=== PATIENT | female | born 1970 | race Caucasian/White ===

== ENCOUNTER 2022-02-01 19:53 | Emergency (ER) | payer OTHER, SELFPAY ==
--- NOTE | ~2022-02-01 | XR_ITS ---
EXAMINATION: XR CHEST CLINICAL INFORMATION: COVID COMPARISON: None TECHNIQUE: Frontal view of the chest was obtained. FINDINGS: No significant abnormality is noted involving the heart, lungs, mediastinum, bony thorax or soft tissues. XR/XR chest 1V IMPRESSION: No acute cardiopulmonary process.
[2022-02-01 20:42] VITALS: BP 158/85; PULSE 97; RESP 20; TEMP 36.9; O2SAT 97; BMI 42.6
[2022-02-01 21:09] LABS: COVID-19 Test Positive (Negative)
--- NOTE | 2022-02-01 23:47 | ED.ASTHMA ---
HPI - Asthma General Chief Complaint: Asthma Stated Complaint: wheezing asthma Time Seen by Provider: 02/01/22 23:39 Source: patient Mode of arrival: ambulatory Limitations: no limitations History of Present Illness HPI Narrative: 52-year-old female with a history of obesity, asthma, heart disease, anxiety who presents to the ER for wheezing, shortness of breath and cough. She states she was seen at [facility] twice last week for panic attacks and shortness of breath. She was prescribed hydroxyzine. Two days ago she started having a dry hacking cough. She has been using her albuterol inhaler 2 times a day but has been trying to avoid using it more than that due to palpitations and anxiety. She denies any fever or chills. No known sick contacts. She denies any chest pain. She has not vaccinated for COVID or flu. MD complaint: shortness of breath and wheezing Onset (ago): day(s) Severity: moderate Context: recent URI Associated symptoms: dry cough Asthma History: adult onset Related Data Current Asthma Therapy: inhaled bronchodilator Previous Rx's Medication Instructions Recorded prednisone 20 mg tablet 40 mg PO DAILY #10 tabs 02/02/22 Allergies Allergy/AdvReac Type Severity Reaction Status Date / Time No Known Allergies Allergy Unverified 12/27/19 15:09 [No Known Allergies*] Review of Systems Review of Systems: Constitutional: No Fever, No Chills ENT/Mouth: No sore throat, No Rhinorrhea Cardiovascular: No Chest Pain, + SOB, No Orthopnea, No Edema Respiratory: + Cough, No Sputum, + Wheezing, No dyspnea Gastrointestinal: No Nausea, No Vomiting, No Diarrhea, No abdominal Pain Musculoskeletal: No joint pain, + Myalgias Skin: No Skin Lesions, No rash Neuro: No Weakness, No Numbness, No Dizziness, No Headache Psych: + Anxiety/Panic, No Depression Heme/Lymph: No Bruising, No Lymphadenopathy PMFSH Social History Social History Patient Tobacco Use Status: Never used Tobacco Advance Directives: No Physical Exam Vital Signs: Vital Signs: Last Vital Signs Temp 98.4 F 02/01/22 20:42 Pulse 97 02/01/22 20:42 Resp 20 02/01/22 20:42 BP 158/85 H 02/01/22 20:42 Pulse Ox 97 02/01/22 20:42 O2 Del Method 02/01/22 20:42 BMI result Body Mass Index 42.6 Appearance: Alert. Oriented X3. No acute distress. Eyes: Pupils equal, round and reactive to light. ENT: Pharynx normal. Neck: Normal inspection. Neck supple. CVS: Normal heart rate and rhythm. Pulses normal. Respiratory: No respiratory distress. Breath sounds normal. Speaks in complete sentences Abdomen: Obese Soft and nontender. +BS x4 Skin: Skin warm and dry. Normal skin color. Normal skin turgor. No rashes. Extremities: No lower extremity edema. No calf tenderness. Neuro: Oriented X 3. Anxious, tearful. Course Course Course Narrative: 53-year-old female with history of asthma, heart disease, anxiety who presents to the ER for evaluation of wheezing, shortness of breath, dry cough. She is found to be COVID positive today. Her oxygen saturations are 97%. She is speaking in full sentences and her lungs are clear. Chest x-ray is negative for any infiltrate or COVID pneumonia. Results were discussed with the patient, she is very anxious and tearful. Given her risk factors and comorbidities will refer her for monoclonal antibodies at [facility]. Her home medicatiosn interact with bereket. Form has been completed and sent over. Will give her short course of prednisone as well for her wheezing. She will follow-up with her PCP. Return precautions were discussed. patient stable for discharge home. MDM - Asthma Lab Data Labs: Lab Results 02/01/22 Range/Units 20:49 COVID-19 (ELDON) Positive A (Negative) COVID-19 Clin Com See Note Discharge Plan Discharge Clinical Impression: COVID-19 Patient Disposition: Home, Self-Care Additional Instructions: You were found to be COVID-19 POSITIVE today. Your chest x-ray and oxygen levels were normal. Rest. Drink plenty of fluids. Do not go out in public for the next 10 days. Take over the counter cold/flu medications as needed for your symptoms. Take Tylenol and/or Motrin as needed for fevers and body aches. Follow up with your doctor this week. If you shortness of breath worsens , if you develop difficulty breathing or any other concerning symptom come back to the ER for further evaluation. Se encontr? que usted es COVID-19 POSITIVO hoy. [place]osey radiograf?a de t?rax y los niveles de ox?natalia fueron normales. Descansar. Beber mucho l?quido. No salga en p?blico radha los pr?ximos 10 d?as. [place] medicamentos de venta darshan para el resfriado o la gripe seg?n sea necesario para meagan s?ntomas. [place] Tylenol y/o Motrin seg?n sea necesario para la fiebre y los piper corporales. Chris un seguimiento con posey m?dico esta semana. Si posey dificultad para respirar empeora, si desarrolla dificultad para respirar o cualquier otro s?ntoma preocupante, regrese a la joey de emergencias para luis evaluaci?n adicional. Prescriptions: New prednisone 20 mg tablet 40 mg PO DAILY Qty: 10 0RF
--- OUTSIDE RECORDS SUMMARY | 2022-02-01 23:49 | XMS_ITS | Continuity of Care Document ---
:1970 Author Organization [facility] Address [address] [place] [id number]- Care Team Providers Name Role Phone Carlos Michelle DO Primary Care Physician Encounter [facility] [place] Date(s): 08/27/21 - 10/02/[address] [address] Attending Physician: Lisa Solares DO Admitting Physician: Lisa Solares DO Allergies, Adverse Reactions, Alerts No Known Allergies Immunizations Given and Recorded Vaccine Date Status Refusal Reason influenza virus vaccine, inactivated 02/19/19 Given influenza virus vaccine, inactivated1 01/10/17 Given influenza virus vaccine, inactivated 05/02/15 Given pneumococcal 23-valent vaccine 10/03/17 Given tetanus/diphtheria/pertussis, acel(Tdap) 10/03/17 Given Influenza Inactive (IM) (oldterm)2 12/18/08 Given Influenza Inactive (IM) (oldterm)3 03/25/08 Given Tet/Diphth/Acel, Pertussis (oldterm)4 03/25/08 Given 1Result Comment: [01/10/2017] [id number] Note: VIS GIVEN 11/19/083Admin Note: vis [id number] Note: vis given Medications acetaminophen 325 mg oral tablet 650 mg, 2, tablet, By Mouth, 4 times a day, PRN, # 16 tablet, Refills 0, Tot. Refills 0, Maintenance, as needed for pain, 06/12/21 21:45:00 EST, Route to Pharmacy Electronically, [facility]/pharmacy #[id number], Partial fill upon patient request if the prescriptio... Start Date: 06/12/21 Status: Orderedacetaminophen 650 mg oral tablet, extended release 1 tablet = 650 mg, By Mouth, Every 8 hours, PRN as needed for pain, # 60 tablet, 0 Refills, Maintenance, 06/06/21 21:01:00 EST, ER Tablet, [facility]/pharmacy #[id number], Partial fill upon patient request if the prescription is for a schedule II opioid drug., 150... Start Date: 06/06/21 Status: Orderedbetamethasone topical dipropionate 0.05% cream 1 application, Topically, Daily, # 45 Gm, 1 Refills, Maintenance, 03/30/18 16:19:01 EST, Cream, 1 application Topically Daily Start Date: 03/30/18 Status: Orderedcetirizine 10 mg oral tablet 1 tablet = 10 mg, By Mouth, Daily, # 30 tablet, 0 Refills, Maintenance, 03/03/20 18:10:00 EST, Tablet, [facility]/pharmacy #[id number], 150, cm, 02/21/20 9:34:00 EST, Height, 96, kg, 10/14/18 15:53:00 EDT, Dry Weight Start Date: 03/03/20 Status: Orderedchlorthalidone 25 mg oral tablet 25 mg, 1, tablet, By Mouth, Daily, Need labwork drawn before refills able to be given, # 30 tablet, Refills 5, Tot. Refills 5, Maintenance, 04/06/21 15:22:00 EST, Route to Pharmacy Electronically, [facility]/pharmacy #[id number], 150, cm, 03/23/21 13:56:00 EST, He... Start Date: 04/06/21 Stop Date: 10/03/21 Status: OrderedCompression Stockings See Instructions, # 1 pair, Maintenance, surgical, calf length 20-30 mm Hg R60.0- E66.9, 10/27/18 10:01:03 EDT, Compound Start Date: 10/27/18 Status: Ordereddiclofenac 1% topical gel 1 application, Topically, 4 times a day, # 100 Gm, 0 Refills, Maintenance, Gel Start Date: 02/19/19 Status: Ordereddiclofenac 1% topical gel 1 application, Topically, 4 times a day, PRN for pain, # 100 Gm, 0 Refills, Maintenance, 06/03/21 15:21:00 EST, Gel, [facility]/pharmacy #[id number], 150, cm, 06/03/21 13:32:00 EST, Height Start Date: 06/03/21 Stop Date: 06/17/21 Status: Ordereddocusate sodium 100 mg oral capsule 100 mg, 1, capsule, By Mouth, 2 times a day, PRN, # 50 capsule, Refills 6, Tot. Refills 6, Maintenance, for constipation, 09/21/18 9:49:50 EDT, Route to Pharmacy Electronically, [id number], [facility]/pharmacy #[id number] Start Date: 09/21/18 Status: Orderedergocalciferol 80159 iu oral capsule 50,000 International_Units, 1, capsule, By Mouth, Every week, take with oily food or milk, # 13 capsule, Refills 0, Tot. Refills 0, Maintenance, 01/18/19 15:18:55 EDT, Route to Pharmacy Electronically, [id number], [facility]/pharmac... Start Date: 01/18/19 Stop Date: 04/18/19 Status: Orderedfamotidine 20 mg oral tablet 20 mg, 1, tablet, By Mouth, 2 times a day, # 60 tablet, Refills 0, Tot. Refills 0, Maintenance, 09/16/21 15:39:00 EDT, Route to Pharmacy Electronically, [facility]/pharmacy #[id number], Partial fill upon patient request if the prescription is for a schedule II opi... Start Date: 09/16/21 Status: Orderedferrous sulfate 325 mg oral enteric coated tablet 325 mg, 1, tablet, By Mouth, Daily, # 45 tablet, Refills 3, Tot. Refills 3, Maintenance, 07/02/21 15:01:00 EDT, Route to Pharmacy Electronically, [facility]/pharmacy #[id number], Partial fill upon patient request if the prescription is for a schedule II opioid jarrett... Start Date: 07/02/21 Status: OrderedFlonase 50 mcg/inh nasal spray 2 sprays, Nares, Both, Daily in AM, # 16 Gm, 2 Refills, Maintenance, 09/21/18 9:51:40 EDT, [place], 2 sprays Nares, Both Daily in AM,x30 days Start Date: 09/21/18 Stop Date: 12/20/18 Status: OrderedFLUoxetine 20 mg oral capsule 20 mg, 1, capsule, By Mouth, Daily, # 90 capsule, Refills 0, Tot. Refills 0, Maintenance, 02/26/21 15:21:00 EST, Route to Pharmacy Electronically, [facility]/pharmacy #[id number], Partial fill upon patient request if the prescription is for a schedule II opioid dr... Start Date: 02/26/21 Status: Orderedfluticasone CFC free 220 mcg/inh inhalation aerosol 1 puffs, Inhalation, 2 times a day, rinse mouth and throat after use, # 12 Gm, 11 Refills, Maintenance, 02/15/18 10:51:40 EST, Aerosol Start Date: 02/15/18 Status: Orderedibuprofen 600 mg oral tablet 600 mg, 1, tablet, By Mouth, 3 times a day, # 90 tablet, Refills 0, Tot. Refills 0, Maintenance, 06/06/21 21:01:00 EST, Route to Pharmacy Electronically, [facility]/pharmacy #[id number], Partial fill upon patient request if the prescription is for a schedule II op... Start Date: 06/06/21 Status: OrderedLidoderm 5% film 1 patch, Topically, Daily, remove patches after 12 hours and leave off for 12 hours before replacing. You may apply 1-2 patches to the area., # 30 patch, 0 Refills, Maintenance, 06/12/21 21:45:00 EST, [facility]/pharmacy #[id number], Partial fill upon patient req... Start Date: 06/12/21 Status: Orderedlosartan 50 mg oral tablet 50 mg, 1, tablet, By Mouth, Daily, # 30 tablet, Refills 5, Tot. Refills 5, Maintenance, 04/06/21 15:22:00 EST, Route to Pharmacy Electronically, [facility]/pharmacy #[id number], 150, cm, 03/23/21 13:56:00 EST, Height Start Date: 04/06/21 Status: OrderedMiraLax oral powder for reconstitution = 17 Gm, By Mouth, Daily, dissolve in water before taking, # 255 Gm, 0 Refills, Maintenance, 07/02/21 22:10:00 EDT, REC Powder, [facility]/pharmacy #[id number], Partial fill upon patient request if the prescriptionis for a schedule II opioid drug., 17 Gm By Mouth... Start Date: 07/02/21 Status: Orderednaproxen 250 mg oral tablet See Instructions, # 60 tablet, TAKE 1 TABLET BY MOUTH TWICE A DAY, [facility]/pharmacy #[id number] Start Date: 01/01/19 Status: OrderedProAir HFA 90 mcg/inh inhalation aerosol with adapter 2, puffs, Inhalation, 4 times a day, PRN, # 2 each, Refills 3, Tot. Refills 3, Maintenance, :03:26 EDT, Route to Pharmacy Electronically, [id number], [facility]/pharmacy #[id number] Start Date: 09/28/18 Stop Date: 09/23/19 Status: OrderedVitamin C 500 mg oral tablet 1 tablet = 500 mg, By Mouth, Daily, # 90 tablet, 0 Refills, Maintenance, 07/02/21 15:01:00 EDT, Tablet, [facility]/pharmacy #[id number], Partial fill upon patient request if the prescription is for a schedule II opioid drug., 150, cm, 07/02/21 14:28:00 EDT, Height... Start Date: 07/02/21 Status: OrderedVitamin C 500 mg oral tablet 1 tablet = 500 mg, By Mouth, Daily, # 30 tablet, 3 Refills, Maintenance, 01/18/19 15:20:18 EDT, Tablet Start Date: 01/18/19 Stop Date: 05/18/19 Status: OrderedVitamin D3 50,000 intl units oral capsule 1 capsule = 1,250 mcg, By Mouth, Every week, # 6 capsule, 0 Refills, Maintenance, 07/02/21 15:09:00 EDT, Capsule, [facility]/pharmacy #[id number], Partial fill upon patient request if the prescription is for a schedule II opioid drug., 150, cm, 07/02/21 14:28:00 E... Start Date: 07/02/21 Stop Date: 08/13/21 Status: OrderedWalker with Wheels Walker with Wheels, See Instructions, # 1 each, Refills 0, Tot. Refills 0, Maintenance, Walker with Wheels Use as directed to assist with ambulation Dx: M54.50, M17.10 Duration: Lifetime, 06/11/21 16:44:00 EST, Supply Start Date: 06/11/21 Status: Ordered Problem List Condition Effective Dates Status Health Status Informant Allergic rhinitis(Confirmed) Active Asthma(Confirmed) Active Breast pain(Confirmed) Active Chronic low back pain(Confirmed) Active H/O vitamin D deficiency(Confirmed) Active Hypertension(Confirmed) Active Iron deficiency anemia(Confirmed)1 Active Lipoma of arm(Confirmed) Active Obesity(Confirmed) Active Knee osteoarthritis(Confirmed) Active Severe obesity(Confirmed) Active 1heavy periods Social History Social History Type Response Smoking Status Current some day smoker; Typ e: Cigarettes; Previous treatment: None; Interested in cessation: Yes; Tobacco use times per day: 3; Number of years: 30; Started at age: 16; entered on: 10/03/17 Sex Female
--- OUTSIDE RECORDS SUMMARY | 2022-02-01 23:49 | XMS_ITS | Continuity of Care Document ---
:1970 Author Organization [facility] Address [address] [place] [address]- Care Team Providers Name Role Phone Carlos Michelle DO Primary Care Physician Encounter [facility] [place] Date(s): 03/03/20 - 06/01/20 [facility] [address] [place] [address] Attending Physician: Claudio Rosario MD Admitting Physician: Claudio Rosario MD Referring Physician: Carlos Michelle DO Allergies, Adverse Reactions, Alerts Substance Reaction Severity Status NKA Active Immunizations Given and Recorded Vaccine Date Status Refusal Reason influenza virus vaccine, inactivated 02/19/19 Given influenza virus vaccine, inactivated1 01/10/17 Given influenza virus vaccine, inactivated 05/02/15 Given pneumococcal 23-valent vaccine 10/03/17 Given tetanus/diphtheria/pertussis, acel(Tdap) 10/03/17 Given Influenza Inactive (IM) (oldterm)2 12/18/08 Given Influenza Inactive (IM) (oldterm)3 03/25/08 Given Tet/Diphth/Acel, Pertussis (oldterm)4 03/25/08 Given 1Result Comment: [01/10/2017] [id number] Note: VIS GIVEN 11/19/083Admin Note: vis [id number] Note: vis given Medications betamethasone topical dipropionate 0.05% cream 1 application, Topically, Daily, # 45 Gm, 1 Refills, Maintenance, 03/30/18 16:19:01 EST, Cream, 1 application Topically Daily Start Date: 03/30/18 Status: Orderedcetirizine 10 mg oral tablet 1 tablet = 10 mg, By Mouth, Daily, # 30 tablet, 0 Refills, Maintenance, 03/03/20 18:10:00 EST, Tablet, [facility]/pharmacy #[id number], 150, cm, 02/21/20 9:34:00 EST, Height, 96, kg, 10/14/18 15:53:00 EDT, Dry Weight Start Date: 03/03/20 Status: Orderedchlorthalidone 25 mg oral tablet 25 mg, 1, tablet, By Mouth, Daily, Need labwork drawn before refills able to be given, # 30 tablet, Refills 0, Tot. Refills 0, Maintenance, 04/16/20 23:31:00 EST, [id number] 150, cm, 02/21/20 9:34:00 EST, Hei... Start Date: 04/16/20 Stop Date: 05/16/20 Status: OrderedCompression Stockings See Instructions, # 1 [...] pain, # 100 Gm, 0 Refills, Maintenance, 02/23/19 14:23:10 EST, Gel Start Date: 02/23/19 Status: Ordereddocusate sodium 100 mg oral capsule 100 mg, 1, capsule, By Mouth, 2 times a day, PRN, # 50 capsule, Refills 6, Tot. Refills 6, Maintenance, for constipation, 09/21/18 9:49:50 EDT, Route to Pharmacy Electronically, [id number], [facility]/pharmacy #[id number] Start Date: 09/21/18 Status: Orderedergocalciferol 64593 iu oral capsule 50,000 International_Units, 1, capsule, By Mouth, Every week, take with oily food or milk, # 13 capsule, Refills 0, Tot. Refills 0, Maintenance, 01/18/19 15:18:55 EDT, Route to Pharmacy Electronically, [id number], [facility]/pharmac... Start Date: 01/18/19 Stop Date: 04/18/19 Status: Orderedferrous sulfate 325 mg oral tablet 1 tablet = 325 mg, By Mouth, Every other day, for 90 days, # 45 tablet, 11 Refills, Hard Stop 11/21/21 14:03:20 EDT, 12/07/18 14:03:20 EDT, Tablet Start Date: 12/07/18 Stop Date: 11/21/21 Status: OrderedFlonase 50 mcg/inh nasal spray 2 sprays, Nares, Both, Daily in AM, # 16 Gm, 2 Refills, Maintenance, 09/21/18 9:51:40 EDT, [place], 2 sprays Nares, Both Daily in AM,x30 days Start Date: 09/21/18 Stop Date: 12/20/18 Status: Orderedfluticasone CFC free 220 mcg/inh inhalation aerosol 1 puffs, Inhalation, 2 times a day, rinse mouth and throat after use, # 12 Gm, 11 Refills, Maintenance, 02/15/18 10:51:40 EST, Aerosol Start Date: 02/15/18 Status: Orderedlosartan 50 mg oral tablet 50 mg, 1, tablet, By Mouth, Daily, # 30 tablet, Refills 5, Tot. Refills 5, Maintenance, 03/03/20 18:11:00 EST, Route to Pharmacy Electronically, [facility]/pharmacy #[id number], 150, cm, 02/21/20 9:34:00 EST, Height, 96, kg, 10/14/18 15:53:00 EDT, Dry Weight Start Date: 03/03/20 Status: Orderednaproxen 250 mg oral tablet See Instructions, # 60 tablet, TAKE 1 TABLET BY MOUTH TWICE A DAY, [facility]/pharmacy #[id number] Start Date: 01/01/19 Status: OrderedProAir HFA 90 mcg/inh inhalation aerosol with adapter 2, puffs, Inhalation, 4 times a day, PRN, # 2 each, Refills 3, Tot. Refills 3, Maintenance, 199:03:26 EDT, Route to Pharmacy Electronically, [id number], [facility] #[id number] Start Date: 09/28/18 Stop Date: 09/23/19 Status: OrderedVitamin C 500 mg oral tablet 1 tablet = 500 mg, By Mouth, Daily, # 30 tablet, 3 Refills, Maintenance, 01/18/19 15:20:18 EDT, Tablet Start Date: 01/18/19 Stop Date: 05/18/19 Status: Ordered Problem List Condition Effective Dates Status Health Status Informant Allergic rhinitis(Confirmed) Active Asthma(Confirmed) Active Breast pain(Confirmed) Active Chronic low back pain(Confirmed) Active H/O vitamin D deficiency(Confirmed) Active Hypertension(Confirmed) Active Iron deficiency anemia(Confirmed)1 Active Lipoma of arm(Confirmed) Active Obesity(Confirmed) Active Knee osteoarthritis(Confirmed) Active 1heavy periods Social History Social History Type Response Smoking Status Current some day smoker; Typ e: Cigarettes; Previous treatment: None; Interested in cessation: Yes; Tobacco use times per day: 3; Number of years: 30; Started at age: 16; entered on: 10/03/17 Sex Female
--- OUTSIDE RECORDS SUMMARY | 2022-02-01 23:49 | XMS_ITS | Continuity of Care Document ---
:1970 Author Organization [facility] Address [address] [place] [address]- Care Team Providers Name Role Phone Carlos Michelle DO Primary Care Physician Encounter [facility] [place] Date(s): 03/23/21 - 03/30/21 [facility] [address], [place] [address] Attending Physician: Kalen Tiwari DO Referring Physician: Carlos Michelle DO Allergies, Adverse [...] Pertussis (oldterm)4 03/25/08 Given 1Result Comment: [01/10/2017] [id number] Note: VIS GIVEN 11/19/083Admin Note: vis [id number] Note: vis given Medications betamethasone topical dipropionate 0.05% cream 1 application, Topically, Daily, # 45 Gm, 1 Refills, Maintenance, 03/30/18 16:19:01 EST, Cream, 1 application Topically Daily Start Date: 03/30/18 Status: Orderedcetirizine 10 mg oral tablet 1 tablet = 10 mg, By Mouth, Daily, # 30 tablet, 0 Refills, Maintenance, 03/03/20 18:10:00 EST, Tablet, [id number], 150, cm, 02/21/20 9:34:00 EST, Height, 96, kg, 10/14/18 15:53:00 EDT, Dry Weight Start Date: 03/03/20 Status: Orderedchlorthalidone 25 mg oral tablet 25 mg, 1, tablet, By Mouth, Daily, Need labwork drawn before refills able to be given, # 30 tablet, Refills 0, Tot. Refills 0, Maintenance, 06/02/20 13:37:00 EST, [id number], cm, 02/21/20 9:34:00 EST, Hei... Start Date: 06/02/20 Stop Date: 07/02/20 Status: Orderedclotrimazole 10 mg oral lozenge 10 mg, 1, lozenge, By Mouth, 5 times a day, for 10 days, # 50 lozenge, Refills 0, Tot. Refills 0, Acute 04/02/21 14:28:00 EST, 03/23/21 14:28:00 EST, [id number] Partial fill upon patient request if the prescr... Start Date: 03/23/21 Stop Date: 04/02/21 Status: OrderedCompression Stockings See Instructions, # 1 [...] 09/21/18 9:49:50 EDT, Route to Pharmacy Electronically, [id number], [facility]acy #[id number] Start Date: 09/21/18 Status: Orderedergocalciferol 86055 iu oral capsule 50,000 International_Units, 1, capsule, By Mouth, Every week, take with oily food or milk, # 13 capsule, Refills 0, Tot. Refills 0, Maintenance, 01/18/19 15:18:55 EDT, Route to Pharmacy Electronically, [id number], [facility]/pharmac... Start Date: 01/18/19 Stop [...] Gm, 2 Refills, Maintenance, 09/21/18 9:51:40 EDT, [place], 2 sprays Nares, Both Daily in AM,x30 days Start Date: 09/21/18 Stop Date: 12/20/18 Status: OrderedFLUoxetine 20 mg oral capsule 20 mg, 1, capsule, By Mouth, Daily, # 90 capsule, Refills 0, Tot. Refills 0, Maintenance, 02/26/21 15:21:00 EST, Route to Pharmacy Electronically, [facility]/pharmacy #[id number], Partial fill upon patient request [...] 03/03/20 18:11:00 EST, Route to Pharmacy Electronically, [facility]/pharmacy #[id number], 150, cm, 02/21/20 9:34:00 EST, Height, 96, kg, 10/14/18 15:53:00 EDT, Dry Weight Start Date: 03/03/20 Status: Orderednaproxen 250 mg oral tablet See Instructions, # 60 tablet, TAKE 1 TABLET BY MOUTH TWICE A DAY, [facility]/pharmacy #[id number] Start Date: 01/01/19 Status: OrderedProAir HFA 90 mcg/inh inhalation aerosol with adapter 2, puffs, Inhalation, 4 times a day, PRN, # 2 each, Refills 3, Tot. Refills 3, Maintenance, 199:03:26 EDT, Route to Pharmacy Electronically, [id number], [facility] #[id number] Start Date: 09/28/18 Stop Date: [...] osteoarthritis(Confirmed) Active Severe obesity(Confirmed) Active 1heavy periods Vital Signs Most recent to oldest [Reference Range]: 1 Height 150 cm (03/23/21 1:56 PM) Oxygen Saturation [94-100 %] 100 % (03/23/21 1:56 PM) Pulse Rate [55-90 bpm] 119 bpm *H* (03/23/21 1:56 PM) Blood Pressure [90-138/55-84 mm Hg] 198/96 mm Hg *H* (03/23/21 1:56 PM) Temperature [96.8-100.4 DegF] 98.7 DegF (03/23/21 1:56 PM) Mode of Delivery (Oxygen) Room air (03/23/21 1:56 PM) Blood pressure sites Arm, right (03/23/21 1:56 PM) Temperature Route Temporal (03/23/21 1:56 PM) Social History Social History Type Response Smoking Status Current some day smoker; Typ e: Cigarettes; Previous treatment: None; Interested in cessation: Yes; Tobacco use times per day: 3; Number of years: 30; Started at age: 16; entered on: 10/03/17 Sex Female
--- OUTSIDE RECORDS SUMMARY | 2022-02-01 23:49 | XMS_ITS | Continuity of Care Document ---
:1970 Author Organization [facility] Address [address] [place] [address]- Care Team Providers Name Role Phone Carlos Michelle DO Primary Care Physician [facility]counter [facility] Date(s): 06/08/21 - 07/08/21 [facility] [address] [place] [id number] Allergies, Adverse Reactions, Alerts No Known Allergies Immunizations Given and Recorded Vaccine Date Status Refusal Reason influenza virus vaccine, inactivated 02/19/19 Given influenza virus vaccine, inactivated1 01/10/17 Given influenza virus vaccine, inactivated 05/02/15 Given pneumococcal 23-valent vaccine 10/03/17 Given tetanus/diphtheria/pertussis, acel(Tdap) 10/03/17 Given Influenza Inactive (IM) (oldterm)2 12/18/08 Given Influenza Inactive (IM) (oldterm)3 03/25/08 Given Tet/Diphth/Acel, Pertussis (oldterm)4 03/25/08 Given 1Result Comment: [01/10/2017] [id number] Note: VIS GIVEN 11/19/083Admin Note: vis [id number] Note: vis given Medications acetaminophen 325 mg oral tablet 650 mg, 2, tablet, By Mouth, 4 times a day, PRN, # 16 tablet, Refills 0, Tot. Refills 0, Maintenance, as needed for pain, 06/12/21 21:45:00 EST, Route to Pharmacy Electronically, [facility]/pharmacy #[id number], Partial fill upon patient request if the prescriptio... Start Date: 06/12/21 Status: Orderedacetaminophen 650 mg oral tablet, extended release 1 tablet = 650 mg, By Mouth, Every 8 hours, PRN as needed for pain, # 60 tablet, 0 Refills, Maintenance, 06/06/21 21:01:00 EST, ER Tablet, [facility]/pharmacy #[id number], Partial fill upon patient request if [...] 0 Refills, Maintenance, 03/03/20 18:10:00 EST, Tablet, [facility]/pharmacy #[id number], 150, cm, 02/21/20 9:34:00 EST, Height, 96, kg, 10/14/18 15:53:00 EDT, Dry Weight Start Date: 03/03/20 Status: Orderedchlorthalidone 25 mg oral tablet 25 mg, 1, tablet, By Mouth, Daily, Need labwork drawn before refills able to be given, # 30 tablet, Refills 5, Tot. Refills 5, Maintenance, 04/06/21 15:22:00 EST, Route to Pharmacy Electronically, [facility]/pharmacy #[id number], 150, cm, 03/23/21 13:56:00 EST, He... [...] 0 Refills, Maintenance, 06/03/21 15:21:00 EST, Gel, [facility]/pharmacy #[id number], 150, cm, 06/03/21 13:32:00 EST, Height Start Date: 06/03/21 Stop Date: 06/17/21 Status: Ordereddocusate sodium 100 mg oral capsule 100 mg, 1, capsule, By Mouth, 2 times a day, PRN, # 50 capsule, Refills 6, Tot. Refills 6, Maintenance, for constipation, 09/21/18 9:49:50 EDT, Route to Pharmacy Electronically, [id number], [facility]/pharmacy #[id number] Start Date: 09/21/18 Status: Orderedergocalciferol 89592 iu oral capsule 50,000 International_Units, 1, capsule, By Mouth, Every week, take with oily food or milk, # 13 capsule, Refills 0, Tot. Refills 0, Maintenance, 01/18/19 15:18:55 EDT, Route to Pharmacy Electronically, [id number], [facility]/pharmac... Start Date: 01/18/19 Stop Date: 04/18/19 Status: Orderedfamotidine 20 mg oral tablet 20 mg, 1, tablet, By Mouth, 2 times a day, # 60 tablet, Refills 0, Tot. Refills 0, Maintenance, 07/02/21 14:53:00 EDT, Route to [facility]ically, [id number], Partial fill upon patient request if the prescription is for a schedule II opi... Start Date: 07/02/21 Status: Orderedferrous sulfate 325 mg oral enteric coated tablet 325 mg, 1, tablet, By Mouth, Daily, # 45 tablet, Refills 3, Tot. Refills 3, Maintenance, 07/02/21 15:01:00 EDT, Route to Pharmacy Electronically, [id number], Partial fill upon patient request if the prescription is for a schedule II opioid jarrett... Start Date: 07/02/21 Status: OrderedFlonase 50 mcg/inh nasal spray 2 sprays, Nares, Both, Daily in AM, # 16 Gm, 2 Refills, Maintenance, 09/21/18 9:51:40 EDT, [place], 2 sprays Nares, Both Daily in AM,x30 days Start Date: 09/21/18 Stop Date: 12/20/18 Status: OrderedFLUoxetine 20 mg oral capsule 20 mg, 1, capsule, By Mouth, Daily, # 90 capsule, Refills 0, Tot. Refills 0, Maintenance, 02/26/21 15:21:00 EST, Route to Pharmacy Electronically, [facility]/pharmacy #[id number], Partial fill upon patient request if [...] 06/06/21 21:01:00 EST, Route to Pharmacy Electronically, [facility]/pharmacy #[id number], Partial fill upon patient request if the prescription is for a schedule II op... Start Date: 06/06/21 Status: OrderedLidoderm 5% film 1 patch, Topically, Daily, remove patches after 12 hours and leave off for 12 hours before replacing. You may apply 1-2 patches to the area., # 30 patch, 0 Refills, Maintenance, 06/12/21 21:45:00 EST, [facility]/pharmacy #[id number], Partial fill upon patient req... Start Date: 06/12/21 Status: Orderedlosartan 50 mg oral tablet 50 mg, 1, tablet, By Mouth, Daily, # 30 tablet, Refills 5, Tot. Refills 5, Maintenance, 04/06/21 15:22:00 EST, Route to Pharmacy Electronically, [facility]/pharmacy #[id number], 150, cm, 03/23/21 13:56:00 EST, Height Start Date: 04/06/21 Status: OrderedMiraLax oral powder for reconstitution = 17 Gm, By Mouth, Daily, dissolve in water before taking, # 255 Gm, 0 Refills, Maintenance, 07/02/21 22:10:00 EDT, REC Powder, [facility]/pharmacy #[id number], Partial fill upon patient request if the prescriptionis for a schedule II opioid drug., 17 Gm By Mouth... Start Date: 07/02/21 Status: Orderednaproxen 250 mg oral tablet See Instructions, # 60 tablet, TAKE 1 TABLET BY MOUTH TWICE A DAY, [facility] #[id number] Start Date: 01/01/19 Status: OrderedProAir HFA 90 mcg/inh inhalation aerosol with adapter 2, puffs, Inhalation, 4 times a day, PRN, # 2 each, Refills 3, Tot. Refills 3, Maintenance, :03:26 EDT, Route to Pharmacy Electronically, [id number], [facility]/pharm[facility] #[id number] Start Date: 09/28/18 Stop Date: 09/23/19 Status: OrderedVitamin C 500 mg oral tablet 1 tablet = 500 mg, By Mouth, Daily, # 90 tablet, 0 Refills, Maintenance, 07/02/21 15:01:00 EDT, Tablet, [facility]/pharm[facility] #[id number], Partial fill upon patient request if [...] 0 Refills, Maintenance, 07/02/21 15:09:00 EDT, Capsule, [facility]/pharmacy #[id number], Partial fill upon patient request if [...]
--- OUTSIDE RECORDS SUMMARY | 2022-02-01 23:49 | XMS_ITS | Continuity of Care Document ---
:1970 Author Organization [facility] Address [address] [place] [id number]- Care Team Providers Name Role Phone Carlos Michelle DO Primary Care Physician Encounter [facility] [place] Date(s): 07/20/21 - 08/26/21 [facility] [address] [place] [id number] Attending Physician: Not on Staff, Attending MD Allergies, Adverse Reactions, Alerts No Known Allergies Immunizations Given and Recorded Vaccine Date Status Refusal Reason influenza virus vaccine, inactivated 02/19/19 Given influenza virus vaccine, inactivated1 01/10/17 Given influenza virus vaccine, inactivated 05/02/15 Given pneumococcal 23-valent vaccine 10/03/17 Given tetanus/diphtheria/pertussis, acel(Tdap) 10/03/17 Given Influenza Inactive (IM) (oldterm)2 12/18/08 Given Influenza Inactive (IM) (oldterm)3 03/25/08 Given Tet/Diphth/Acel, Pertussis (oldterm)4 03/25/08 Given 1Result Comment: [01/10/2017] [id number] Note: VIS GIVEN 11/19/083Admin Note: vis [id number] Note: vis given Medications acetaminophen 325 mg oral tablet 650 mg, 2, tablet, By Mouth, 4 times a day, PRN, # 16 tablet, Refills 0, Tot. Refills 0, Maintenance, as needed for pain, 06/12/21 21:45:00 EST, Route to Pharmacy Electronically, [facility]/pharmacy #[id number], Partial fill upon patient request if the prescriptio... Start Date: 06/12/21 Status: Orderedacetaminophen 650 mg oral tablet, extended release 1 tablet = 650 mg, By Mouth, Every 8 hours, PRN as needed for pain, # 60 tablet, 0 Refills, Maintenance, 06/06/21 21:01:00 EST, ER Tablet, [facility]/pharmacy #[id number], Partial fill upon patient request [...] 0 Refills, Maintenance, 03/03/20 18:10:00 EST, Tablet, [facility]pharm[facility] #[id number], 150, cm, 02/21/20 9:34:00 EST, Height, 96, kg, 10/14/18 15:53:00 EDT, Dry Weight Start Date: 03/03/20 Status: Orderedchlorthalidone 25 mg oral tablet 25 mg, 1, tablet, By Mouth, Daily, Need labwork drawn before refills able to be given, # 30 tablet, Refills 5, Tot. Refills 5, Maintenance, 04/06/21 15:22:00 EST, Route to Pharmacy Electronically, [facility]/pharm[facility] #[id number], 150, cm, 03/23/21 13:56:00 EST, [...] 0 Refills, Maintenance, 06/03/21 15:21:00 EST, Gel, [facility]/pharmacy #[id number], 150, cm, 06/03/21 13:32:00 EST, Height Start Date: 06/03/21 Stop Date: 06/17/21 Status: Ordereddocusate sodium 100 mg oral capsule 100 mg, 1, capsule, By Mouth, 2 times a day, PRN, # 50 capsule, Refills 6, Tot. Refills 6, Maintenance, for constipation, 09/21/18 9:49:50 EDT, Route to Pharmacy Electronically, [id number], [facility]/pharmacy #[id number] Start Date: 09/21/18 Status: Orderedergocalciferol 66408 iu oral capsule 50,000 International_Units, 1, capsule, By Mouth, Every week, take with oily food or milk, # 13 capsule, Refills 0, Tot. Refills 0, Maintenance, 01/18/19 15:18:55 EDT, Route to Pharmacy Electronically, [id number], [facility]/pharmac... Start Date: 01/18/19 Stop Date: 04/18/19 Status: Orderedfamotidine 20 mg oral tablet 20 mg, 1, tablet, By Mouth, 2 times a day, # 60 tablet, Refills 0, Tot. Refills 0, Maintenance, 07/02/21 14:53:00 EDT, Route to Pharmacy Electronically, [facility]/pharmacy #[id number], Partial fill upon patient request if the prescription is for a schedule II opi... Start Date: 07/02/21 Status: Orderedferrous sulfate 325 mg oral enteric coated tablet 325 mg, 1, tablet, By Mouth, Daily, # 45 tablet, Refills 3, Tot. Refills 3, Maintenance, 07/02/21 15:01:00 EDT, Route to Pharmacy Electronically, [facility]/pharmacy #[id number], Partial fill upon patient request if the prescription is for a schedule II opioid jarrett... Start Date: 07/02/21 Status: OrderedFlonase 50 mcg/inh nasal spray 2 sprays, Nares, Both, Daily in AM, # 16 Gm, 2 Refills, Maintenance, 09/21/18 9:51:40 EDT, [place], 2 sprays Nares, Both Daily in AM,x30 days Start Date: 09/21/18 Stop Date: 12/20/18 Status: OrderedFLUoxetine 20 mg oral capsule 20 mg, 1, capsule, By Mouth, Daily, # 90 capsule, Refills 0, Tot. Refills 0, Maintenance, 02/26/21 15:21:00 EST, Route to Pharmacy Electronically, [facility]/pharmacy #[id number], Partial fill upon patient request [...] 06/06/21 21:01:00 EST, Route to Pharmacy Electronically, [facility]/pharmacy #[id number], Partial fill upon patient request if the prescription is for a schedule II op... Start Date: 06/06/21 Status: OrderedLidoderm 5% film 1 patch, Topically, Daily, remove patches after 12 hours and leave off for 12 hours before replacing. You may apply 1-2 patches to the area., # 30 patch, 0 Refills, Maintenance, 06/12/21 21:45:00 EST, [facility]/pharmacy #[id number], Partial fill upon patient req... Start Date: 06/12/21 Status: Orderedlosartan 50 mg oral tablet 50 mg, 1, tablet, By Mouth, Daily, # 30 tablet, Refills 5, Tot. Refills 5, Maintenance, 04/06/21 15:22:00 EST, Route to Pharmacy Electronically, [facility]/pharmacy #[id number], 150, cm, 03/23/21 13:56:00 EST, Height Start Date: 04/06/21 Status: Orderedmelatonin 3 mg oral tablet 2 tablet = 6 mg, By Mouth, Daily at bedtime, PRN for insomnia, # 60 tablet, 1 Refills, Acute 09/23/21 15:07:00 EDT, 07/24/21 15:07:00 EDT, Tablet, [facility] 150, cm, 07/16/21 13:22:00EDT, Height, 96.8, kg, 06/12/21 22:20:00 EST, Dry... Start Date: 07/24/21 Stop Date: 09/23/21 Status: OrderedMiraLax oral powder for reconstitution = 17 Gm, By Mouth, Daily, dissolve in water before taking, # 255 Gm, 0 Refills, Maintenance, 07/02/21 22:10:00 EDT, REC Powder, [facility]/pharmacy #[id number], Partial fill upon patient request if the prescriptionis for a schedule II opioid drug., 17 Gm By Mouth... Start Date: 07/02/21 Status: Orderednaproxen 250 mg oral tablet See Instructions, # 60 tablet, TAKE 1 TABLET BY MOUTH TWICE A DAY, [facility]/pharm[facility] #[id number] Start Date: 01/01/19 Status: OrderedProAir HFA 90 mcg/inh inhalation aerosol with adapter 2, puffs, Inhalation, 4 times a day, PRN, # 2 each, Refills 3, Tot. Refills 3, Maintenance, :03:26 EDT, Route to Pharmacy Electronically, [id number], [facility]/pharm[facility] #[id number] Start Date: 09/28/18 Stop Date: 09/23/19 Status: OrderedVitamin C 500 mg oral tablet 1 tablet = 500 mg, By Mouth, Daily, # 90 tablet, 0 Refills, Maintenance, 07/02/21 15:01:00 EDT, Tablet, [facility]/pharmacy #[id number], Partial fill upon patient request [...] 0 Refills, Maintenance, 07/02/21 15:09:00 EDT, Capsule, [id number], Partial fill upon patient request if the [...]
--- OUTSIDE RECORDS SUMMARY | 2022-02-01 23:49 | XMS_ITS | Continuity of Care Document ---
:1970 Author Organization [facility] Address [address] [place] [address]- Care Team Providers Name Role Phone Carlos Michelle DO Primary Care Physician [facility]counter [facility] Date(s): 09/17/21 - 10/17/21 [facility] [address] [place] [id number] Allergies, Adverse Reactions, Alerts No Known [...] Pertussis (oldterm)4 03/25/08 Given 1Result Comment: [01/10/2017] [id number] Note: VIS GIVEN 11/19/083Admin Note: vis [id number] Note: vis given Medications acetaminophen 325 mg oral tablet 650 mg, 2, tablet, By Mouth, 4 times a day, PRN, # 16 tablet, Refills 0, Tot. Refills 0, Maintenance, as needed for pain, 06/12/21 21:45:00 EST, Route to Pharmacy Electronically, [facility]/pharmacy #[id number], Partial fill upon patient request if the prescriptio... Start Date: 06/12/21 Status: Orderedacetaminophen 650 mg oral tablet, extended release 1 tablet = 650 mg, By Mouth, Every 8 hours, PRN as needed for pain, # 60 tablet, 0 Refills, Maintenance, 06/06/21 21:01:00 EST, ER Tablet, [facility]/pharmacy #[id number], Partial fill upon patient request if [...] 0 Refills, Maintenance, 03/03/20 18:10:00 EST, Tablet, [facility]/pharmacy #[id number], 150, cm, 02/21/20 9:34:00 EST, Height, 96, kg, 10/14/18 15:53:00 EDT, Dry Weight Start Date: 03/03/20 Status: Orderedchlorthalidone 25 mg oral tablet 25 mg, 1, tablet, By Mouth, Daily, Need labwork drawn before refills able to be given, # 30 tablet, Refills 5, Tot. Refills 5, Maintenance, 04/06/21 15:22:00 EST, Route to Pharmacy Electronically, [facility]/pharmacy #[id number], 150, cm, 03/23/21 13:56:00 EST, He... [...] 0 Refills, Maintenance, 06/03/21 15:21:00 EST, Gel, [facility]/pharmacy #[id number], 150, cm, 06/03/21 13:32:00 EST, Height Start Date: 06/03/21 Stop Date: 06/17/21 Status: Ordereddocusate sodium 100 mg oral capsule 100 mg, 1, capsule, By Mouth, 2 times a day, PRN, # 50 capsule, Refills 6, Tot. Refills 6, Maintenance, for constipation, 09/21/18 9:49:50 EDT, Route to Pharmacy Electronically, [id number], [facility]/pharmacy #[id number] Start Date: 09/21/18 Status: Orderedergocalciferol 10287 iu oral capsule 50,000 International_Units, 1, capsule, By Mouth, Every week, take with oily food or milk, # 13 capsule, Refills 0, Tot. Refills 0, Maintenance, 01/18/19 15:18:55 EDT, Route to Pharmacy Electronically, [id number], [facility]/pharmac... Start Date: 01/18/19 Stop Date: 04/18/19 Status: Orderedfamotidine 20 mg oral tablet 20 mg, 1, tablet, By Mouth, 2 times a day, # 60 tablet, Refills 0, Tot. Refills 0, Maintenance, 09/16/21 15:39:00 EDT, Route to Pharmacy Electronically, [facility]/pharmacy #[id number], Partial fill upon patient request if [...] Gm, 2 Refills, Maintenance, 09/21/18 9:51:40 EDT, [place], 2 sprays Nares, Both Daily in AM,x30 days Start Date: 09/21/18 Stop Date: 12/20/18 Status: OrderedFLUoxetine 20 mg oral capsule 20 mg, 1, capsule, By Mouth, Daily, # 90 capsule, Refills 0, Tot. Refills 0, Maintenance, 02/26/21 15:21:00 EST, Route to Pharmacy Electronically, [facility]/pharmacy #[id number], Partial fill upon patient request if [...] 06/06/21 21:01:00 EST, Route to Pharmacy Electronically, [facility]/pharmacy #[id number], Partial fill upon patient request if the prescription is for a schedule II op... Start Date: 06/06/21 Status: OrderedLidoderm 5% film 1 patch, Topically, Daily, remove patches after 12 hours and leave off for 12 hours before replacing. You may apply 1-2 patches to the area., # 30 patch, 0 Refills, Maintenance, 06/12/21 21:45:00 EST, [facility]/pharmacy #[id number], Partial fill upon patient req... Start Date: 06/12/21 Status: Orderedlosartan 50 mg oral tablet 50 mg, 1, tablet, By Mouth, Daily, # 30 tablet, Refills 5, Tot. Refills 5, Maintenance, 04/06/21 15:22:00 EST, Route to Pharmacy Electronically, [facility]/pharmacy #[id number], 150, cm, 03/23/21 13:56:00 EST, Height Start Date: 04/06/21 Status: OrderedMiraLax oral powder for reconstitution = 17 Gm, By Mouth, Daily, dissolve in water before taking, # 255 Gm, 0 Refills, Maintenance, 07/02/21 22:10:00 EDT, REC Powder, [facility]/pharmacy #[id number], Partial fill upon patient request if the prescriptionis for a schedule II opioid drug., 17 Gm By Mouth... Start Date: 07/02/21 Status: Orderednaproxen 250 mg oral tablet See Instructions, # 60 tablet, TAKE 1 TABLET BY MOUTH TWICE A DAY, [facility]/pharmacy #[id number] Start Date: 01/01/19 Status: OrderedProAir HFA 90 mcg/inh inhalation aerosol with adapter 2, puffs, Inhalation, 4 times a day, PRN, # 2 each, Refills 3, Tot. Refills 3, Maintenance, 199:03:26 EDT, Route to Pharmacy Electronically, [id number], [facility]/pharmacy #[id number] Start Date: 09/28/18 Stop Date: 09/23/19 Status: OrderedVitamin C 500 mg oral tablet 1 tablet = 500 mg, By Mouth, Daily, # 90 tablet, 0 Refills, Maintenance, 07/02/21 15:01:00 EDT, Tablet, [facility]/pharmacy #[id number], Partial fill upon patient request if [...] 0 Refills, Maintenance, 07/02/21 15:09:00 EDT, Capsule, [facility]/pharmacy #[id number], Partial fill upon patient request if [...]
--- OUTSIDE RECORDS SUMMARY | 2022-02-01 23:49 | XMS_ITS | Continuity of Care Document ---
:1970 Author Organization [facility] Address [address] [place] [id number]- Care Team Providers Name Role Phone Carlos Michelle DO Primary Care Physician [facility]): [facility]/21 - 04/22/21 [facility] [address] [place] [id number] Allergies, Adverse Reactions, Alerts Substance Reaction Severity [...] Pertussis (oldterm)4 03/25/08 Given 1Result Comment: [01/10/2017] [id number] Note: VIS GIVEN 11/19/083Admin Note: vis [id number] Note: vis given Medications betamethasone topical dipropionate [...] 04/06/21 15:22:00 EST, Route to Pharmacy Electronically, [facility]/pharmacy #[id number], 150, cm, 03/23/21 13:56:00 EST, He... [...] 09/21/18 9:49:50 EDT, Route to Pharmacy Electronically, [id number], [facility]/pharmacy #[id number] Start Date: 09/21/18 Status: Orderedergocalciferol 27560 iu oral capsule 50,000 International_Units, 1, capsule, By Mouth, Every week, take with oily food or milk, # 13 capsule, Refills 0, Tot. Refills 0, Maintenance, 01/18/19 15:18:55 EDT, Route to Pharmacy Electronically, [id number], [facility]/pharmac... Start Date: 01/18/19 Stop Date: 04/18/19 Status: Orderedferrous sulfate 325 mg oral enteric coated tablet 325 mg, 1, tablet, By Mouth, Every other day, # 45 tablet, Refills 3, Tot. Refills 3, Maintenance, 04/22/21 10:25:00 EST, Route to Pharmacy Electronically, [facility]/pharmacy #[id number], Partial fill upon patientrequest if the prescription is for a schedule II... Start Date: 04/22/21 Status: Orderedferrous sulfate 325 mg oral tablet 1 tablet = 325 mg, By Mouth, Every other day, for 90 days, # 45 tablet, 11 Refills, Hard Stop 11/21/21 14:03:20 EDT, 12/07/18 14:03:20 EDT, Tablet Start Date: 12/07/18 Stop Date: 11/21/21 Status: OrderedFlonase 50 mcg/inh nasal spray 2 sprays, Nares, Both, Daily in AM, # 16 Gm, 2 Refills, Maintenance, 09/21/18 9:51:40 EDT, [place], 2 sprays Nares, Both Daily in AM,x30 days Start Date: 09/21/18 Stop Date: 12/20/18 Status: OrderedFLUoxetine 20 mg oral capsule 20 mg, 1, capsule, By Mouth, Daily, # 90 capsule, Refills 0, Tot. Refills 0, Maintenance, 02/26/21 15:21:00 EST, Route to Pharmacy Electronically, [facility]/pharmacy #[id number], Partial fill upon patient request if [...] 04/06/21 15:22:00 EST, Route to Pharmacy Electronically, [facility]/pharmacy #[id number], 150, cm, 03/23/21 13:56:00 EST, Height Start Date: 04/06/21 Status: Orderednaproxen 250 mg oral tablet See Instructions, # 60 tablet, TAKE 1 TABLET BY MOUTH TWICE A DAY, [facility]/pharmacy #[id number] Start Date: 01/01/19 Status: OrderedProAir HFA 90 mcg/inh inhalation aerosol with adapter 2, puffs, Inhalation, 4 times a day, PRN, # 2 each, Refills 3, Tot. Refills 3, Maintenance, 199:03:26 EDT, Route to Pharmacy Electronically, [id number], [facility]/pharmacy #[id number] Start Date: 09/28/18 Stop Date: 09/23/19 Status: OrderedVitamin C 500 mg oral tablet 1 tablet = 500 mg, By Mouth, Daily, # 30 tablet, 3 Refills, Maintenance, 01/18/19 15:20:18 EDT, Tablet Start Date: 01/18/19 Stop Date: 05/18/19 Status: OrderedVitamin D3 1000 intl units oral tablet 1 tablet = 25 mcg, By Mouth, Daily, # 90 tablet, 3 Refills, Maintenance, 04/22/21 10:25:00 EST, Tablet, [facility]/pharmacy #[id number], Partial fill upon patient request if the prescription is for a schedule II opioid drug., 150, cm, 04/09/21 13:44:00 EST, Height Start Date: 04/22/21 Status: Ordered Problem List Condition Effective Dates [...]
--- OUTSIDE RECORDS SUMMARY | 2022-02-01 23:49 | XMS_ITS | Continuity of Care Document ---
:1970 Author Organization [facility] Address [address] [place] [phone]- Care Team Providers Name Role Phone Carlos Michelle DO Primary Care Physician [facility] Date[facility]s): 12/25/19 - 01/24/20 [facility] [address] [place] [id number]- [facility] Allergies, Adverse Reactions, Alerts Substance Reaction Severity [...] Pertussis (oldterm)4 03/25/08 Given 1Result Comment: [01/10/2017] [id number] Note: VIS GIVEN 11/19/083Admin Note: vis [id number] Note: vis given Medications betamethasone topical dipropionate 0.05% cream 1 application, Topically, Daily, # 45 Gm, 1 Refills, Maintenance, 03/30/18 16:19:01 EST, Cream, 1 application Topically Daily Start Date: 03/30/18 Status: Orderedcetirizine 10 mg oral tablet 1 tablet = 10 mg, By Mouth, Daily, # 30 tablet, 0 Refills, Maintenance, 03/30/18 16:19:36 EST, Tablet Start Date: 12/20/18 Status: Orderedchlorthalidone 25 mg oral tablet 25 mg, 1, tablet, By Mouth, Daily, STOP HCTZ/Lisinopril and amlodipine, # 30 tablet, Refills 11, Tot. Refills 11, Maintenance, 04/02/19 13:09:00 EST, Route to Pharmacy Electronically, [facility]/pharmacy #[id number], 150, cm, 02/19/19 10:56:00 EST, Height, 96, kg,... Start Date: 04/02/19 Stop Date: 03/27/20 Status: OrderedCompression Stockings See Instructions, # 1 [...] 09/21/18 9:49:50 EDT, Route to Pharmacy Electronically, [id number], [facility]/pharmacy #[id number] Start Date: 09/21/18 Status: Orderedergocalciferol 91885 iu oral capsule 50,000 International_Units, 1, capsule, By Mouth, Every week, take with oily food or milk, # 13 capsule, Refills 0, Tot. Refills 0, Maintenance, 01/18/19 15:18:55 EDT, Route to Pharmacy Electronically, [id number], [facility]/pharmac... Start Date: 01/18/19 Stop Date: [...] Gm, 2 Refills, Maintenance, 09/21/18 9:51:40 EDT, [place], 2 sprays Nares, Both Daily in AM,x30 [...] By Mouth, Daily, # 30 tablet, Refills 11, Tot. Refills 11, Maintenance, 06/07/19 15:51:00 EST, Route to Pharmacy Electronically, [facility]/pharmacy #[id number], 150, cm, 06/07/19 15:22:00 EST, Height, 96, kg, 10/14/18 15:53:00 EDT, Dry Weight Start Date: 06/07/19 Status: Orderedmelatonin 3 mg oral tablet 2 tablet = 6 mg, By Mouth, Daily at bedtime, PRN for insomnia, # 60 tablet, 1 Refills, Acute 05/15/20 15:55:00 EST, 06/07/19 15:55:00 EST, Tablet, [facility]/pharmacy #[id number], 150, cm, 06/07/19 15:22:00 EST, Height, 96, kg, 10/14/18 15:53:00 EDT, Dry Weight Start Date: 06/07/19 Stop Date: 05/15/20 Status: Orderednaproxen 250 mg oral tablet See Instructions, # 60 tablet, TAKE 1 TABLET BY MOUTH TWICE A DAY, [facility]/pharmacy #[id number] Start Date: 01/01/19 Status: OrderedProAir HFA 90 mcg/inh inhalation aerosol with adapter 2, puffs, Inhalation, 4 times a day, PRN, # 2 each, Refills 3, Tot. Refills 3, Maintenance, 199:03:26 EDT, Route to Pharmacy Electronically, [id number], [facility]/pharmacy #[id number] Start Date: 09/28/18 Stop [...]
--- OUTSIDE RECORDS SUMMARY | 2022-02-01 23:49 | XMS_ITS | Continuity of Care Document ---
:1970 Author Organization [facility] Address [address] [place] [address]- Care Team Providers Name Role Phone Carlos Michelle DO Primary Care Physician Encounter [facility] Date(s): 05/02/20 - 06/01/20 [facility] [address] [place] [id number] Attending Physician: Sanjana Green Admitting Physician: AdmSanjana sevilla Referring Physician: AdmtrSanjana Allergies, Adverse Reactions, Alerts Substance Reaction Severity [...] Pertussis (oldterm)4 03/25/08 Given 1Result Comment: [01/10/2017] [id number] Note: VIS GIVEN 11/19/083Admin Note: vis [id number] Note: vis given Medications betamethasone topical dipropionate 0.05% cream 1 application, Topically, Daily, # 45 Gm, 1 Refills, Maintenance, 03/30/18 16:19:01 EST, Cream, 1 application Topically Daily Start Date: 03/30/18 Status: Orderedcetirizine 10 mg oral tablet 1 tablet = 10 mg, By Mouth, Daily, # 30 tablet, 0 Refills, Maintenance, 11/23/20 18:10:00 EST, Tablet, [facility]/pharmacy #[id number], 150, cm, 02/21/20 9:34:00 EST, Height, 96, kg, 10/14/18 15:53:00 EDT, Dry Weight Start Date: 03/03/20 Status: Orderedchlorthalidone 25 mg oral tablet 25 mg, 1, tablet, By Mouth, Daily, Need labwork drawn before refills able to be given, # 30 tablet, Refills 0, Tot. Refills 0, Maintenance, 04/16/20 23:31:00 EST, [id number] 150, cm, 02/21/20 9:34:00 EST, [...] 09/21/18 9:49:50 EDT, Route to Pharmacy Electronically, [id number], [facility]/pharmacy #[id number] Start Date: 09/21/18 Status: Orderedergocalciferol 99835 iu oral capsule 50,000 International_Units, 1, capsule, By Mouth, Every week, take with oily food or milk, # 13 capsule, Refills 0, Tot. Refills 0, Maintenance, 01/18/19 15:18:55 EDT, Route to Pharmacy Electronically, [id number], [facility]/pharmac... Start Date: 01/18/19 Stop Date: 04/18/19 [...] Gm, 2 Refills, Maintenance, 09/21/18 9:51:40 EDT, [place], 2 sprays Nares, Both Daily in AM,x30 [...] 03/03/20 18:11:00 EST, Route to Pharmacy Electronically, [facility]/pharmacy #[id number], 150, cm, 02/21/20 9:34:00 EST, Height, 96, kg, 10/14/18 15:53:00 EDT, Dry Weight Start Date: 03/03/20 Status: Orderednaproxen 250 mg oral tablet See Instructions, # 60 tablet, TAKE 1 TABLET BY MOUTH TWICE A DAY, [facility]/pharmacy #[id number] Start Date: 01/01/19 Status: OrderedProAir HFA 90 mcg/inh inhalation aerosol with adapter 2, puffs, Inhalation, 4 times a day, PRN, # 2 each, Refills 3, Tot. Refills 3, Maintenance, :03:26 EDT, Route to Pharmacy Electronically, [id number], [facility]/pharmacy #[id number] Start Date: 09/28/18 Stop Date: [...]
--- OUTSIDE RECORDS SUMMARY | 2022-02-01 23:49 | XMS_ITS | Continuity of Care Document ---
:1970 Author Organization [facility] Address [address] [place] [phone]- Care Team Providers Name Role Phone Carlos Michelle DO Primary Care Physician [facility]): 07[facility]20 - 08/27/20 [facility] [address] [place] [id number] Allergies, Adverse Reactions, Alerts Substance Reaction [...] Pertussis (oldterm)4 03/25/08 Given 1Result Comment: [01/10/2017] [id number] Note: VIS GIVEN 11/19/083Admin Note: vis [id number] Note: vis given Medications betamethasone topical dipropionate 0.05% cream 1 application, Topically, Daily, # 45 Gm, 1 Refills, Maintenance, 03/30/18 16:19:01 EST, Cream, 1 application Topically Daily Start Date: 03/30/18 Status: Orderedcetirizine 10 mg oral tablet 1 tablet = 10 mg, By Mouth, Daily, # 30 tablet, 0 Refills, Maintenance, 03/03/20 18:10:00 EST, Tablet, [id number], 150, cm, 11/12/20 9:34:00 EST, Height, 96, kg, 10/14/18 15:53:00 EDT, Dry Weight Start Date: 03/03/20 Status: Orderedchlorthalidone 25 mg oral tablet 25 mg, 1, tablet, By Mouth, Daily, Need labwork drawn before refills able to be given, # 30 tablet, Refills 0, Tot. Refills 0, Maintenance, 06/02/20 13:37:00 EST, Route to Pharmacy Electronically, [facility]/pharmacy #[id number], 150, cm, 02/21/20 9:34:00 EST, Hei... Start Date: 06/02/20 Stop Date: 07/02/20 Status: OrderedCompression Stockings See Instructions, # 1 [...] 09/21/18 9:49:50 EDT, Route to Pharmacy Electronically, [id number], [facility]/pharmacy #[id number] Start Date: 09/21/18 Status: Orderedergocalciferol 22897 iu oral capsule 50,000 International_Units, 1, capsule, By Mouth, Every week, take with oily food or milk, # 13 capsule, Refills 0, Tot. Refills 0, Maintenance, 01/18/19 15:18:55 EDT, Route to Pharmacy Electronically, [id number], [facility]/pharmac... Start Date: 01/18/19 Stop Date: 04/18/19 [...] Gm, 2 Refills, Maintenance, 09/21/18 9:51:40 EDT, [place], 2 sprays Nares, Both Daily in AM,x30 [...] 03/03/20 18:11:00 EST, Route to Pharmacy Electronically, [facility]/pharmacy #[id number], 150, cm, 02/21/20 9:34:00 EST, Height, 96, kg, 10/14/18 15:53:00 EDT, Dry Weight Start Date: 03/03/20 Status: Orderednaproxen 250 mg oral tablet See Instructions, # 60 tablet, TAKE 1 TABLET BY MOUTH TWICE A DAY, [facility]/pharmacy #[id number] Start Date: 01/01/19 Status: OrderedProAir HFA 90 mcg/inh inhalation aerosol with adapter 2, puffs, Inhalation, 4 times a day, PRN, # 2 each, Refills 3, Tot. Refills 3, Maintenance, 199:03:26 EDT, Route to Pharmacy Electronically, [id number], [facility]/pharmacy #[id number] Start Date: 09/28/18 Stop Date: [...]
--- OUTSIDE RECORDS SUMMARY | 2022-02-01 23:49 | XMS_ITS | Continuity of Care Document ---
:1970 Author Organization [facility] Address [address] [place] [id number]- Care Team Providers Name Role Phone Timo Srinivasan MD, Gary Disla Primary Care Physician [facility]): 12/09/21 - 01/08/22 [facility] [address] [place] [id number] Allergies, Adverse Reactions, Alerts [...] Pertussis (oldterm)4 03/25/08 Given 1Result Comment: [01/10/2017] [id number] Note: VIS GIVEN 11/19/083Admin Note: vis [id number] Note: vis given Medications acetaminophen 325 mg oral tablet 650 mg, 2, tablet, By Mouth, 4 times a day, PRN, # 16 tablet, Refills 0, Tot. Refills 0, Maintenance, as needed for pain, 06/12/21 21:45:00 EST, Route to Pharmacy Electronically, [facility]/pharmacy #[id number], Partial fill upon patient request if the prescriptio... Start Date: 06/12/21 Status: Orderedacetaminophen 650 mg oral tablet, extended release 1 tablet = 650 mg, By Mouth, Every 8 hours, PRN as needed for pain, # 60 tablet, 0 Refills, Maintenance, 06/06/21 21:01:00 EST, ER Tablet, [facility]/pharmacy #[id number], Partial fill [...] 0 Refills, Maintenance, 03/03/20 18:10:00 EST, Tablet, [facility]/pharmacy #[id number], 150, cm, 02/21/20 9:34:00 EST, Height, 96, kg, 10/14/18 15:53:00 EDT, Dry Weight Start Date: 03/03/20 Status: Orderedchlorthalidone 25 mg oral tablet 25 mg, 1, tablet, By Mouth, Daily, Need labwork drawn before refills able to be given, # 30 tablet, Refills 5, Tot. Refills 5, Maintenance, 04/06/21 15:22:00 EST, Route to Pharmacy Electronically, [facility]/pharmacy #[id number], 150, cm, 03/23/21 13:56:00 EST, [...] 0 Refills, Maintenance, 06/03/21 15:21:00 EST, Gel, [facility]/pharmacy #[id number], 150, cm, 06/03/21 13:32:00 EST, Height Start Date: 06/03/21 Stop Date: 06/17/21 Status: Ordereddocusate sodium 100 mg oral capsule 100 mg, 1, capsule, By Mouth, 2 times a day, PRN, # 50 capsule, Refills 6, Tot. Refills 6, Maintenance, for constipation, 09/21/18 9:49:50 EDT, Route to Pharmacy Electronically, [id number], [facility]/pharmacy #[id number] Start Date: 09/21/18 Status: Orderedergocalciferol 38108 iu oral capsule 50,000 International_Units, 1, capsule, By Mouth, Every week, take with oily food or milk, # 13 capsule, Refills 0, Tot. Refills 0, Maintenance, 01/18/19 15:18:55 EDT, Route to Pharmacy Electronically, [id number], [facility]... Start Date: 01/18/19 Stop Date: 04/18/19 Status: Orderedfamotidine 20 mg oral tablet 20 mg, 1, tablet, By Mouth, 2 times a day, # 60 tablet, Refills 2, Tot. Refills 2, Maintenance, 12/07/21 17:27:00 EDT, Route to Pharmacy Electronically, [id number], Partial fill upon patient request if the prescription is for a schedule II opi... Start Date: 12/07/21 Status: Orderedferrous sulfate 325 mg oral enteric [...] Gm, 2 Refills, Maintenance, 09/21/18 9:51:40 EDT, [place], 2 sprays Nares, Both Daily in AM,x30 [...] 06/06/21 21:01:00 EST, [facility], [facility] patch, 0 Refills, Maintenance, 06/12/21 21:45:00 EST, [facility]/pharmacy #[id number], Partial fill upon patient req... Start Date: 06/12/21 Status: Orderedlosartan 50 mg oral tablet 50 mg, 1, tablet, By Mouth, Daily, # 30 tablet, Refills 5, Tot. Refills 5, Maintenance, 04/06/21 15:22:00 EST, Route to Pharmacy Electronically, [facility]/pharmacy #[id number], 150, cm, 03/23/21 13:56:00 EST, Height Start Date: 04/06/21 Status: OrderedMiraLax oral powder for reconstitution = 17 Gm, By Mouth, Daily, dissolve in water before taking, # 255 Gm, 0 Refills, Maintenance, 07/02/21 22:10:00 EDT, REC Powder, [facility]/pharmacy #[id number], Partial fill [...] Maintenance, :03:26 EDT, Route to Pharmacy Electronically, [id number], [facility]/pharmacy #[id number] Start Date: 09/28/18 Stop Date: 09/23/19 Status: OrderedVitamin C 500 mg oral tablet 1 tablet = 500 mg, By Mouth, Daily, # 90 tablet, 0 Refills, Maintenance, 07/02/21 15:01:00 EDT, Tablet, [facility]/pharmacy #[id number], Partial fill [...] 0 Refills, Maintenance, 07/02/21 15:09:00 EDT, Capsule, [facility]/pharmacy #[id number], Partial fill [...] Date: 06/11/21 Status: Ordered Problem List Condition Confirmation Course Effective Dates Status Health I nformant Status Allergic rhinitis Confirmed Active Asthma Confirmed Active Breast pain Confirmed Active Chronic low back pain Confirmed Active H/O vitamin D Confirmed Active deficiency Hypertension Confirmed Active Iron deficiency Confirmed Active anemia1 Lipoma of arm Confirmed Active Obesity Confirmed Active Knee osteoarthritis Confirmed Active Severe obesity Confirmed Active 1heavy periods Social History Social History Type Response Smoking Status Current some day smoker; Typ e: Cigarettes; Previous treatment: None; Interested in cessation: Yes; Tobacco use times per day: 3; Number of years: 30; Started at age: 16; entered on: 10/03/17 Sex Female Patient Care team information PersonnelName: Timo Srinivasan MD, Gary Disla Address: Address: [address] [place] [address] [place], [place] [address]
--- OUTSIDE RECORDS SUMMARY | 2022-02-01 23:49 | XMS_ITS | Continuity of Care Document ---
:1970 Author Organization [facility] Address [address] [place] [id number]- Care Team Providers Name Role Phone Timo Srinivasan MD, Gary Disla Primary Care Physician [facility]): [facility] - 12/05/21 [facility] [address] [place] [id number] Attending Physician: Sanjana Green Admitting Physician: AdmSanjana sevilla Referring Physician: AdmtrSanjana Allergies, Adverse Reactions, Alerts No Known Allergies Immunizations Given and Recorded Vaccine Date Status Refusal Reason influenza virus vaccine, inactivated 02/19/19 Given influenza virus vaccine, inactivated1 01/10/17 Given influenza virus vaccine, inactivated 05/02/15 Given pneumococcal 23-valent vaccine 10/03/17 Given tetanus/diphtheria/pertussis, acel(Tdap) 10/03/17 Given Influenza Inactive (IM) (oldterm)2 12/18/08 Given Influenza Inactive (IM) (oldterm)3 03/25/08 Given Tet/Diphth/Acel, Pertussis (oldterm)4 03/25/08 Given 1Result Comment: [01/10/2017] [id number] Note: VIS GIVEN 11/19/083Admin Note: vis [id number] Note: vis given Medications acetaminophen 325 mg oral tablet 650 mg, 2, tablet, By Mouth, 4 times a day, PRN, # 16 tablet, Refills 0, Tot. Refills 0, Maintenance, as needed for pain, 06/12/21 21:45:00 EST, Route to Pharmacy Electronically, [facility]/pharmacy #[id number], Partial fill upon patient request if the prescriptio... Start Date: 06/12/21 Status: Orderedacetaminophen 650 mg oral tablet, extended release 1 tablet = 650 mg, By Mouth, Every 8 hours, PRN as needed for pain, # 60 tablet, 0 Refills, Maintenance, 06/06/21 21:01:00 EST, ER Tablet, [facility]/pharmacy #[id number], Partial fill upon patient request [...] 0 Refills, Maintenance, 03/03/20 18:10:00 EST, Tablet, [facility]/pharmacy #[id number], 150, cm, 02/21/20 9:34:00 EST, Height, 96, kg, 10/14/18 15:53:00 EDT, Dry Weight Start Date: 03/03/20 Status: Orderedchlorthalidone 25 mg oral tablet 25 mg, 1, tablet, By Mouth, Daily, Need labwork drawn before refills able to be given, # 30 tablet, Refills 5, Tot. Refills 5, Maintenance, 04/06/21 15:22:00 EST, [id number], 150, cm, 03/23/21 13:56:00 EST, He... [...] 0 Refills, Maintenance, 06/03/21 15:21:00 EST, Gel, [facility]/pharmacy #[id number], 150, cm, 06/03/21 13:32:00 EST, Height Start Date: 06/03/21 Stop Date: 06/17/21 Status: Ordereddocusate sodium 100 mg oral capsule 100 mg, 1, capsule, By Mouth, 2 times a day, PRN, # 50 capsule, Refills 6, Tot. Refills 6, Maintenance, for constipation, 09/21/18 9:49:50 EDT, Route to Pharmacy Electronically, [id number], [facility]/pharmacy #[id number] Start Date: 09/21/18 Status: Orderedergocalciferol 32720 iu oral capsule 50,000 International_Units, 1, capsule, By Mouth, Every week, take with oily food or milk, # 13 capsule, Refills 0, Tot. Refills 0, Maintenance, 01/18/19 15:18:55 EDT, Route to Pharmacy Electronically, [id number], [facility]/pharmac... Start Date: 01/18/19 Stop Date: 04/18/19 Status: Orderedfamotidine 20 mg oral tablet 20 mg, 1, tablet, By Mouth, 2 times a day, # 60 tablet, Refills 0, Tot. Refills 0, Maintenance, 09/16/21 15:39:00 EDT, Route to Pharmacy Electronically, [facility]/pharmacy #[id number], Partial fill upon patient request if the prescription is for a schedule II opi... Start Date: 09/16/21 Status: Orderedferrous sulfate 325 mg oral enteric coated tablet 325 mg, 1, tablet, By Mouth, Daily, # 45 tablet, Refills 3, Tot. Refills 3, Maintenance, 07/02/21 15:01:00 EDT, Route to Pharmacy Electronically, [facility]/pharmacy #[id number], Partial fill upon patient request if the prescription is for a schedule II opioid jarrett... Start Date: 07/02/21 Status: OrderedFlonase 50 mcg/inh nasal spray 2 sprays, Nares, Both, Daily in AM, # 16 Gm, 2 Refills, Maintenance, 09/21/18 9:51:40 EDT, [place], 2 sprays Nares, Both Daily in AM,x30 days Start Date: 09/21/18 Stop Date: 12/20/18 Status: OrderedFLUoxetine 20 mg oral capsule 20 mg, 1, capsule, By Mouth, Daily, # 90 capsule, Refills 0, Tot. Refills 0, Maintenance, 02/26/21 15:21:00 EST, Route to Pharmacy Electronically, [facility]/pharmacy #[id number], Partial fill upon patient request [...] 06/06/21 21:01:00 EST, Route to Pharmacy Electronically, [facility]/pharmacy #[id number], Partial fill upon patient request if the prescription is for a schedule II op... Start Date: 06/06/21 Status: OrderedLidoderm 5% film 1 patch, Topically, Daily, remove patches after 12 hours and leave off for 12 hours before replacing. You may apply 1-2 patches to the area., # 30 patch, 0 Refills, Maintenance, 06/12/21 21:45:00 EST, [facility]/pharmacy #[id number], Partial fill upon patient req... Start Date: 06/12/21 Status: Orderedlosartan 50 mg oral tablet 50 mg, 1, tablet, By Mouth, Daily, # 30 tablet, Refills 5, Tot. Refills 5, Maintenance, 04/06/21 15:22:00 EST, Route to Pharmacy Electronically, [facility]/pharmacy #[id number], 150, cm, 03/23/21 13:56:00 EST, Height Start Date: 04/06/21 Status: OrderedMiraLax oral powder for reconstitution = 17 Gm, By Mouth, Daily, dissolve in water before taking, # 255 Gm, 0 Refills, Maintenance, 07/02/21 22:10:00 EDT, REC Powder, [facility]/pharmacy #[id number], Partial fill upon patient request if the prescriptionis for a schedule II opioid drug., 17 Gm By Mouth... Start Date: 07/02/21 Status: Orderednaproxen 250 mg oral tablet See Instructions, # 60 tablet, TAKE 1 TABLET BY MOUTH TWICE A DAY, [facility]/pharmacy #[id number] Start Date: 01/01/19 Status: OrderedProAir HFA 90 mcg/inh inhalation aerosol with adapter 2, puffs, Inhalation, 4 times a day, PRN, # 2 each, Refills 3, Tot. Refills 3, Maintenance, :03:26 EDT, Route to Pharmacy Electronically, [id number], [facility]/pharmacy #[id number] Start Date: 09/28/18 Stop Date: 09/23/19 Status: OrderedVitamin C 500 mg oral tablet 1 tablet = 500 mg, By Mouth, Daily, # 90 tablet, 0 Refills, Maintenance, 07/02/21 15:01:00 EDT, Tablet, [facility]/pharmacy #[id number], Partial fill upon patient request [...] 0 Refills, Maintenance, 07/02/21 15:09:00 EDT, Capsule, [facility]/pharmacy #[id number], Partial fill upon patient request [...] age: 16; entered on: 10/03/17 Sex Female Care Team PersonnelName: Gary Lainez MD Address: [address] [place] [address]
--- OUTSIDE RECORDS SUMMARY | 2022-02-01 23:49 | XMS_ITS | Continuity of Care Document ---
:[address] [facility] Address [address] [place] [phone]- Care Team Providers Name Role Phone Carlos Michelle DO Primary Care Physician [facility]): 08[facility]21 - 09/19/21 [facility] [address] [place] [id number]- Attending Physician: Sanjana Green Admitting Physician: Sanjana Green Referring Physician: AdmSanjana sevilla Allergies, Adverse Reactions, Alerts No Known Allergies Immunizations Given and Recorded Vaccine Date Status Refusal Reason influenza virus vaccine, inactivated 02/19/19 Given influenza virus vaccine, inactivated1 01/10/17 Given influenza virus vaccine, inactivated 05/02/15 Given pneumococcal 23-valent vaccine 10/03/17 Given tetanus/diphtheria/pertussis, acel(Tdap) 10/03/17 Given Influenza Inactive (IM) (oldterm)2 12/18/08 Given Influenza Inactive (IM) (oldterm)3 03/25/08 Given Tet/Diphth/Acel, Pertussis (oldterm)4 03/25/08 Given 1Result Comment: [01/10/2017] [id number] Note: VIS GIVEN 11/19/083Admin Note: vis [id number] Note: vis given Medications acetaminophen 325 mg oral tablet 650 mg, 2, tablet, By Mouth, 4 times a day, PRN, # 16 tablet, Refills 0, Tot. Refills 0, Maintenance, as needed for pain, 06/12/21 21:45:00 EST, Route to Pharmacy Electronically, [facility]/pharmacy #[id number], Partial fill upon patient request if the prescriptio... Start Date: 06/12/21 Status: Orderedacetaminophen 650 mg oral tablet, extended release 1 tablet = 650 mg, By Mouth, Every 8 hours, PRN as needed for pain, # 60 tablet, 0 Refills, Maintenance, 06/06/21 21:01:00 EST, [id number] Partial fill upon patient request if [...] 0 Refills, Maintenance, 03/03/20 18:10:00 EST, Tablet, [id number], 150, cm, 02/21/20 9:34:00 EST, Height, 96, kg, 10/14/18 15:53:00 EDT, Dry Weight Start Date: 03/03/20 Status: Orderedchlorthalidone 25 mg oral tablet 25 mg, 1, tablet, By Mouth, Daily, Need labwork drawn before refills able to be given, # 30 tablet, Refills 5, Tot. Refills 5, Maintenance, 04/06/21 15:22:00 EST, [id number], 150, cm, 03/23/21 13:56:00 EST, He... [...] 0 Refills, Maintenance, 06/03/21 15:21:00 EST, Gel, [facility]/pharmacy #[id number], 150, cm, 06/03/21 13:32:00 EST, Height Start Date: 06/03/21 Stop Date: 06/17/21 Status: Ordereddocusate sodium 100 mg oral capsule 100 mg, 1, capsule, By Mouth, 2 times a day, PRN, # 50 capsule, Refills 6, Tot. Refills 6, Maintenance, for constipation, 09/21/18 9:49:50 EDT, Route to Pharmacy Electronically, [id number], [facility]/pharmacy #[id number] Start Date: 09/21/18 Status: Orderedergocalciferol 79043 iu oral capsule 50,000 International_Units, 1, capsule, By Mouth, Every week, take with oily food or milk, # 13 capsule, Refills 0, Tot. Refills 0, Maintenance, 01/18/19 15:18:55 EDT, Route to Pharmacy Electronically, [id number], [facility]/pharmac... Start Date: 01/18/19 Stop Date: 04/18/19 Status: Orderedfamotidine 20 mg oral tablet 20 mg, 1, tablet, By Mouth, 2 times a day, # 60 tablet, Refills 0, Tot. Refills 0, Maintenance, 09/16/21 15:39:00 EDT, Route to Pharmacy Electronically, [facility]/pharmacy #[id number], Partial fill upon patient request if the prescription is for a schedule II opi... Start Date: 09/16/21 Status: Orderedferrous sulfate 325 mg oral enteric coated tablet 325 mg, 1, tablet, By Mouth, Daily, # 45 tablet, Refills 3, Tot. Refills 3, Maintenance, 07/02/21 15:01:00 EDT, Route to Pharmacy Electronically, [facility]/pharmacy #[id number], Partial fill upon patient request if the prescription is for a schedule II opioid jarrett... Start Date: 07/02/21 Status: OrderedFlonase 50 mcg/inh nasal spray 2 sprays, Nares, Both, Daily in AM, # 16 Gm, 2 Refills, Maintenance, 09/21/18 9:51:40 EDT, [place], 2 sprays Nares, Both Daily in AM,x30 days Start Date: 09/21/18 Stop Date: 12/20/18 Status: OrderedFLUoxetine 20 mg oral capsule 20 mg, 1, capsule, By Mouth, Daily, # 90 capsule, Refills 0, Tot. Refills 0, Maintenance, 02/26/21 15:21:00 EST, Route to Pharmacy Electronically, [facility]/pharmacy #[id number], Partial fill upon patient request [...] 06/06/21 21:01:00 EST, Route to Pharmacy Electronically, [facility]/pharmacy #[id number], Partial fill upon patient request if the prescription is for a schedule II op... Start Date: 06/06/21 Status: OrderedLidoderm 5% film 1 patch, Topically, Daily, remove patches after 12 hours and leave off for 12 hours before replacing. You may apply 1-2 patches to the area., # 30 patch, 0 Refills, Maintenance, 06/12/21 21:45:00 EST, [facility]/pharmacy #[id number], Partial fill upon patient req... Start Date: 06/12/21 Status: Orderedlosartan 50 mg oral tablet 50 mg, 1, tablet, By Mouth, Daily, # 30 tablet, Refills 5, Tot. Refills 5, Maintenance, 04/06/21 15:22:00 EST, Route to Pharmacy Electronically, [facility]/pharmacy #[id number], 150, cm, 03/23/21 13:56:00 EST, Height Start Date: 04/06/21 Status: Orderedmelatonin 3 mg oral tablet 2 tablet = 6 mg, By Mouth, Daily at bedtime, PRN for insomnia, # 60 tablet, 1 Refills, Acute 09/23/21 15:07:00 EDT, 07/24/21 15:07:00 EDT, Tablet, [facility] 150, cm, 07/16/21 13:22:00EDT, Height, 96.8, kg, 06/12/21 22:20:00 EST, Dry... Start Date: 07/24/21 Stop Date: 09/23/21 Status: OrderedMiraLax oral powder for reconstitution = 17 Gm, By Mouth, Daily, dissolve in water before taking, # 255 Gm, 0 Refills, Maintenance, 07/02/21 22:10:00 EDT, REC Powder, [facility]/pharmacy #[id number], Partial fill upon patient request if the prescriptionis for a schedule II opioid drug., 17 Gm By Mouth... Start Date: 07/02/21 Status: Orderednaproxen 250 mg oral tablet See Instructions, # 60 tablet, TAKE 1 TABLET BY MOUTH TWICE A DAY, [facility]/pharmacy #[id number] Start Date: 01/01/19 Status: OrderedProAir HFA 90 mcg/inh inhalation aerosol with adapter 2, puffs, Inhalation, 4 times a day, PRN, # 2 each, Refills 3, Tot. Refills 3, Maintenance, :03:26 EDT, Route to Pharmacy Electronically, [id number], [facility]/pharmacy #[id number] Start Date: 09/28/18 Stop Date: 09/23/19 Status: OrderedVitamin C 500 mg oral tablet 1 tablet = 500 mg, By Mouth, Daily, # 90 tablet, 0 Refills, Maintenance, 07/02/21 15:01:00 EDT, Tablet, [facility]/pharmacy #[id number], Partial fill upon patient request if the prescription is for a schedule II opioid drug., 150, cm, 07/02/21 14:28:00 EDT, Height... Start Date: 07/02/21 Status: OrderedVitamin C 500 mg oral tablet 1 tablet = 500 mg, By Mouth, Daily, # 30 tablet, 3 Refills, Maintenance, 01/18/19 15:20:18 EDT, Tablet Start Date: 01/18/19 Stop Date: 2/7/20 Status: OrderedVitamin D3 50,000 intl units oral capsule 1 capsule = 1,250 mcg, By Mouth, Every week, # 6 capsule, 0 Refills, Maintenance, 07/02/21 15:09:00 EDT, Capsule, [facility]/pharmacy #[id number], Partial fill upon patient request if the [...]
--- OUTSIDE RECORDS SUMMARY | 2022-02-01 23:49 | XMS_ITS | Continuity of Care Document ---
:1970 Author Organization [facility] Address [address] [place] [id number]- Care Team Providers Name Role Phone Carlos Michelle DO Primary Care Physician [facility]): [facility]21 - 09/12/21 [facility] [address] [place] [id number] Attending Physician: Nain Umaña MD Admitting Physician: Nain Umaña MD Allergies, Adverse Reactions, Alerts No Known [...] Pertussis (oldterm)4 03/25/08 Given 1Result Comment: [01/10/2017] [id number] Note: VIS GIVEN 11/19/083Admin Note: vis [id number] Note: vis given Medications acetaminophen 325 mg oral tablet 650 mg, 2, tablet, By Mouth, 4 times a day, PRN, # 16 tablet, Refills 0, Tot. Refills 0, Maintenance, as needed for pain, 06/12/21 21:45:00 EST, Route to Pharmacy Electronically, [facility]/pharmacy #[id number], Partial fill upon patient request if the prescriptio... Start Date: 06/12/21 Status: Orderedacetaminophen 650 mg oral tablet, extended release 1 tablet = 650 mg, By Mouth, Every 8 hours, PRN as needed for pain, # 60 tablet, 0 Refills, Maintenance, 06/06/21 21:01:00 EST, [id number] fill upon patient request if [...] 0 Refills, Maintenance, 03/03/20 18:10:00 EST, Tablet, [id number], 150, cm, 02/21/20 9:34:00 EST, Height, 96, kg, 10/14/18 15:53:00 EDT, Dry Weight Start Date: 03/03/20 Status: Orderedchlorthalidone 25 mg oral tablet 25 mg, 1, tablet, By Mouth, Daily, Need labwork drawn before refills able to be given, # 30 tablet, Refills 5, Tot. Refills 5, Maintenance, 04/06/21 15:22:00 EST, [facility], [id number], 150, cm, 03/23/21 13:56:00 EST, He... [...] 0 Refills, Maintenance, 06/03/21 15:21:00 EST, Gel, [facility]/pharmacy #[id number], 150, cm, 06/03/21 13:32:00 EST, Height Start Date: 06/03/21 Stop Date: 06/17/21 Status: Ordereddocusate sodium 100 mg oral capsule 100 mg, 1, capsule, By Mouth, 2 times a day, PRN, # 50 capsule, Refills 6, Tot. Refills 6, Maintenance, for constipation, 09/21/18 9:49:50 EDT, Route to Pharmacy Electronically, [id number], [facility]/pharmacy #[id number] Start Date: 09/21/18 Status: Orderedergocalciferol 97059 iu oral capsule 50,000 International_Units, 1, capsule, By Mouth, Every week, take with oily food or milk, # 13 capsule, Refills 0, Tot. Refills 0, Maintenance, 01/18/19 15:18:55 EDT, Route to Pharmacy Electronically, [id number], [facility]/pharmac... Start Date: 01/18/19 Stop Date: 04/18/19 Status: Orderedfamotidine 20 mg oral tablet 20 mg, 1, tablet, By Mouth, 2 times a day, # 60 tablet, Refills 0, Tot. Refills 0, Maintenance, 07/02/21 14:53:00 EDT, Route to Pharmacy Electronically, [facility]/pharmacy #[id number], Partial fill upon patient request if the prescription is for a schedule II opi... Start Date: 07/02/21 Status: Orderedferrous sulfate 325 mg oral enteric coated tablet 325 mg, 1, tablet, By Mouth, Daily, # 45 tablet, Refills 3, Tot. Refills 3, Maintenance, 07/02/21 15:01:00 EDT, Route to Pharmacy Electronically, [facility]/pharmacy #[id number], Partial fill upon patient request if the prescription is for a schedule II opioid jarrett... Start Date: 07/02/21 Status: OrderedFlonase 50 mcg/inh nasal spray 2 sprays, Nares, Both, Daily in AM, # 16 Gm, 2 Refills, Maintenance, 09/21/18 9:51:40 EDT, [place], 2 sprays Nares, Both Daily in AM,x30 days Start Date: 09/21/18 Stop Date: 12/20/18 Status: OrderedFLUoxetine 20 mg oral capsule 20 mg, 1, capsule, By Mouth, Daily, # 90 capsule, Refills 0, Tot. Refills 0, Maintenance, 02/26/21 15:21:00 EST, Route to Pharmacy Electronically, [facility]/pharmacy #[id number], Partial fill upon patient request if [...] 06/06/21 21:01:00 EST, Route to Pharmacy Electronically, [facility]/pharmacy #[id number], Partial fill upon patient request if the prescription is for a schedule II op... Start Date: 06/06/21 Status: OrderedLidoderm 5% film 1 patch, Topically, Daily, remove patches after 12 hours and leave off for 12 hours before replacing. You may apply 1-2 patches to the area., # 30 patch, 0 Refills, Maintenance, 06/12/21 21:45:00 EST, [facility]/pharmacy #[id number], Partial fill upon patient req... Start Date: 06/12/21 Status: Orderedlosartan 50 mg oral tablet 50 mg, 1, tablet, By Mouth, Daily, # 30 tablet, Refills 5, Tot. Refills 5, Maintenance, 04/06/21 15:22:00 EST, Route to Pharmacy Electronically, [facility]/pharmacy #[id number], 150, cm, 03/23/21 13:56:00 EST, Height Start Date: 04/06/21 Status: Orderedmelatonin 3 mg oral tablet 2 tablet = 6 mg, By Mouth, Daily at bedtime, PRN for insomnia, # 60 tablet, 1 Refills, Acute 09/23/21 15:07:00 EDT, 07/24/21 15:07:00 EDT, Tablet, [facility] 150, cm, 07/16/21 13:22:00EDT, Height, 96.8, kg, 06/12/21 22:20:00 EST, Dry... Start Date: 07/24/21 Stop Date: 09/23/21 Status: OrderedMiraLax oral powder for reconstitution = 17 Gm, By Mouth, Daily, dissolve in water before taking, # 255 Gm, 0 Refills, Maintenance, 07/02/21 22:10:00 EDT, REC Powder, [facility]/pharmacy #[id number], Partial fill upon patient request if the prescriptionis for a schedule II opioid drug., 17 Gm By Mouth... Start Date: 07/02/21 Status: Orderednaproxen 250 mg oral tablet See Instructions, # 60 tablet, TAKE 1 TABLET BY MOUTH TWICE A DAY, [facility]/pharmacy #[id number] Start Date: 01/01/19 Status: OrderedProAir HFA 90 mcg/inh inhalation aerosol with adapter 2, puffs, Inhalation, 4 times a day, PRN, # 2 each, Refills 3, Tot. Refills 3, Maintenance, :03:26 EDT, Route to Pharmacy Electronically, [id number], [facility]/pharmacy #[id number] Start Date: 09/28/18 Stop Date: 09/23/19 Status: OrderedVitamin C 500 mg oral tablet 1 tablet = 500 mg, By Mouth, Daily, # 90 tablet, 0 Refills, Maintenance, 07/02/21 15:01:00 EDT, Tablet, [facility]/pharmacy #[id number], Partial fill upon patient request if [...] 0 Refills, Maintenance, 07/02/21 15:09:00 EDT, Capsule, [facility]/pharmacy #[id number], Partial fill upon patient request if the [...]
--- OUTSIDE RECORDS SUMMARY | 2022-02-01 23:50 | XMS_ITS | Continuity of Care Document ---
:1970 Author Organization [facility] Address [address] [place] [phone]- Care Team Providers Name Role Phone Timo Srinivasan MD, Gary Disla Primary Care Physician Encounter [facility] [place] Date(s): 09/29/21 - 12/05/21 [facility] [address] [place] [id number] [place] Attending Physician: Not on Staff, Attending MD Referring Physician: Carlos Michelle DO Allergies, Adverse Reactions, Alerts No Known [...] Pertussis (oldterm)4 03/25/08 Given 1Result Comment: [01/10/2017] [id number] Note: VIS GIVEN 11/19/083Admin Note: vis [id number] Note: vis given Medications acetaminophen 325 mg oral tablet 650 mg, 2, tablet, By Mouth, 4 times a day, PRN, # 16 tablet, Refills 0, Tot. Refills 0, Maintenance, as needed for pain, 06/12/21 21:45:00 EST, Route to Pharmacy Electronically, [facility]/pharmacy #[id number], Partial fill upon patient request if the prescriptio... Start Date: 06/12/21 Status: Orderedacetaminophen 650 mg oral tablet, extended release 1 tablet = 650 mg, By Mouth, Every 8 hours, PRN as needed for pain, # 60 tablet, 0 Refills, Maintenance, 06/06/21 21:01:00 EST, ER Tablet, [facility]/pharmacy #[id number], Partial fill upon patient request [...] 0 Refills, Maintenance, 03/03/20 18:10:00 EST, Tablet, [facility]/pharmacy #[id number], 150, cm, 02/21/20 9:34:00 EST, Height, 96, kg, 10/14/18 15:53:00 EDT, Dry Weight Start Date: 03/03/20 Status: Orderedchlorthalidone 25 mg oral tablet 25 mg, 1, tablet, By Mouth, Daily, Need labwork drawn before refills able to be given, # 30 tablet, Refills 5, Tot. Refills 5, Maintenance, 04/06/21 15:22:00 EST, Route to Pharmacy Electronically, [facility]/pharmacy #[id number], 150, cm, 03/23/21 13:56:00 EST, [...] 0 Refills, Maintenance, 06/03/21 15:21:00 EST, Gel, [facility]/pharmacy #[id number], 150, cm, 06/03/21 13:32:00 EST, Height Start Date: 06/03/21 Stop Date: 06/17/21 Status: Ordereddocusate sodium 100 mg oral capsule 100 mg, 1, capsule, By Mouth, 2 times a day, PRN, # 50 capsule, Refills 6, Tot. Refills 6, Maintenance, for constipation, 09/21/18 9:49:50 EDT, Route to Pharmacy Electronically, [id number], [facility]/pharmacy #[id number] Start Date: 09/21/18 Status: Orderedergocalciferol 56099 iu oral capsule 50,000 International_Units, 1, capsule, By Mouth, Every week, take with oily food or milk, # 13 capsule, Refills 0, Tot. Refills 0, Maintenance, 01/18/19 15:18:55 EDT, Route to Pharmacy Electronically, [id number], [facility]/pharmac... Start Date: 01/18/19 Stop Date: 04/18/19 Status: Orderedfamotidine 20 mg oral tablet 20 mg, 1, tablet, By Mouth, 2 times a day, # 60 tablet, Refills 0, Tot. Refills 0, Maintenance, 09/16/21 15:39:00 EDT, Route to Pharmacy Electronically, [facility]/pharmacy #[id number], Partial fill upon patient request if the prescription is for a schedule II opi... Start Date: 09/16/21 Status: Orderedferrous sulfate 325 mg oral enteric coated tablet 325 mg, 1, tablet, By Mouth, Daily, # 45 tablet, Refills 3, Tot. Refills 3, Maintenance, 07/02/21 15:01:00 EDT, Route to Pharmacy Electronically, [facility]/pharmacy #[id number], Partial fill upon patient request if the prescription is for a schedule II opioid jarrett... Start Date: 07/02/21 Status: OrderedFlonase 50 mcg/inh nasal spray 2 sprays, Nares, Both, Daily in AM, # 16 Gm, 2 Refills, Maintenance, 09/21/18 9:51:40 EDT, [place], 2 sprays Nares, Both Daily in AM,x30 days Start Date: 09/21/18 Stop Date: 12/20/18 Status: OrderedFLUoxetine 20 mg oral capsule 20 mg, 1, capsule, By Mouth, Daily, # 90 capsule, Refills 0, Tot. Refills 0, Maintenance, 02/26/21 15:21:00 EST, Route to Pharmacy Electronically, [facility]/pharmacy #[id number], Partial fill upon patient request [...] 06/06/21 21:01:00 EST, Route to Pharmacy Electronically, [facility]/pharmacy #[id number], Partial fill upon patient request if the prescription is for a schedule II op... Start Date: 06/06/21 Status: OrderedLidoderm 5% film 1 patch, Topically, Daily, remove patches after 12 hours and leave off for 12 hours before replacing. You may apply 1-2 patches to the area., # 30 patch, 0 Refills, Maintenance, 06/12/21 21:45:00 EST, [facility]/pharmacy #[id number], Partial fill upon patient req... Start Date: 06/12/21 Status: Orderedlosartan 50 mg oral tablet 50 mg, 1, tablet, By Mouth, Daily, # 30 tablet, Refills 5, Tot. Refills 5, Maintenance, 04/06/21 15:22:00 EST, Route to Pharmacy Electronically, [facility]/pharmacy #[id number], 150, cm, 03/23/21 13:56:00 EST, Height Start Date: 04/06/21 Status: OrderedMiraLax oral powder for reconstitution = 17 Gm, By Mouth, Daily, dissolve in water before taking, # 255 Gm, 0 Refills, Maintenance, 07/02/21 22:10:00 EDT, REC Powder, [facility]/pharmacy #[id number], Partial fill upon patient request if the prescriptionis for a schedule II opioid drug., 17 Gm By Mouth... Start Date: 07/02/21 Status: Orderednaproxen 250 mg oral tablet See Instructions, # 60 tablet, TAKE 1 TABLET BY MOUTH TWICE A DAY, [facility]/pharmacy #[id number] Start Date: 01/01/19 Status: OrderedProAir HFA 90 mcg/inh inhalation aerosol with adapter 2, puffs, Inhalation, 4 times a day, PRN, # 2 each, Refills 3, Tot. Refills 3, Maintenance, :03:26 EDT, Route to Pharmacy Electronically, [id number], [facility]/pharmacy #[id number] Start Date: 09/28/18 Stop Date: 09/23/19 Status: OrderedVitamin C 500 mg oral tablet 1 tablet = 500 mg, By Mouth, Daily, # 90 tablet, 0 Refills, Maintenance, 07/02/21 15:01:00 EDT, Tablet, [facility]/pharmacy #[id number], Partial fill upon patient request [...] 0 Refills, Maintenance, 07/02/21 15:09:00 EDT, Capsule, [facility]/pharmacy #[id number], Partial fill upon patient request [...] Care Team PersonnelName: Gary Lainez MD Address: [address] [place] [address]
--- OUTSIDE RECORDS SUMMARY | 2022-02-01 23:50 | XMS_ITS | Continuity of Care Document ---
:1970 Author Organization [facility] Address [address] [place] [phone]- Care Team Providers Name Role Phone Carlos Michelle DO Primary Care Physician Encounter [facility] [place] Date(s): 06/22/21 - 07/22/21 [facility] [address] [place] [id number] Attending Physician: Not on Staff, Attending MD [...] Pertussis (oldterm)4 03/25/08 Given 1Result Comment: [01/10/2017] [id number] Note: VIS GIVEN 11/19/083Admin Note: vis [id number] Note: vis given Medications acetaminophen 325 mg oral tablet 650 mg, 2, tablet, By Mouth, 4 times a day, PRN, # 16 tablet, Refills 0, Tot. Refills 0, Maintenance, as needed for pain, 06/12/21 21:45:00 EST, Route to Pharmacy Electronically, [facility]/pharmacy #[id number], Partial fill upon patient request if the prescriptio... Start Date: 06/12/21 Status: Orderedacetaminophen 650 mg oral tablet, extended release 1 tablet = 650 mg, By Mouth, Every 8 hours, PRN as needed for pain, # 60 tablet, 0 Refills, Maintenance, 06/06/21 21:01:00 EST, ER Tablet, [facility]/pharmacy #[id number], Partial fill upon patient request if [...] 0 Refills, Maintenance, 03/03/20 18:10:00 EST, Tablet, [facility]/pharmacy #[id number], 150, cm, 02/21/20 9:34:00 EST, Height, 96, kg, 10/14/18 15:53:00 EDT, Dry Weight Start Date: 03/03/20 Status: Orderedchlorthalidone 25 mg oral tablet 25 mg, 1, tablet, By Mouth, Daily, Need labwork drawn before refills able to be given, # 30 tablet, Refills 5, Tot. Refills 5, Maintenance, 04/06/21 15:22:00 EST, Route to Pharmacy Electronically, [facility]/pharmacy #[id number], 150, cm, 03/23/21 13:56:00 EST, He... [...] 0 Refills, Maintenance, 06/03/21 15:21:00 EST, Gel, [facility]/pharmacy #[id number], 150, cm, 06/03/21 13:32:00 EST, Height Start Date: 06/03/21 Stop Date: 06/17/21 Status: Ordereddocusate sodium 100 mg oral capsule 100 mg, 1, capsule, By Mouth, 2 times a day, PRN, # 50 capsule, Refills 6, Tot. Refills 6, Maintenance, for constipation, 09/21/18 9:49:50 EDT, Route to Pharmacy Electronically, [id number], [facility]/pharmacy #[id number] Start Date: 09/21/18 Status: Orderedergocalciferol 53862 iu oral capsule 50,000 International_Units, 1, capsule, By Mouth, Every week, take with oily food or milk, # 13 capsule, Refills 0, Tot. Refills 0, Maintenance, 01/18/19 15:18:55 EDT, Route to Pharmacy Electronically, [id number], [facility]/pharmac... Start Date: 01/18/19 Stop Date: 04/18/19 Status: Orderedfamotidine 20 mg oral tablet 20 mg, 1, tablet, By Mouth, 2 times a day, # 60 tablet, Refills 0, Tot. Refills 0, Maintenance, 07/02/21 14:53:00 EDT, Route to Pharmacy Electronically, [facility]/pharmacy #[id number], Partial fill upon patient request if [...] Gm, 2 Refills, Maintenance, 09/21/18 9:51:40 EDT, [place], 2 sprays Nares, Both Daily in AM,x30 days Start Date: 09/21/18 Stop Date: 12/20/18 Status: OrderedFLUoxetine 20 mg oral capsule 20 mg, 1, capsule, By Mouth, Daily, # 90 capsule, Refills 0, Tot. Refills 0, Maintenance, 02/26/21 15:21:00 EST, Route to Pharmacy Electronically, [facility]/pharmacy #[id number], Partial fill upon patient request if [...] 06/06/21 21:01:00 EST, Route to Pharmacy Electronically, [facility]/pharmacy #[id number], Partial fill upon patient request if the prescription is for a schedule II op... Start Date: 06/06/21 Status: OrderedLidoderm 5% film 1 patch, Topically, Daily, remove patches after 12 hours and leave off for 12 hours before replacing. You may apply 1-2 patches to the area., # 30 patch, 0 Refills, Maintenance, 06/12/21 21:45:00 EST, [facility]/pharmacy #[id number], Partial fill upon patient req... Start Date: 06/12/21 Status: Orderedlosartan 50 mg oral tablet 50 mg, 1, tablet, By Mouth, Daily, # 30 tablet, Refills 5, Tot. Refills 5, Maintenance, 04/06/21 15:22:00 EST, Route to Pharmacy Electronically, [facility]/pharmacy #[id number], 150, cm, 03/23/21 13:56:00 EST, Height Start Date: 04/06/21 Status: OrderedMiraLax oral powder for reconstitution = 17 Gm, By Mouth, Daily, dissolve in water before taking, # 255 Gm, 0 Refills, Maintenance, 07/02/21 22:10:00 EDT, REC Powder, [facility]/pharmacy #[id number], Partial fill upon patient request if the prescriptionis for a schedule II opioid drug., 17 Gm By Mouth... Start Date: 07/02/21 Status: Orderednaproxen 250 mg oral tablet See Instructions, # 60 tablet, TAKE 1 TABLET BY MOUTH TWICE A DAY, [facility]/pharmacy #[id number] Start Date: 01/01/19 Status: OrderedProAir HFA 90 mcg/inh inhalation aerosol with adapter 2, puffs, Inhalation, 4 times a day, PRN, # 2 each, Refills 3, Tot. Refills 3, Maintenance, :03:26 EDT, Route to Pharmacy Electronically, [id number], [facility]/pharmacy #[id number] Start Date: 09/28/18 Stop Date: 09/23/19 Status: OrderedVitamin C 500 mg oral tablet 1 tablet = 500 mg, By Mouth, Daily, # 90 tablet, 0 Refills, Maintenance, 07/02/21 15:01:00 EDT, Tablet, [facility]/pharmacy #[id number], Partial fill upon patient request if [...] 0 Refills, Maintenance, 07/02/21 15:09:00 EDT, Capsule, [facility]/pharmacy #[id number], Partial fill upon patient request if [...]
--- OUTSIDE RECORDS SUMMARY | 2022-02-01 23:50 | XMS_ITS | Continuity of Care Document ---
:1970 Author Organization [facility] Address [address] [place] [phone]- Care Team Providers Name Role Phone Carlos Michelle DO Primary Care Physician Encounter [facility] [place] [place] Date(s): 06/16/21 - 07/22/21 [facility] [address] [place] [id number] Attending Physician: Not on Staff, Attending [...] Pertussis (oldterm)4 03/25/08 Given 1Result Comment: [01/10/2017] [id number] Note: VIS GIVEN 11/19/083Admin Note: vis [id number] Note: vis given Medications acetaminophen 325 mg oral tablet 650 mg, 2, tablet, By Mouth, 4 times a day, PRN, # 16 tablet, Refills 0, Tot. Refills 0, Maintenance, as needed for pain, 06/12/21 21:45:00 EST, Route to Pharmacy Electronically, [facility]/pharmacy #[id number], Partial fill upon patient request if the prescriptio... Start Date: 06/12/21 Status: Orderedacetaminophen 650 mg oral tablet, extended release 1 tablet = 650 mg, By Mouth, Every 8 hours, PRN as needed for pain, # 60 tablet, 0 Refills, Maintenance, 06/06/21 21:01:00 EST, ER Tablet, [facility]/pharmacy #[id number], Partial fill upon [...] 0 Refills, Maintenance, 03/03/20 18:10:00 EST, Tablet, [facility]/pharmacy #[id number], 150, cm, 02/21/20 9:34:00 EST, Height, 96, kg, 10/14/18 15:53:00 EDT, Dry Weight Start Date: 03/03/20 Status: Orderedchlorthalidone 25 mg oral tablet 25 mg, 1, tablet, By Mouth, Daily, Need labwork drawn before refills able to be given, # 30 tablet, Refills 5, Tot. Refills 5, Maintenance, 04/06/21 15:22:00 EST, Route to Pharmacy Electronically, [facility]/pharmacy #[id number], 150, cm, 03/23/21 [...] 0 Refills, Maintenance, 06/03/21 15:21:00 EST, Gel, [facility]/pharmacy #[id number], 150, cm, 06/03/21 13:32:00 EST, Height Start Date: 06/03/21 Stop Date: 06/17/21 Status: Ordereddocusate sodium 100 mg oral capsule 100 mg, 1, capsule, By Mouth, 2 times a day, PRN, # 50 capsule, Refills 6, Tot. Refills 6, Maintenance, for constipation, 09/21/18 9:49:50 EDT, Route to Pharmacy Electronically, [id number], [facility]/pharmacy #[id number] Start Date: 09/21/18 Status: Orderedergocalciferol 86498 iu oral capsule 50,000 International_Units, 1, capsule, By Mouth, Every week, take with oily food or milk, # 13 capsule, Refills 0, Tot. Refills 0, Maintenance, 01/18/19 15:18:55 EDT, Route to Pharmacy Electronically, [id number], [facility]/pharmac... Start Date: 01/18/19 Stop Date: 04/18/19 Status: Orderedfamotidine 20 mg oral tablet 20 mg, 1, tablet, By Mouth, 2 times a day, # 60 tablet, Refills 0, Tot. Refills 0, Maintenance, 07/02/21 14:53:00 EDT, Route to Pharmacy Electronically, [facility]/pharmacy #[id number], Partial fill upon patient request if the prescription is for a schedule II opi... Start Date: 07/02/21 Status: Orderedferrous sulfate 325 mg oral enteric coated tablet 325 mg, 1, tablet, By Mouth, Daily, # 45 tablet, Refills 3, Tot. Refills 3, Maintenance, 07/02/21 15:01:00 EDT, Route to Pharmacy Electronically, [facility]/pharmacy #[id number], Partial fill upon patient request if the prescription is for a schedule II opioid jarrett... Start Date: 07/02/21 Status: OrderedFlonase 50 mcg/inh nasal spray 2 sprays, Nares, Both, Daily in AM, # 16 Gm, 2 Refills, Maintenance, 09/21/18 9:51:40 EDT, [place], 2 sprays Nares, Both Daily in AM,x30 days Start Date: 09/21/18 Stop Date: 12/20/18 Status: OrderedFLUoxetine 20 mg oral capsule 20 mg, 1, capsule, By Mouth, Daily, # 90 capsule, Refills 0, Tot. Refills 0, Maintenance, 02/26/21 15:21:00 EST, Route to Pharmacy Electronically, [facility]/pharmacy #[id number], Partial fill upon [...] 06/06/21 21:01:00 EST, Route to Pharmacy Electronically, [facility]/pharmacy #[id number], Partial fill upon patient request if the prescription is for a schedule II op... Start Date: 06/06/21 Status: OrderedLidoderm 5% film 1 patch, Topically, Daily, remove patches after 12 hours and leave off for 12 hours before replacing. You may apply 1-2 patches to the area., # 30 patch, 0 Refills, Maintenance, 06/12/21 21:45:00 EST, [facility]/pharmacy #[id number], Partial fill upon patient req... Start Date: 06/12/21 Status: Orderedlosartan 50 mg oral tablet 50 mg, 1, tablet, By Mouth, Daily, # 30 tablet, Refills 5, Tot. Refills 5, Maintenance, 04/06/21 15:22:00 EST, Route to Pharmacy Electronically, [facility]/pharmacy #[id number], 150, cm, 03/23/21 13:56:00 EST, Height Start Date: 04/06/21 Status: OrderedMiraLax oral powder for reconstitution = 17 Gm, By Mouth, Daily, dissolve in water before taking, # 255 Gm, 0 Refills, Maintenance, 07/02/21 22:10:00 EDT, REC Powder, [facility]/pharmacy #[id number], Partial fill upon patient request if the prescriptionis for a schedule II opioid drug., 17 Gm By Mouth... Start Date: 07/02/21 Status: Orderednaproxen 250 mg oral tablet See Instructions, # 60 tablet, TAKE 1 TABLET BY MOUTH TWICE A DAY, [facility]/pharmacy #[id number] Start Date: 01/01/19 Status: OrderedProAir HFA 90 mcg/inh inhalation aerosol with adapter 2, puffs, Inhalation, 4 times a day, PRN, # 2 each, Refills 3, Tot. Refills 3, Maintenance, :03:26 EDT, Route to Pharmacy Electronically, [id number], [facility]/pharmacy #[id number] Start Date: 09/28/18 Stop Date: 09/23/19 Status: OrderedVitamin C 500 mg oral tablet 1 tablet = 500 mg, By Mouth, Daily, # 90 tablet, 0 Refills, Maintenance, 07/02/21 15:01:00 EDT, Tablet, [facility]/pharmacy #[id number], Partial fill upon [...] 0 Refills, Maintenance, 07/02/21 15:09:00 EDT, Capsule, [facility]/pharmacy #[id number], Partial fill upon [...]
--- OUTSIDE RECORDS SUMMARY | 2022-02-01 23:50 | XMS_ITS | Continuity of Care Document ---
:1970 Author Organization [facility] Address [address] [place] [phone]- Care Team Providers Name Role Phone Carlos Michelle DO Primary Care Physician Encounter [facility] [place] Date(s): 04/18/20 - 06/11/20 [facility] [address] [place] [id number] Attending Physician: Nain Umaña MD Admitting Physician: Nain Umaña MD Allergies, Adverse Reactions, Alerts Substance Reaction Severity [...] Pertussis (oldterm)4 03/25/08 Given 1Result Comment: [01/10/2017] [id number] Note: VIS GIVEN 11/19/083Admin Note: vis [id number] Note: vis given Medications betamethasone topical dipropionate 0.05% cream 1 application, Topically, Daily, # 45 Gm, 1 Refills, Maintenance, 03/30/18 16:19:01 EST, Cream, 1 application Topically Daily Start Date: 03/30/18 Status: Orderedcetirizine 10 mg oral tablet 1 tablet = 10 mg, By Mouth, Daily, # 30 tablet, 0 Refills, Maintenance, 03/03/20 18:10:00 EST, Tablet, [facility]/pharmacy #[id number], 150, cm, 02/21/20 9:34:00 EST, Height, 96, kg, 10/14/18 15:53:00 EDT, Dry Weight Start Date: 03/03/20 Status: Orderedchlorthalidone 25 mg oral tablet 25 mg, 1, tablet, By Mouth, Daily, Need labwork drawn before refills able to be given, # 30 tablet, Refills 0, Tot. Refills 0, Maintenance, 06/02/20 13:37:00 EST, [id number], cm, 02/21/20 9:34:00 EST, [...] 09/21/18 9:49:50 EDT, Route to Pharmacy Electronically, [id number], [facility]/pharmacy #[id number] Start Date: 09/21/18 Status: Orderedergocalciferol 28576 iu oral capsule 50,000 International_Units, 1, capsule, By Mouth, Every week, take with oily food or milk, # 13 capsule, Refills 0, Tot. Refills 0, Maintenance, 01/18/19 15:18:55 EDT, Route to Pharmacy Electronically, [id number], [facility]/pharmac... Start Date: 01/18/19 Stop Date: 04/18/19 Status: [...] Gm, 2 Refills, Maintenance, 09/21/18 9:51:40 EDT, [place], 2 sprays Nares, Both Daily in AM,x30 [...] 03/03/20 18:11:00 EST, Route to Pharmacy Electronically, [facility]/pharmacy #[id number], 150, cm, 02/21/20 9:34:00 EST, Height, 96, kg, 10/14/18 15:53:00 EDT, Dry Weight Start Date: 03/03/20 Status: Orderednaproxen 250 mg oral tablet See Instructions, # 60 tablet, TAKE 1 TABLET BY MOUTH TWICE A DAY, [facility]/pharmacy #[id number] Start Date: 01/01/19 Status: OrderedProAir HFA 90 mcg/inh inhalation aerosol with adapter 2, puffs, Inhalation, 4 times a day, PRN, # 2 each, Refills 3, Tot. Refills 3, Maintenance, 199:03:26 EDT, Route to Pharmacy Electronically, [id number], [facility]/pharmacy #[id number] Start Date: 09/28/18 Stop Date: 09/23/19 [...]
--- OUTSIDE RECORDS SUMMARY | 2022-02-01 23:50 | XMS_ITS | Continuity of Care Document ---
:1970 Author Organization [facility] Address [address] [place] [phone]- Care Team Providers Name Role Phone Carlos Michelle DO Primary Care Physician [place] [facility] [place]): [place]12[place]21 [facility] [address] [place] [id number]- Encounter Diagnosis Encounter for screening colonoscopy (Discharge Diagnosis) - 10/10/21 Attending Physician: Fredis Plaza MD Admitting Physician: Fredis Plaza MD Referring Physician: Carlos Michelle DO Allergies, [...] Pertussis (oldterm)4 03/25/08 Given 1Result Comment: [01/10/2017] [id number] Note: VIS GIVEN 11/19/083Admin Note: vis [id number] Note: vis given Medications acetaminophen 325 mg oral tablet 650 mg, 2, tablet, By Mouth, 4 times a day, PRN, # 16 tablet, Refills 0, Tot. Refills 0, Maintenance, as needed for pain, 06/12/21 21:45:00 EST, Route to Pharmacy Electronically, [facility]/pharmacy #[id number], Partial fill upon patient request if the prescriptio... Start Date: 06/12/21 Status: Orderedacetaminophen 650 mg oral tablet, extended release 1 tablet = 650 mg, By Mouth, Every 8 hours, PRN as needed for pain, # 60 tablet, 0 Refills, Maintenance, 06/06/21 21:01:00 EST, [id number] fill upon patient request if [...] 0 Refills, Maintenance, 03/03/20 18:10:00 EST, [id number], [facility], cm, 02/21/20 9:34:00 EST, Height, 96, kg, 10/14/18 15:53:00 EDT, Dry Weight Start Date: 03/03/20 Status: Orderedchlorthalidone 25 mg oral tablet 25 mg, 1, tablet, By Mouth, Daily, Need labwork drawn before refills able to be given, # 30 tablet, Refills 5, Tot. Refills 5, Maintenance, 04/06/21 15:22:00 EST, [id number], [facility], cm, 03/23/21 13:56:00 EST, He... [...] 0 Refills, Maintenance, 06/03/21 15:21:00 EST, Gel, [facility]/pharmacy #[id number], 150, cm, 06/03/21 13:32:00 EST, Height Start Date: 06/03/21 Stop Date: 06/17/21 Status: Ordereddocusate sodium 100 mg oral capsule 100 mg, 1, capsule, By Mouth, 2 times a day, PRN, # 50 capsule, Refills 6, Tot. Refills 6, Maintenance, for constipation, 09/21/18 9:49:50 EDT, Route to Pharmacy Electronically, [id number], [facility]/pharmacy #[id number] Start Date: 09/21/18 Status: Orderedergocalciferol 98620 iu oral capsule 50,000 International_Units, 1, capsule, By Mouth, Every week, take with oily food or milk, # 13 capsule, Refills 0, Tot. Refills 0, Maintenance, 01/18/19 15:18:55 EDT, Route to Pharmacy Electronically, [id number], [facility]/pharmac... Start Date: 01/18/19 Stop Date: 04/18/19 Status: Orderedfamotidine 20 mg oral tablet 20 mg, 1, tablet, By Mouth, 2 times a day, # 60 tablet, Refills 0, Tot. Refills 0, Maintenance, 09/16/21 15:39:00 EDT, Route to Pharmacy Electronically, [facility]/pharmacy #[id number], Partial fill upon patient request if the prescription is for a schedule II opi... Start Date: 09/16/21 Status: Orderedferrous sulfate 325 mg oral enteric coated tablet 325 mg, 1, tablet, By Mouth, Daily, # 45 tablet, Refills 3, Tot. Refills 3, Maintenance, 07/02/21 15:01:00 EDT, Route to Pharmacy Electronically, [facility]/pharmacy #[id number], Partial fill upon patient request if the prescription is for a schedule II opioid jarrett... Start Date: 07/02/21 Status: OrderedFlonase 50 mcg/inh nasal spray 2 sprays, Nares, Both, Daily in AM, # 16 Gm, 2 Refills, Maintenance, 09/21/18 9:51:40 EDT, [facility], 2 sprays Nares, Both Daily in AM,x30 days Start Date: 09/21/18 Stop Date: 12/20/18 Status: OrderedFLUoxetine 20 mg oral capsule 20 mg, 1, capsule, By Mouth, Daily, # 90 capsule, Refills 0, Tot. Refills 0, Maintenance, 02/26/21 15:21:00 EST, Route to Pharmacy Electronically, [facility]/pharmacy #[id number], Partial fill upon patient request [...] 06/06/21 21:01:00 EST, Route to Pharmacy Electronically, [facility]/pharmacy #[id number], Partial fill upon patient request if the prescription is for a schedule II op... Start Date: 06/06/21 Status: OrderedLidoderm 5% film 1 patch, Topically, Daily, remove patches after 12 hours and leave off for 12 hours before replacing. You may apply 1-2 patches to the area., # 30 patch, 0 Refills, Maintenance, 06/12/21 21:45:00 EST, [facility]/pharmacy #[id number], Partial fill upon patient req... Start Date: 06/12/21 Status: Orderedlosartan 50 mg oral tablet 50 mg, 1, tablet, By Mouth, Daily, # 30 tablet, Refills 5, Tot. Refills 5, Maintenance, 04/06/21 15:22:00 EST, Route to Pharmacy Electronically, [facility]/pharmacy #[id number], 150, cm, 03/23/21 13:56:00 EST, Height Start Date: 04/06/21 Status: OrderedMiraLax oral powder for reconstitution = 17 Gm, By Mouth, Daily, dissolve in water before taking, # 255 Gm, 0 Refills, Maintenance, 07/02/21 22:10:00 EDT, REC Powder, [facility]/pharmacy #[id number], Partial fill upon patient request if the prescriptionis for a schedule II opioid drug., 17 Gm By Mouth... Start Date: 07/02/21 Status: Orderednaproxen 250 mg oral tablet See Instructions, # 60 tablet, TAKE 1 TABLET BY MOUTH TWICE A DAY, [facility]/pharmacy #[id number] Start Date: 01/01/19 Status: OrderedProAir HFA 90 mcg/inh inhalation aerosol with adapter 2, puffs, Inhalation, 4 times a day, PRN, # 2 each, Refills 3, Tot. Refills 3, Maintenance, :03:26 EDT, Route to Pharmacy Electronically, [id number], [facility]/pharmacy #[id number] Start Date: 09/28/18 Stop Date: 09/23/19 Status: OrderedVitamin C 500 mg oral tablet 1 tablet = 500 mg, By Mouth, Daily, # 90 tablet, 0 Refills, Maintenance, 07/02/21 15:01:00 EDT, Tablet, [facility]/pharmacy #[id number], Partial fill upon patient request [...] 0 Refills, Maintenance, 07/02/21 15:09:00 EDT, Capsule, [facility]/pharmacy #[id number], Partial fill upon patient request [...] osteoarthritis(Confirmed) Active Severe obesity(Confirmed) Active 1heavy periods Diagnosis Diagnosis Type Effective Dates Health Clinical Infor mant Status Service Encounter for Discharge 10/10/21 screening Diagnosis colonoscopy Social History Social History Type Response Smoking Status Current some day smoker; Typ e: Cigarettes; Previous treatment: None; Interested in cessation: Yes; Tobacco use times per day: 3; Number of years: 30; Started at age: 16; entered on: 10/03/17 Sex Female
--- OUTSIDE RECORDS SUMMARY | 2022-02-01 23:50 | XMS_ITS | Continuity of Care Document ---
:1970 Author Organization [facility] Address [address] [place] [phone]- Care Team Providers Name Role Phone Carlos Michelle DO Primary Care Physician Encounter [facility] Date(s): 07/17/21 - 08/16/21 [facility] [address] [place] [id number] Allergies, Adverse Reactions, Alerts No Known Allergies Immunizations Given and Recorded Vaccine Date Status Refusal Reason influenza virus vaccine, inactivated 02/19/19 Given influenza virus vaccine, inactivated1 01/10/17 Given influenza virus vaccine, inactivated 05/02/15 Given pneumococcal 23-valent vaccine 10/03/17 Given tetanus/diphtheria/pertussis, acel(Tdap) 10/03/17 Given Influenza Inactive (IM) (oldterm)2 12/18/08 Given Influenza Inactive (IM) (oldterm)3 03/25/08 Given Tet/Diphth/Acel, Pertussis (oldterm)4 03/25/08 Given 1Result Comment: [01/10/2017] [id number] Note: VIS GIVEN 11/19/083Admin Note: vis [id number] Note: vis given Medications acetaminophen 325 mg oral tablet 650 mg, 2, tablet, By Mouth, 4 times a day, PRN, # 16 tablet, Refills 0, Tot. Refills 0, Maintenance, as needed for pain, 06/12/21 21:45:00 EST, Route to Pharmacy Electronically, [facility]/pharmacy #[id number], Partial fill upon patient request if the prescriptio... Start Date: 06/12/21 Status: Orderedacetaminophen 650 mg oral tablet, extended release 1 tablet = 650 mg, By Mouth, Every 8 hours, PRN as needed for pain, # 60 tablet, 0 Refills, Maintenance, 06/06/21 21:01:00 EST, ER Tablet, [facility]/pharmacy #[id number], Partial fill upon patient request [...] 0 Refills, Maintenance, 03/03/20 18:10:00 EST, Tablet, [facility]/pharmacy #[id number], 150, cm, 02/21/20 9:34:00 EST, Height, 96, kg, 10/14/18 15:53:00 EDT, Dry Weight Start Date: 03/03/20 Status: Orderedchlorthalidone 25 mg oral tablet 25 mg, 1, tablet, By Mouth, Daily, Need labwork drawn before refills able to be given, # 30 tablet, Refills 5, Tot. Refills 5, Maintenance, 04/06/21 15:22:00 EST, Route to Pharmacy Electronically, [facility]/pharmacy #[id number], 150, cm, 03/23/21 13:56:00 EST, [...] 0 Refills, Maintenance, 06/03/21 15:21:00 EST, Gel, [facility]/pharmacy #[id number], 150, cm, 06/03/21 13:32:00 EST, Height Start Date: 06/03/21 Stop Date: 06/17/21 Status: Ordereddocusate sodium 100 mg oral capsule 100 mg, 1, capsule, By Mouth, 2 times a day, PRN, # 50 capsule, Refills 6, Tot. Refills 6, Maintenance, for constipation, 09/21/18 9:49:50 EDT, Route to Pharmacy Electronically, [id number], [facility]/pharmacy #[id number] Start Date: 09/21/18 Status: Orderedergocalciferol 31675 iu oral capsule 50,000 International_Units, 1, capsule, By Mouth, Every week, take with oily food or milk, # 13 capsule, Refills 0, Tot. Refills 0, Maintenance, 01/18/19 15:18:55 EDT, Route to Pharmacy Electronically, [id number], [facility]... Start Date: 01/18/19 Stop Date: 04/18/19 [...] Gm, 2 Refills, Maintenance, 09/21/18 9:51:40 EDT, [place], 2 sprays Nares, Both Daily in AM,x30 days Start Date: 09/21/18 Stop Date: 12/20/18 Status: OrderedFLUoxetine 20 mg oral capsule 20 mg, 1, capsule, By Mouth, Daily, # 90 capsule, Refills 0, Tot. Refills 0, Maintenance, 02/26/21 15:21:00 EST, [id number] fill upon patient [...] 06/06/21 21:01:00 EST, [id number] Partial fill upon patient request if the prescription is for a schedule II op... Start Date: 06/06/21 Status: OrderedLidoderm 5% film 1 patch, Topically, Daily, remove patches after 12 hours and leave off for 12 hours before replacing. You may apply 1-2 patches to the area., # 30 patch, 0 Refills, Maintenance, 06/12/21 21:45:00 EST, [facility]/pharmacy #[id number], Partial fill upon patient req... Start Date: 06/12/21 Status: Orderedlosartan 50 mg oral tablet 50 mg, 1, tablet, By Mouth, Daily, # 30 tablet, Refills 5, Tot. Refills 5, Maintenance, 04/06/21 15:22:00 EST, Route to Pharmacy Electronically, [facility]/pharmacy #[id number], 150, cm, 03/23/21 13:56:00 EST, Height Start Date: 04/06/21 Status: Orderedmelatonin 3 mg oral tablet 2 tablet = 6 mg, By Mouth, Daily at bedtime, PRN for insomnia, # 60 tablet, 1 Refills, Acute 09/23/21 15:07:00 EDT, 07/24/21 15:07:00 EDT, Tablet, [facility], 150, cm, 07/16/21 13:22:00EDT, Height, 96.8, kg, 06/12/21 22:20:00 EST, Dry... Start Date: 07/24/21 Stop Date: 09/23/21 Status: OrderedMiraLax oral powder for reconstitution = 17 Gm, By Mouth, Daily, dissolve in water before taking, # 255 Gm, 0 Refills, Maintenance, 07/02/21 22:10:00 EDT, REC Powder, [facility]/pharmacy #[id number], Partial fill upon patient request if the prescriptionis for a schedule II opioid drug., 17 Gm By Mouth... Start Date: 07/02/21 Status: Orderednaproxen 250 mg oral tablet See Instructions, # 60 tablet, TAKE 1 TABLET BY MOUTH TWICE A DAY, [facility]/pharmacy #[id number] Start Date: 01/01/19 Status: OrderedProAir HFA 90 mcg/inh inhalation aerosol with adapter 2, puffs, Inhalation, 4 times a day, PRN, # 2 each, Refills 3, Tot. Refills 3, Maintenance, :03:26 EDT, Route to Pharmacy Electronically, [id number], [facility]/pharmacy #[id number] Start Date: 09/28/18 Stop Date: 09/23/19 Status: OrderedVitamin C 500 mg oral tablet 1 tablet = 500 mg, By Mouth, Daily, # 90 tablet, 0 Refills, Maintenance, 07/02/21 15:01:00 EDT, Tablet, [facility]/pharmacy #[id number], Partial fill upon patient request [...] Refills, Maintenance, 07/02/21 15:09:00 EDT, Capsule, [id number], Partial fill upon patient request if the [...]
--- OUTSIDE RECORDS SUMMARY | 2022-02-01 23:50 | XMS_ITS | Continuity of Care Document ---
:1970 Author Organization [facility] Address [address] [place] [address]- Care Team Providers Name Role Phone Carlos Michelle DO Primary Care Physician [place] [facility] [place] [facility] [address] [place] [id number] Allergies, Adverse Reactions, Alerts [...] Pertussis (oldterm)4 03/25/08 Given 1Result Comment: [01/10/2017] [id number] Note: VIS GIVEN 11/19/083Admin Note: vis [id number] Note: vis given Medications betamethasone topical dipropionate [...] 15:22:00 EST, Route to Pharmacy Electronically, [facility]/pharmacy #[id number], 150, cm, 03/23/21 13:56:00 EST, [...] 09/21/18 9:49:50 EDT, Route to Pharmacy Electronically, [id number], [facility]/pharmacy #[id number] Start Date: 09/21/18 Status: Orderedergocalciferol 69600 iu oral capsule 50,000 International_Units, 1, capsule, By Mouth, Every week, take with oily food or milk, # 13 capsule, Refills 0, Tot. Refills 0, Maintenance, 01/18/19 15:18:55 EDT, Route to Pharmacy Electronically, [id number], [facility]/pharmac... Start Date: 01/18/19 Stop Date: 04/18/19 Status: Orderedferrous sulfate 325 mg oral enteric coated tablet 325 mg, 1, tablet, By Mouth, Every other day, # 45 tablet, Refills 3, Tot. Refills 3, Maintenance, 04/22/21 10:25:00 EST, Route to Pharmacy Electronically, [facility]/pharmacy #[id number], Partial fill upon patientrequest if the [...] Gm, 2 Refills, Maintenance, 09/21/18 9:51:40 EDT, [place], 2 sprays Nares, Both Daily in AM,x30 days Start Date: 09/21/18 Stop Date: 12/20/18 Status: OrderedFLUoxetine 20 mg oral capsule 20 mg, 1, capsule, By Mouth, Daily, # 90 capsule, Refills 0, Tot. Refills 0, Maintenance, 02/26/21 15:21:00 EST, Route to Pharmacy Electronically, [facility]/pharmacy #[id number], Partial fill upon patient request [...] 15:22:00 EST, Route to Pharmacy Electronically, [facility]/pharmacy #[id number], 150, cm, 03/23/21 13:56:00 EST, Height Start Date: 04/06/21 Status: Orderednaproxen 250 mg oral tablet See Instructions, # 60 tablet, TAKE 1 TABLET BY MOUTH TWICE A DAY, [facility]/pharmacy #[id number] Start Date: 01/01/19 Status: OrderedProAir HFA 90 mcg/inh inhalation aerosol with adapter 2, puffs, Inhalation, 4 times a day, PRN, # 2 each, Refills 3, Tot. Refills 3, Maintenance, 199:03:26 EDT, Route to Pharmacy Electronically, [id number], [facility]/pharmacy #[id number] Start Date: 09/28/18 Stop Date: [...] Refills, Maintenance, 04/22/21 10:25:00 EST, Tablet, [facility]/pharmacy #[id number], Partial fill upon patient request [...]
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
--- OUTSIDE RECORDS SUMMARY | 2022-02-01 23:50 | XMS_ITS | Continuity of Care Document ---
:1970 Author Organization [facility] Address [address] [place] [address]- Care Team Providers Name Role Phone Carlos Michelle DO Primary Care Physician Encounter [facility] Date(s): 03/28/20 - 04/04/20 [facility] [address], [place] [address] Encounter Diagnosis Sore throat (Discharge Diagnosis) - 03/28/20 Attending Physician: Luis Antonio Nash MD Referring Physician: Carlos Michelle DO Allergies, [...] Pertussis (oldterm)4 03/25/08 Given 1Result Comment: [01/10/2017] [id number] Note: VIS GIVEN 11/19/083Admin Note: vis [id number] Note: vis given Medications amoxicillin 250 mg/5 ml oral powder for reconstitution 10 mL = 500 mg, By Mouth, 3 times a day, for 10 days, # 300 mL, 0 Refills, Acute 04/07/20 15:29:00 EST, 03/28/20 15:29:00 EST, REC Powder, [facility] #[id number], Partial fill upon patient requestif the prescription is for a schedule II opioid d... Start Date: 03/28/20 Stop Date: 04/07/20 Status: Orderedbetamethasone topical dipropionate 0.05% cream 1 application, Topically, Daily, # 45 Gm, 1 Refills, Maintenance, 03/30/18 16:19:01 EST, Cream, 1 application Topically Daily Start Date: 03/30/18 Status: Orderedcetirizine 10 mg oral tablet 1 tablet = 10 mg, By Mouth, Daily, # 30 tablet, 0 Refills, Maintenance, 03/03/20 18:10:00 EST, Tablet, [facility]/pharmacy #[id number], 150, cm, 02/21/20 9:34:00 EST, Height, 96, kg, 10/14/18 15:53:00 EDT, Dry Weight Start Date: 03/03/20 Status: Orderedchlorthalidone 25 mg oral tablet 25 mg, 1, tablet, By Mouth, Daily, STOP HCTZ/Lisinopril and amlodipine, # 30 tablet, Refills 11, Tot. Refills 11, Maintenance, 04/02/19 13:09:00 EST, Route to Pharmacy Electronically, [facility]/pharmacy #[id number], 150, cm, 02/19/19 10:56:00 EST, Height, [...] 09/21/18 9:49:50 EDT, Route to Pharmacy Electronically, [id number], [facility]/pharmacy #[id number] Start Date: 09/21/18 Status: Orderedergocalciferol 07232 iu oral capsule 50,000 International_Units, 1, capsule, By Mouth, Every week, take with oily food or milk, # 13 capsule, Refills 0, Tot. Refills 0, Maintenance, 01/18/19 15:18:55 EDT, Route to Pharmacy Electronically, [id number], [facility]/pharmac... Start Date: 01/18/19 Stop Date: [...] Gm, 2 Refills, Maintenance, 09/21/18 9:51:40 EDT, [place], 2 sprays Nares, Both Daily in AM,x30 [...] 03/03/20 18:11:00 EST, Route to Pharmacy Electronically, [facility]/pharmacy #[id number], 150, cm, 02/21/20 9:34:00 EST, Height, 96, kg, 10/14/18 15:53:00 EDT, Dry Weight Start Date: 03/03/20 Status: Orderedmelatonin 3 mg oral tablet 2 tablet = 6 mg, By Mouth, Daily at bedtime, PRN for insomnia, # 60 tablet, 1 Refills, Acute 05/15/20 15:55:00 EST, 06/07/19 15:55:00 EST, Tablet, [facility]/pharmacy #[id number], 150, cm, 06/07/19 15:22:00 EST, Height, 96, kg, 10/14/18 15:53:00 EDT, Dry Weight Start Date: 06/07/19 Stop Date: 05/15/20 Status: Orderednaproxen 250 mg oral tablet See Instructions, # 60 tablet, TAKE 1 TABLET BY MOUTH TWICE A DAY, [facility]/pharmacy #[id number] Start Date: 01/01/19 Status: OrderedProAir HFA 90 mcg/inh inhalation aerosol with adapter 2, puffs, Inhalation, 4 times a day, PRN, # 2 each, Refills 3, Tot. Refills 3, Maintenance, 199:03:26 EDT, Route to Pharmacy Electronically, [id number], [facility]/pharmacy #[id number] Start Date: 09/28/18 Stop [...] Obesity(Confirmed) Active Knee osteoarthritis(Confirmed) Active 1heavy periods Diagnosis Diagnosis Type Effective Dates Health Status Clinical Serv ice Informant Sore throat Discharge 03/28/20 Diagnosis Social History Social History Type Response Smoking Status Current some day smoker; Typ e: Cigarettes; Previous treatment: None; Interested in cessation: Yes; Tobacco use times per day: 3; Number of years: 30; Started at age: 16; entered on: 10/03/17 Sex Female
--- OUTSIDE RECORDS SUMMARY | 2022-02-01 23:50 | XMS_ITS | Continuity of Care Document ---
:1970 Author Organization [facility] Address [address] [place] [address]- Care Team Providers Name Role Phone Carlos Michelle DO Primary Care Physician [facility]counter [facility] Date(s): 06/07/19 - 06/17/19 [facility] [address] [place] [address]- [facility] Attending Physician: Sanjana Green Admitting Physician: AdmSanjana [...] Pertussis (oldterm)4 03/25/08 Given 1Result Comment: [01/10/2017] [id number] Note: VIS GIVEN 11/19/083Admin Note: vis [id number] Note: vis given Medications betamethasone topical dipropionate 0.05% cream 1 application, Topically, Daily, # 45 Gm, 1 Refills, Maintenance, 03/30/18 16:19:01 EST, Cream, 1 application Topically Daily Start Date: 03/30/18 Status: Orderedcetirizine 10 mg oral tablet 1 tablet = 10 mg, By Mouth, Daily, # 30 tablet, 0 Refills, Maintenance, 03/30/18 16:19:36 EST, Tablet Start Date: 03/30/18 Status: Orderedchlorthalidone 25 mg oral tablet 25 mg, 1, tablet, By Mouth, Daily, STOP HCTZ/Lisinopril and amlodipine, # 30 tablet, Refills 11, Tot. Refills 11, Maintenance, 04/02/19 13:09:00 EST, Route to Pharmacy Electronically, [facility]/pharmacy #[id number], 150, cm, 02/19/19 10:56:00 EST, Height, [...] 09/21/18 9:49:50 EDT, Route to Pharmacy Electronically, [id number], [facility]/pharmacy #[id number] Start Date: 09/21/18 Status: Orderedergocalciferol 37104 iu oral capsule 50,000 International_Units, 1, capsule, By Mouth, Every week, take with oily food or milk, # 13 capsule, Refills 0, Tot. Refills 0, Maintenance, 01/18/19 15:18:55 EDT, Route to Pharmacy Electronically, [id number], [facility]/pharmac... Start Date: 01/18/19 Stop Date: [...] Gm, 2 Refills, Maintenance, 09/21/18 9:51:40 EDT, [place], 2 sprays Nares, Both Daily in AM,x30 [...] 06/07/19 15:51:00 EST, Route to Pharmacy Electronically, [facility]/pharmacy #[id number], 150, cm, 06/07/19 15:22:00 EST, Height, 96, kg, 10/14/18 15:53:00 EDT, Dry Weight Start Date: 06/07/19 Status: Orderedmelatonin 3 mg oral tablet 2 tablet = 6 mg, By Mouth, Daily at bedtime, PRN for insomnia, # 60 tablet, 1 Refills, Acute 05/15/20 15:55:00 EST, 06/07/19 15:55:00 EST, Tablet, [facility]/pharmacy #[id number], 150, cm, 06/07/19 15:22:00 EST, Height, 96, kg, 10/14/18 15:53:00 EDT, Dry Weight Start Date: 06/07/19 Stop Date: 05/15/20 Status: Orderednaproxen 250 mg oral tablet See Instructions, # 60 tablet, TAKE 1 TABLET BY MOUTH TWICE A DAY, [facility]/pharmacy #[id number] Start Date: 01/01/19 Status: OrderedProAir HFA 90 mcg/inh inhalation aerosol with adapter 2, puffs, Inhalation, 4 times a day, PRN, # 2 each, Refills 3, Tot. Refills 3, Maintenance, 199:03:26 EDT, Route to Pharmacy Electronically, [id number], [facility]/pharmacy #[id number] Start Date: 09/28/18 Stop [...]
--- OUTSIDE RECORDS SUMMARY | 2022-02-01 23:50 | XMS_ITS | Continuity of Care Document ---
:1970 Author Organization [facility] Address [address] [place] [address]- Care Team Providers Name Role Phone Carlos Michelle DO Primary Care Physician [facility]counter [facility] Date(s): 02/17/21 - 03/19/21 [facility] [address] [place] [id number] Allergies, Adverse Reactions, Alerts Substance [...] Pertussis (oldterm)4 03/25/08 Given 1Result Comment: [01/10/2017] [id number] Note: VIS GIVEN 11/19/083Admin Note: vis [id number] Note: vis given Medications betamethasone topical dipropionate [...] 06/02/20 13:37:00 EST, Route to Pharmacy Electronically, [facility]/pharmacy #[id number], 150, cm, 02/21/20 9:34:00 EST, Hei... [...] 09/21/18 9:49:50 EDT, Route to Pharmacy Electronically, [id number], [facility]/pharmacy #[id number] Start Date: 09/21/18 Status: Orderedergocalciferol 36413 iu oral capsule 50,000 International_Units, 1, capsule, By Mouth, Every week, take with oily food or milk, # 13 capsule, Refills 0, Tot. Refills 0, Maintenance, 01/18/19 15:18:55 EDT, Route to Pharmacy Electronically, [id number], [facility]/pharmac... Start Date: 01/18/19 Stop [...] Gm, 2 Refills, Maintenance, 09/21/18 9:51:40 EDT, [place], 2 sprays Nares, Both Daily in AM,x30 days Start Date: 09/21/18 Stop Date: 12/20/18 Status: OrderedFLUoxetine 20 mg oral capsule 20 mg, 1, capsule, By Mouth, Daily, # 90 capsule, Refills 0, Tot. Refills 0, Maintenance, 02/26/21 15:21:00 EST, Route to Pharmacy Electronically, [facility]/pharmacy #[id number], Partial fill upon patient request if the prescription is for a schedule II opioid . Start Date: 02/26/21 Status: Orderedfluticasone CFC free [...] 03/03/20 18:11:00 EST, Route to Pharmacy Electronically, [facility]/pharmacy #[id number], 150, cm, 02/21/20 [...] Maintenance, 199:03:26 EDT, Route to Pharmacy Electronically, [id number], [facility]/pharmacy #[id number] Start Date: 09/28/18 [...]
--- OUTSIDE RECORDS SUMMARY | 2022-02-01 23:50 | XMS_ITS | Continuity of Care Document ---
:1970 Author Organization [facility] Address [address] [place] [address]- Care Team Providers Name Role Phone Carlos Michelle DO Primary Care Physician [facility] Date[facility]s): 05/25/21 - 06/27/21 [facility] [address] [place] [id number] Attending Physician: Not on Staff, Attending [...] Pertussis (oldterm)4 03/25/08 Given 1Result Comment: [01/10/2017] [id number] Note: VIS GIVEN 11/19/083Admin Note: vis [id number] Note: vis given Medications acetaminophen 325 mg oral tablet 650 mg, 2, tablet, By Mouth, 4 times a day, PRN, # 16 tablet, Refills 0, Tot. Refills 0, Maintenance, as needed for pain, 06/12/21 21:45:00 EST, Route to Pharmacy Electronically, [facility]/pharmacy #[id number], Partial fill upon patient request if the prescriptio... Start Date: 06/12/21 Status: Orderedacetaminophen 650 mg oral tablet, extended release 1 tablet = 650 mg, By Mouth, Every 8 hours, PRN as needed for pain, # 60 tablet, 0 Refills, Maintenance, 06/06/21 21:01:00 EST, ER Tablet, [facility]/pharmacy #[id number], Partial fill upon patient request [...] 0 Refills, Maintenance, 03/03/20 18:10:00 EST, Tablet, [facility]/pharmacy #[id number], 150, cm, 02/21/20 9:34:00 EST, Height, 96, kg, 10/14/18 15:53:00 EDT, Dry Weight Start Date: 03/03/20 Status: Orderedchlorthalidone 25 mg oral tablet 25 mg, 1, tablet, By Mouth, Daily, Need labwork drawn before refills able to be given, # 30 tablet, Refills 5, Tot. Refills 5, Maintenance, 04/06/21 15:22:00 EST, [id number], 150, cm, 03/23/21 13:56:00 EST, He... [...] 0 Refills, Maintenance, 06/03/21 15:21:00 EST, Gel, [facility]/pharmacy #[id number], 150, cm, 06/03/21 13:32:00 EST, Height Start Date: 06/03/21 Stop Date: 06/17/21 Status: Ordereddocusate sodium 100 mg oral capsule 100 mg, 1, capsule, By Mouth, 2 times a day, PRN, # 50 capsule, Refills 6, Tot. Refills 6, Maintenance, for constipation, 09/21/18 9:49:50 EDT, Route to Pharmacy Electronically, [id number], [facility]/pharmacy #[id number] Start Date: 09/21/18 Status: Orderedergocalciferol 20112 iu oral capsule 50,000 International_Units, 1, capsule, By Mouth, Every week, take with oily food or milk, # 13 capsule, Refills 0, Tot. Refills 0, Maintenance, 01/18/19 15:18:55 EDT, Route to Pharmacy Electronically, [id number], [facility]/pharmac... Start Date: 01/18/19 Stop Date: 04/18/19 Status: Orderedferrous sulfate 325 mg oral enteric coated tablet 325 mg, 1, tablet, By Mouth, Every other day, # 45 tablet, Refills 3, Tot. Refills 3, Maintenance, 04/22/21 10:25:00 EST, [facility]ically, [id number], Partial fill upon patientrequest if the [...] Gm, 2 Refills, Maintenance, 09/21/18 9:51:40 EDT, [place], 2 sprays Nares, Both Daily in AM,x30 days Start Date: 09/21/18 Stop Date: 12/20/18 Status: OrderedFLUoxetine 20 mg oral capsule 20 mg, 1, capsule, By Mouth, Daily, # 90 capsule, Refills 0, Tot. Refills 0, Maintenance, 02/26/21 15:21:00 EST, Route to Pharmacy Electronically, [facility]/pharmacy #[id number], Partial fill upon patient request [...] 06/06/21 21:01:00 EST, Route to Pharmacy Electronically, [facility]/pharmacy #[id number], Partial fill upon patient request if the prescription is for a schedule II op... Start Date: 06/06/21 Status: OrderedLidoderm 5% film 1 patch, Topically, Daily, remove patches after 12 hours and leave off for 12 hours before replacing. You may apply 1-2 patches to the area., # 30 patch, 0 Refills, Maintenance, 06/12/21 21:45:00 EST, [facility]/pharmacy #[id number], Partial fill upon patient req... Start Date: 06/12/21 Status: Orderedlosartan 50 mg oral tablet 50 mg, 1, tablet, By Mouth, Daily, # 30 tablet, Refills 5, Tot. Refills 5, Maintenance, 04/06/21 15:22:00 EST, Route to Pharmacy Electronically, [facility]/pharmacy #[id number], 150, cm, 03/23/21 13:56:00 EST, Height Start Date: 04/06/21 Status: Orderednaproxen 250 mg oral tablet See Instructions, # 60 tablet, TAKE 1 TABLET BY MOUTH TWICE A DAY, [facility]/pharmacy #[id number] Start Date: 01/01/19 Status: OrderedProAir HFA 90 mcg/inh inhalation aerosol with adapter 2, puffs, Inhalation, 4 times a day, PRN, # 2 each, Refills 3, Tot. Refills 3, Maintenance, 199:03:26 EDT, Route to Pharmacy Electronically, [id number], [facility]/pharmacy #[id number] Start Date: 09/28/18 Stop Date: [...] 3 Refills, Maintenance, 04/22/21 10:25:00 EST, Tablet, [facility]/pharmacy #[id number], Partial fill upon patient request if the prescription is for a schedule II opioid drug., 150, cm, 04/09/21 13:44:00 EST, Height Start Date: 04/22/21 Status: OrderedWalker with Wheels Walker with Wheels, [...]
--- OUTSIDE RECORDS SUMMARY | 2022-02-01 23:50 | XMS_ITS | Continuity of Care Document ---
:1970 Author Organization [facility] Address [address] [place] [id number]- Care Team Providers Name Role Phone Carlos Michelle DO Primary Care Physician [facility] Date[facility]s): 06/16/21 - 07/16/21 [facility] [address] [place] [id number] Allergies, Adverse Reactions, Alerts No Known [...] Pertussis (oldterm)4 03/25/08 Given 1Result Comment: [01/10/2017] [id number] Note: VIS GIVEN 11/19/083Admin Note: vis [id number] Note: vis given Medications acetaminophen 325 mg oral tablet 650 mg, 2, tablet, By Mouth, 4 times a day, PRN, # 16 tablet, Refills 0, Tot. Refills 0, Maintenance, as needed for pain, 06/12/21 21:45:00 EST, Route to Pharmacy Electronically, [facility]/pharmacy #[id number], Partial fill upon patient request if the prescriptio... Start Date: 06/12/21 Status: Orderedacetaminophen 650 mg oral tablet, extended release 1 tablet = 650 mg, By Mouth, Every 8 hours, PRN as needed for pain, # 60 tablet, 0 Refills, Maintenance, 06/06/21 21:01:00 EST, ER Tablet, [facility]/pharmacy #[id number], Partial fill [...] 0 Refills, Maintenance, 03/03/20 18:10:00 EST, Tablet, [facility]/pharmacy #[id number], 150, cm, 02/21/20 9:34:00 EST, [...] 0 Refills, Maintenance, 06/03/21 15:21:00 EST, Gel, [facility]/pharmacy #[id number], 150, cm, 06/03/21 13:32:00 EST, Height Start Date: 06/03/21 Stop Date: 06/17/21 Status: Ordereddocusate sodium 100 mg oral capsule 100 mg, 1, capsule, By Mouth, 2 times a day, PRN, # 50 capsule, Refills 6, Tot. Refills 6, Maintenance, for constipation, 09/21/18 9:49:50 EDT, Route to Pharmacy Electronically, [id number], [facility]/pharmacy #[id number] Start Date: 09/21/18 Status: Orderedergocalciferol 34312 iu oral capsule 50,000 International_Units, 1, capsule, By Mouth, Every week, take with oily food or milk, # 13 capsule, Refills 0, Tot. Refills 0, Maintenance, 01/18/19 15:18:55 EDT, Route to Pharmacy Electronically, [id number], [facility]/pharmac... Start Date: 01/18/19 Stop Date: 04/18/19 Status: Orderedfamotidine 20 mg oral tablet 20 mg, 1, tablet, By Mouth, 2 times a day, # 60 tablet, Refills 0, Tot. Refills 0, Maintenance, 07/02/21 14:53:00 EDT, Route to Pharmacy Electronically, [facility]/pharmacy [...] Gm, 2 Refills, Maintenance, 09/21/18 9:51:40 EDT, [place], 2 sprays Nares, Both Daily in AM,x30 [...] 06/06/21 21:01:00 EST, [facility] patch, 0 Refills, Maintenance, 06/12/21 21:45:00 EST, [facility]/pharmacy #[id number], Partial fill upon patient req... [...] Refills, Maintenance, 07/02/21 22:10:00 EDT, REC Powder, [facility]/pharmacy #[id number], Partial fill upon [...] Maintenance, 199:03:26 EDT, Route to Pharmacy Electronically, [id number], [facility]/pharmacy #[id number] Start Date: 09/28/18 Stop Date: 09/23/19 Status: OrderedVitamin C 500 mg oral tablet 1 tablet = 500 mg, By Mouth, Daily, # 90 tablet, 0 Refills, Maintenance, 07/02/21 15:01:00 EDT, Tablet, [facility]/pharmacy #[id number], Partial fill [...] 0 Refills, Maintenance, 07/02/21 15:09:00 EDT, Capsule, [facility]/pharmacy #[id number], Partial fill upon [...]
--- OUTSIDE RECORDS SUMMARY | 2022-02-01 23:50 | XMS_ITS | Continuity of Care Document ---
:1970 Author Organization [facility] Address [address] [place] [address]- Care Team Providers Name Role Phone Carlos Michelle DO Primary Care Physician [place] [facility] [place] 10/13[place]21 - 11/12/21 [facility] [address] [place] [phone]- Attending Physician: Sanajna Green Admitting Physician: AdmSanjana sevilla Referring Physician: [...] Pertussis (oldterm)4 03/25/08 Given 1Result Comment: [01/10/2017] [id number] Note: VIS GIVEN 11/19/083Admin Note: vis [id number] Note: vis given Medications acetaminophen 325 mg oral tablet 650 mg, 2, tablet, By Mouth, 4 times a day, PRN, # 16 tablet, Refills 0, Tot. Refills 0, Maintenance, as needed for pain, 06/12/21 21:45:00 EST, Route to Pharmacy Electronically, [facility]/pharmacy #[id number], Partial fill upon patient request if the prescriptio... Start Date: 06/12/21 Status: Orderedacetaminophen 650 mg oral tablet, extended release 1 tablet = 650 mg, By Mouth, Every 8 hours, PRN as needed for pain, # 60 tablet, 0 Refills, Maintenance, 06/06/21 21:01:00 EST, ER Tablet, [facility]/pharmacy #[id number], Partial fill upon patient request [...] Maintenance, 03/03/20 18:10:00 EST, Tablet, [facility]/pharmacy #[id number], 150, cm, 02/21/20 9:34:00 EST, Height, 96, kg, 10/14/18 15:53:00 EDT, Dry Weight Start Date: 03/03/20 Status: Orderedchlorthalidone 25 mg oral tablet 25 mg, 1, tablet, By Mouth, Daily, Need labwork drawn before refills able to be given, # 30 tablet, Refills 5, Tot. Refills 5, Maintenance, 04/06/21 15:22:00 EST, Route to Pharmacy Electronically, [facility]/pharmacy #[id number], 150, cm, 03/23/21 13:56:00 EST, [...] Maintenance, 06/03/21 15:21:00 EST, Gel, [facility]/pharmacy #[id number], 150, cm, 06/03/21 13:32:00 EST, Height Start Date: 06/03/21 Stop Date: 06/17/21 Status: Ordereddocusate sodium 100 mg oral capsule 100 mg, 1, capsule, By Mouth, 2 times a day, PRN, # 50 capsule, Refills 6, Tot. Refills 6, Maintenance, for constipation, 09/21/18 9:49:50 EDT, Route to Pharmacy Electronically, [id number], [facility]/pharmacy #[id number] Start Date: 09/21/18 Status: Orderedergocalciferol 64720 iu oral capsule 50,000 International_Units, 1, capsule, By Mouth, Every week, take with oily food or milk, # 13 capsule, Refills 0, Tot. Refills 0, Maintenance, 01/18/19 15:18:55 EDT, Route to Pharmacy Electronically, [id number], [facility]/pharmac... Start Date: 01/18/19 Stop Date: 04/18/19 Status: Orderedfamotidine 20 mg oral tablet 20 mg, 1, tablet, By Mouth, 2 times a day, # 60 tablet, Refills 0, Tot. Refills 0, Maintenance, 09/16/21 15:39:00 EDT, Route to Pharmacy Electronically, [facility]/pharmacy #[id number], Partial fill upon patient request if the prescription is for a schedule II opi... Start Date: 09/16/21 Status: Orderedferrous sulfate 325 mg oral enteric coated tablet 325 mg, 1, tablet, By Mouth, Daily, # 45 tablet, Refills 3, Tot. Refills 3, Maintenance, 07/02/21 15:01:00 EDT, Route to Pharmacy Electronically, [facility]/pharmacy #[id number], Partial fill upon patient request if the prescription is for a schedule II opioid jarrett... Start Date: 07/02/21 Status: OrderedFlonase 50 mcg/inh nasal spray 2 sprays, Nares, Both, Daily in AM, # 16 Gm, 2 Refills, Maintenance, 09/21/18 9:51:40 EDT, [place], 2 sprays Nares, Both Daily in AM,x30 days Start Date: 09/21/18 Stop Date: 12/20/18 Status: OrderedFLUoxetine 20 mg oral capsule 20 mg, 1, capsule, By Mouth, Daily, # 90 capsule, Refills 0, Tot. Refills 0, Maintenance, 02/26/21 15:21:00 EST, Route to Pharmacy Electronically, [facility]/pharmacy #[id number], Partial fill upon patient request [...] EST, Route to Pharmacy Electronically, [facility]/pharmacy #[id number], Partial fill upon patient request if the prescription is for a schedule II op... Start Date: 06/06/21 Status: OrderedLidoderm 5% film 1 patch, Topically, Daily, remove patches after 12 hours and leave off for 12 hours before replacing. You may apply 1-2 patches to the area., # 30 patch, 0 Refills, Maintenance, 06/12/21 21:45:00 EST, [facility]/pharmacy #[id number], Partial fill upon patient req... Start Date: 06/12/21 Status: Orderedlosartan 50 mg oral tablet 50 mg, 1, tablet, By Mouth, Daily, # 30 tablet, Refills 5, Tot. Refills 5, Maintenance, 04/06/21 15:22:00 EST, Route to Pharmacy Electronically, [facility]/pharmacy #[id number], 150, cm, 03/23/21 13:56:00 EST, Height Start Date: 04/06/21 Status: OrderedMiraLax oral powder for reconstitution = 17 Gm, By Mouth, Daily, dissolve in water before taking, # 255 Gm, 0 Refills, Maintenance, 07/02/21 22:10:00 EDT, REC Powder, [facility]/pharmacy #[id number], Partial fill upon patient request if the prescriptionis for a schedule II opioid drug., 17 Gm By Mouth... Start Date: 07/02/21 Status: Orderednaproxen 250 mg oral tablet See Instructions, # 60 tablet, TAKE 1 TABLET BY MOUTH TWICE A DAY, [facility]/pharmacy #[id number] Start Date: 01/01/19 Status: OrderedProAir HFA 90 mcg/inh inhalation aerosol with adapter 2, puffs, Inhalation, 4 times a day, PRN, # 2 each, Refills 3, Tot. Refills 3, Maintenance, :03:26 EDT, Route to Pharmacy Electronically, [id number], [facility]/pharmacy #[id number] Start Date: 09/28/18 Stop Date: 09/23/19 Status: OrderedVitamin C 500 mg oral tablet 1 tablet = 500 mg, By Mouth, Daily, # 90 tablet, 0 Refills, Maintenance, 07/02/21 15:01:00 EDT, Tablet, [facility]/pharmacy #[id number], Partial fill upon patient request [...] Maintenance, 07/02/21 15:09:00 EDT, Capsule, [facility]/pharmacy #[id number], Partial fill upon patient request [...]
--- OUTSIDE RECORDS SUMMARY | 2022-02-01 23:50 | XMS_ITS | Continuity of Care Document ---
:1970 Author Organization [facility] Address [address] [place] [address]- Care Team Providers Name Role Phone Carlos Michelle DO Primary Care Physician Encounter [facility] [id number] Date(s): 06/06/21 - 06/06/[address] [address]- Encounter Diagnosis Osteoarthritis (Final) - 06/06/21 Discharge Disposition: A-D/C Home Attending Physician: Elodia Santos MD Admitting Physician: Elodia Santos MD Referring Physician: Not on Staff, Referring [...] Pertussis (oldterm)4 03/25/08 Given 1Result Comment: [01/10/2017] [id number] Note: VIS GIVEN 11/19/083Admin Note: vis [id number] Note: vis given Medications acetaminophen 650 mg oral tablet, extended release 1 tablet = 650 mg, By Mouth, Every 8 hours, PRN as needed for pain, # 60 tablet, 0 Refills, Maintenance, 06/06/21 21:01:00 EST, ER Tablet, [facility]/pharmacy #[id number], Partial fill upon patient request if the [...] Maintenance, 03/03/20 18:10:00 EST, Tablet, [facility]/pharmacy #[id number], 150, cm, 02/21/20 9:34:00 EST, Height, 96, kg, 10/14/18 15:53:00 EDT, Dry Weight Start Date: 03/03/20 Status: Orderedchlorthalidone 25 mg oral tablet 25 mg, 1, tablet, By Mouth, Daily, Need labwork drawn before refills able to be given, # 30 tablet, Refills 5, Tot. Refills 5, Maintenance, 04/06/21 15:22:00 EST, Route to Pharmacy Electronically, [facility]/pharmacy #[id number], 150, cm, 03/23/21 13:56:00 EST, [...] Maintenance, 06/03/21 15:21:00 EST, Gel, [facility]/pharmacy #[id number], 150, cm, 06/03/21 13:32:00 EST, Height Start Date: 06/03/21 Stop Date: 06/17/21 Status: Ordereddocusate sodium 100 mg oral capsule 100 mg, 1, capsule, By Mouth, 2 times a day, PRN, # 50 capsule, Refills 6, Tot. Refills 6, Maintenance, for constipation, 09/21/18 9:49:50 EDT, Route to Pharmacy Electronically, [id number], [facility]/pharmacy #[id number] Start Date: 09/21/18 Status: Orderedergocalciferol 12892 iu oral capsule 50,000 International_Units, 1, capsule, By Mouth, Every week, take with oily food or milk, # 13 capsule, Refills 0, Tot. Refills 0, Maintenance, 01/18/19 15:18:55 EDT, Route to Pharmacy Electronically, [id number], [facility]/pharmac... Start Date: 01/18/19 Stop Date: 04/18/19 Status: Orderedferrous sulfate 325 mg oral enteric coated tablet 325 mg, 1, tablet, By Mouth, Every other day, # 45 tablet, Refills 3, Tot. Refills 3, Maintenance, 04/22/21 10:25:00 EST, Route to Pharmacy Electronically, [facility]/pharmacy #[id number], Partial fill upon patientrequest if the [...] Gm, 2 Refills, Maintenance, 09/21/18 9:51:40 EDT, [place], 2 sprays Nares, Both Daily in AM,x30 days Start Date: 09/21/18 Stop Date: 12/20/18 Status: OrderedFLUoxetine 20 mg oral capsule 20 mg, 1, capsule, By Mouth, Daily, # 90 capsule, Refills 0, Tot. Refills 0, Maintenance, 02/26/21 15:21:00 EST, Route to Pharmacy Electronically, [facility]/pharmacy #[id number], Partial fill upon patient request [...] 06/06/21 21:01:00 EST, [id number] Partial fill upon patient request if the prescription is for a schedule II op... Start Date: 06/06/21 Status: Orderedlosartan 50 mg oral tablet 50 mg, 1, tablet, By Mouth, Daily, # 30 tablet, Refills 5, Tot. Refills 5, Maintenance, 04/06/21 15:22:00 EST, [facility], [id number], 150, cm, 03/23/21 13:56:00 EST, Height Start Date: 04/06/21 Status: Orderednaproxen 250 mg oral tablet See Instructions, # 60 tablet, TAKE 1 TABLET BY MOUTH TWICE A DAY, [facility]/pharmacy #[id number] Start Date: 01/01/19 Status: OrderedProAir HFA 90 mcg/inh inhalation aerosol with adapter 2, puffs, Inhalation, 4 times a day, PRN, # 2 each, Refills 3, Tot. Refills 3, Maintenance, 199:03:26 EDT, Route to Pharmacy Electronically, [id number], [facility]/pharmacy #[id number] Start Date: 09/28/18 Stop Date: [...] 3 Refills, Maintenance, 04/22/21 10:25:00 EST, Tablet, [facility]/pharmacy #[id number], Partial fill upon patient request [...] Most recent to oldest [Reference Range]: 1 2 Height 150 cm 150 cm (06/06/21 8:55 PM) (06/06/21 8:17 PM) Weight 97.9 kg 97.9 kg (06/06/21 8:55 PM) (06/06/21 8:17 PM) Oxygen Saturation [94-100 %] 98 % 100 % (06/06/21 8:55 PM) (06/06/21 8:17 PM) Pulse Rate [55-90 bpm] 88 bpm 88 bpm (06/06/21 8:55 PM) (06/06/21 8:17 PM) Body Mass Index [18.5-24.99] 43.51 *>HHI* (06/06/21 8:55 PM) Blood Pressure [90-138/55-84 mm Hg] 156/82 mm Hg *H* (06/06/21 8:55 PM) Respiratory Rate [16-30 br/min] 20 br/min 18 br/mi n (06/06/21 8:55 PM) (06/06/21 8:17 PM) Temperature [96.8-100.4 DegF] 98.5 DegF 98.4 DegF (06/06/21 8:55 PM) (06/06/21 8:17 PM) Mode of Delivery (Oxygen) Room air Room air (06/06/21 8:55 PM) (06/06/21 8:17 PM) Blood pressure sites Arm, left (06/06/21 8:55 PM) Temperature Route Oral Oral (06/06/21 8:55 PM) (06/06/21 8:17 PM) Dry Weight 97.9 kg 97.9 kg (06/06/21 8:55 PM) (06/06/21 8:17 PM) Weight Obtained Via Standing scale (06/06/21 8:17 PM) Dry Weight Obtained Via Standing scale (06/06/21 8:17 PM) Social History Social History Type Response Smoking Status Current some day smoker; Typ e: Cigarettes; Previous treatment: None; Interested in cessation: Yes; Tobacco use times per day: 3; Number of years: 30; Started at age: 16; entered on: 10/03/17 Sex Female
--- OUTSIDE RECORDS SUMMARY | 2022-02-01 23:50 | XMS_ITS | Continuity of Care Document ---
:1970 Author Organization [facility] Address [address] [place] [address]- Care Team Providers Name Role Phone Carlos Michelle DO Primary Care Physician Encounter [facility] [place] Date(s): 03/23/21 - 04/22/21 [facility] [address], [place] [address] Attending Physician: Sanjana Green Admitting Physician: [...] Pertussis (oldterm)4 03/25/08 Given 1Result Comment: [01/10/2017] [id number] Note: VIS GIVEN 11/19/083Admin Note: vis [id number] Note: vis given Medications betamethasone topical dipropionate 0.05% cream 1 application, Topically, Daily, # 45 Gm, 1 Refills, Maintenance, 03/30/18 16:19:01 EST, Cream, 1 application Topically Daily Start Date: 03/30/18 Status: Orderedcetirizine 10 mg oral tablet 1 tablet = 10 mg, By Mouth, Daily, # 30 tablet, 0 Refills, Maintenance, 03/03/20 18:10:00 EST, Tablet, [facility]/pharmacy #[id number], 150, cm, 02/21/20 9:34:00 EST, Height, 96, kg, 10/14/18 15:53:00 EDT, Dry Weight Start Date: 03/03/20 Status: Orderedchlorthalidone 25 mg oral tablet 25 mg, 1, tablet, By Mouth, Daily, Need labwork drawn before refills able to be given, # 30 tablet, Refills 5, Tot. Refills 5, Maintenance, 04/06/21 15:22:00 EST, [id number], 150, cm, 03/23/21 13:56:00 EST, He... [...] 09/21/18 9:49:50 EDT, Route to Pharmacy Electronically, [id number], [facility]/pharmacy #[id number] Start Date: 09/21/18 Status: Orderedergocalciferol 40846 iu oral capsule 50,000 International_Units, 1, capsule, By Mouth, Every week, take with oily food or milk, # 13 capsule, Refills 0, Tot. Refills 0, Maintenance, 01/18/19 15:18:55 EDT, Route to Pharmacy Electronically, [id number], [facility]/pharmac... Start Date: 01/18/19 Stop Date: 04/18/19 Status: Orderedferrous sulfate 325 mg oral enteric coated tablet 325 mg, 1, tablet, By Mouth, Every other day, # 45 tablet, Refills 3, Tot. Refills 3, Maintenance, 04/22/21 10:25:00 EST, Route to Pharmacy Electronically, [facility]/pharmacy #[id number], Partial fill upon patientrequest if [...] Gm, 2 Refills, Maintenance, 09/21/18 9:51:40 EDT, [place], 2 sprays Nares, Both Daily in AM,x30 days Start Date: 09/21/18 Stop Date: 12/20/18 Status: OrderedFLUoxetine 20 mg oral capsule 20 mg, 1, capsule, By Mouth, Daily, # 90 capsule, Refills 0, Tot. Refills 0, Maintenance, 02/26/21 15:21:00 EST, Route to Pharmacy Electronically, [facility]/pharmacy #[id number], Partial fill upon patient request [...] 04/06/21 15:22:00 EST, Route to Pharmacy Electronically, [facility]/pharmacy #[id number], 150, cm, 03/23/21 13:56:00 EST, Height Start Date: 04/06/21 Status: Orderednaproxen 250 mg oral tablet See Instructions, # 60 tablet, TAKE 1 TABLET BY MOUTH TWICE A DAY, [facility]/pharmacy #[id number] Start Date: 01/01/19 Status: OrderedProAir HFA 90 mcg/inh inhalation aerosol with adapter 2, puffs, Inhalation, 4 times a day, PRN, # 2 each, Refills 3, Tot. Refills 3, Maintenance, 199:03:26 EDT, Route to Pharmacy Electronically, [id number], [facility]/pharmacy #[id number] Start Date: 09/28/18 Stop Date: [...] 3 Refills, Maintenance, 04/22/21 10:25:00 EST, Tablet, [facility]/pharmacy #[id number], Partial fill upon patient request [...]
--- OUTSIDE RECORDS SUMMARY | 2022-02-01 23:50 | XMS_ITS | Continuity of Care Document ---
:1970 Author Organization [facility] Address [address] [place] [address]- Care Team Providers Name Role Phone Carlos Michelle DO Primary Care Physician Encounter [facility] Date(s): 02/18/21 - 03/20/21 [facility] [address] [place] [id number] Allergies, Adverse Reactions, Alerts Substance [...] Pertussis (oldterm)4 03/25/08 Given 1Result Comment: [01/10/2017] [id number] Note: VIS GIVEN 11/19/083Admin Note: vis [id number] Note: vis given Medications betamethasone topical dipropionate [...] 06/02/20 13:37:00 EST, Route to Pharmacy Electronically, [facility]/pharmacy #[id number], 150, cm, 02/21/20 9:34:00 EST, Hei... [...] 09/21/18 9:49:50 EDT, Route to Pharmacy Electronically, [id number], [facility]/pharmacy #[id number] Start Date: 09/21/18 Status: Orderedergocalciferol 19740 iu oral capsule 50,000 International_Units, 1, capsule, By Mouth, Every week, take with oily food or milk, # 13 capsule, Refills 0, Tot. Refills 0, Maintenance, 01/18/19 15:18:55 EDT, Route to Pharmacy Electronically, [id number], [facility]/pharmac... Start Date: 01/18/19 Stop Date: 04/18/19 Status: [...] Gm, 2 Refills, Maintenance, 09/21/18 9:51:40 EDT, [place], 2 sprays Nares, Both Daily in AM,x30 days Start Date: 09/21/18 Stop Date: 12/20/18 Status: OrderedFLUoxetine 20 mg oral capsule 20 mg, 1, capsule, By Mouth, Daily, # 90 capsule, Refills 0, Tot. Refills 0, Maintenance, 02/26/21 15:21:00 EST, Route to Pharmacy Electronically, [facility]/pharmacy #[id number], Partial fill upon patient request if [...] 03/03/20 18:11:00 EST, Route to Pharmacy Electronically, [facility]/pharmacy #[id number], 150, cm, 02/21/20 9:34:00 EST, Height, 96, kg, 10/14/18 15:53:00 EDT, Dry Weight Start Date: 03/03/20 Status: Orderednaproxen 250 mg oral tablet See Instructions, # 60 tablet, TAKE 1 TABLET BY MOUTH TWICE A DAY, [facility]/pharmacy #[id number] Start Date: 01/01/19 Status: OrderedProAir HFA 90 mcg/inh inhalation aerosol with adapter 2, puffs, Inhalation, 4 times a day, PRN, # 2 each, Refills 3, Tot. Refills 3, Maintenance, 199:03:26 EDT, Route to Pharmacy Electronically, [id number], [facility]/pharmacy #[id number] Start Date: 09/28/18 Stop Date: 09/23/19 [...]
--- OUTSIDE RECORDS SUMMARY | 2022-02-01 23:50 | XMS_ITS | Continuity of Care Document ---
:1970 Author Organization [facility] Address [address] [place] [address]- Care Team Providers Name Role Phone Carlos Michelle DO Primary Care Physician Encounter [facility] Date(s): 03/02/21 - 04/01/21 [facility] [address] [place] [id number] Allergies, Adverse Reactions, Alerts Substance Reaction Severity [...] Pertussis (oldterm)4 03/25/08 Given 1Result Comment: [01/10/2017] [id number] Note: VIS GIVEN 11/19/083Admin Note: vis [id number] Note: vis given Medications betamethasone topical dipropionate [...] 13:37:00 EST, Route to Pharmacy Electronically, [facility]/pharmacy #[id number], 150, cm, 02/21/20 9:34:00 EST, Hei... Start Date: 06/02/20 Stop Date: 07/02/20 Status: Orderedclotrimazole 10 mg oral lozenge 10 mg, 1, lozenge, By Mouth, 5 times a day, for 10 days, # 50 lozenge, Refills 0, Tot. Refills 0, Acute 04/02/21 14:28:00 EST, 03/23/21 14:28:00 EST, [id number] Partial fill upon patient [...] 09/21/18 9:49:50 EDT, Route to Pharmacy Electronically, [id number], [facility]/pharmacy #[id number] Start Date: 09/21/18 Status: Orderedergocalciferol 00506 iu oral capsule 50,000 International_Units, 1, capsule, By Mouth, Every week, take with oily food or milk, # 13 capsule, Refills 0, Tot. Refills 0, Maintenance, 01/18/19 15:18:55 EDT, Route to Pharmacy Electronically, [id number], [facility]/pharmac... Start [...] Gm, 2 Refills, Maintenance, 09/21/18 9:51:40 EDT, [place], 2 sprays Nares, Both Daily in AM,x30 days Start Date: 09/21/18 Stop Date: 12/20/18 Status: OrderedFLUoxetine 20 mg oral capsule 20 mg, 1, capsule, By Mouth, Daily, # 90 capsule, Refills 0, Tot. Refills 0, Maintenance, 02/26/21 15:21:00 EST, Route to Pharmacy Electronically, [facility]/pharmacy #[id number], Partial fill upon patient request if [...] BY MOUTH TWICE A DAY, [facility]/pharmacy #[id number] Start Date: 01/01/19 Status: OrderedProAir HFA 90 mcg/inh inhalation aerosol with adapter 2, puffs, Inhalation, 4 times a day, PRN, # 2 each, Refills 3, Tot. Refills 3, Maintenance, 199:03:26 EDT, Route to Pharmacy Electronically, [id number], [facility]/pharmacy #[id number] [...]
--- OUTSIDE RECORDS SUMMARY | 2022-02-01 23:50 | XMS_ITS | Continuity of Care Document ---
:1970 Author Organization [facility] Address [address] [place] [address]- Care Team Providers Name Role Phone Carlos Michelle DO Primary Care Physician Encounter [facility] Date(s): 06/22/21 - 07/22/21 [facility] [address] [place] [id number] Attending Physician: Not on Staff, Attending [...] Pertussis (oldterm)4 03/25/08 Given 1Result Comment: [01/10/2017] [id number] Note: VIS GIVEN 11/19/083Admin Note: vis [id number] Note: vis given Medications acetaminophen 325 mg oral tablet 650 mg, 2, tablet, By Mouth, 4 times a day, PRN, # 16 tablet, Refills 0, Tot. Refills 0, Maintenance, as needed for pain, 06/12/21 21:45:00 EST, Route to Pharmacy Electronically, [facility]/pharmacy #[id number], Partial fill upon patient request if the prescriptio... Start Date: 06/12/21 Status: Orderedacetaminophen 650 mg oral tablet, extended release 1 tablet = 650 mg, By Mouth, Every 8 hours, PRN as needed for pain, # 60 tablet, 0 Refills, Maintenance, 06/06/21 21:01:00 EST, ER Tablet, [facility]/pharmacy #[id number], Partial fill upon patient [...] 0 Refills, Maintenance, 03/03/20 18:10:00 EST, Tablet, [facility]/pharmacy #[id number], 150, cm, 02/21/20 9:34:00 EST, Height, 96, kg, 10/14/18 15:53:00 EDT, Dry Weight Start Date: 03/03/20 Status: Orderedchlorthalidone 25 mg oral tablet 25 mg, 1, tablet, By Mouth, Daily, Need labwork drawn before refills able to be given, # 30 tablet, Refills 5, Tot. Refills 5, Maintenance, 04/06/21 15:22:00 EST, Route to Pharmacy Electronically, [facility]/pharmacy #[id number], 150, cm, 03/23/21 13:56:00 [...] 0 Refills, Maintenance, 06/03/21 15:21:00 EST, Gel, [facility]/pharmacy #[id number], 150, cm, 06/03/21 13:32:00 EST, Height Start Date: 06/03/21 Stop Date: 06/17/21 Status: Ordereddocusate sodium 100 mg oral capsule 100 mg, 1, capsule, By Mouth, 2 times a day, PRN, # 50 capsule, Refills 6, Tot. Refills 6, Maintenance, for constipation, 09/21/18 9:49:50 EDT, Route to Pharmacy Electronically, [id number], [facility]/pharmacy #[id number] Start Date: 09/21/18 Status: Orderedergocalciferol 87347 iu oral capsule 50,000 International_Units, 1, capsule, By Mouth, Every week, take with oily food or milk, # 13 capsule, Refills 0, Tot. Refills 0, Maintenance, 01/18/19 15:18:55 EDT, Route to Pharmacy Electronically, [id number], [facility]/pharmac... Start Date: 01/18/19 Stop Date: 04/18/19 Status: Orderedfamotidine 20 mg oral tablet 20 mg, 1, tablet, By Mouth, 2 times a day, # 60 tablet, Refills 0, Tot. Refills 0, Maintenance, 07/02/21 14:53:00 EDT, Route to Pharmacy Electronically, [facility]/pharmacy #[id number], Partial fill upon patient [...] Gm, 2 Refills, Maintenance, 09/21/18 9:51:40 EDT, [place], 2 sprays Nares, Both Daily in AM,x30 days Start Date: 09/21/18 Stop Date: 12/20/18 Status: OrderedFLUoxetine 20 mg oral capsule 20 mg, 1, capsule, By Mouth, Daily, # 90 capsule, Refills 0, Tot. Refills 0, Maintenance, 02/26/21 15:21:00 EST, Route to Pharmacy Electronically, [facility]/pharmacy #[id number], Partial fill upon patient [...] 06/06/21 21:01:00 EST, Route to Pharmacy Electronically, [facility]/pharmacy #[id number], Partial fill upon patient request if the prescription is for a schedule II op... Start Date: 06/06/21 Status: OrderedLidoderm 5% film 1 patch, Topically, Daily, remove patches after 12 hours and leave off for 12 hours before replacing. You may apply 1-2 patches to the area., # 30 patch, 0 Refills, Maintenance, 06/12/21 21:45:00 EST, [facility]/pharmacy #[id number], Partial fill upon patient req... Start Date: 06/12/21 Status: Orderedlosartan 50 mg oral tablet 50 mg, 1, tablet, By Mouth, Daily, # 30 tablet, Refills 5, Tot. Refills 5, Maintenance, 04/06/21 15:22:00 EST, Route to Pharmacy Electronically, [facility]/pharmacy #[id number], 150, cm, 03/23/21 13:56:00 EST, Height Start Date: 04/06/21 Status: OrderedMiraLax oral powder for reconstitution = 17 Gm, By Mouth, Daily, dissolve in water before taking, # 255 Gm, 0 Refills, Maintenance, 07/02/21 22:10:00 EDT, REC Powder, [facility]/pharmacy #[id number], Partial fill upon patient request if the prescriptionis for a schedule II opioid drug., 17 Gm By Mouth... Start Date: 07/02/21 Status: Orderednaproxen 250 mg oral tablet See Instructions, # 60 tablet, TAKE 1 TABLET BY MOUTH TWICE A DAY, [facility]/pharmacy #[id number] Start Date: 01/01/19 Status: OrderedProAir HFA 90 mcg/inh inhalation aerosol with adapter 2, puffs, Inhalation, 4 times a day, PRN, # 2 each, Refills 3, Tot. Refills 3, Maintenance, :03:26 EDT, Route to Pharmacy Electronically, [id number], [facility]/pharmacy #[id number] Start Date: 09/28/18 Stop Date: 09/23/19 Status: OrderedVitamin C 500 mg oral tablet 1 tablet = 500 mg, By Mouth, Daily, # 90 tablet, 0 Refills, Maintenance, 07/02/21 15:01:00 EDT, Tablet, [facility]/pharmacy #[id number], Partial fill upon patient [...] 0 Refills, Maintenance, 07/02/21 15:09:00 EDT, Capsule, [facility]/pharmacy #[id number], Partial fill upon patient [...]
--- OUTSIDE RECORDS SUMMARY | 2022-02-01 23:50 | XMS_ITS | Continuity of Care Document ---
:1970 Author Organization [facility] Address [address] [place] [phone]- Care Team Providers Name Role Phone Carlos Michelle DO Primary Care Physician Encounter [facility] Date(s): 08/18/20 - 09/17/20 [facility] [address] [place] [id number] Attending Physician: Sanjana Green Admitting Physician: Sanjana Green Referring Physician: AdmtrSanjana Allergies, Adverse Reactions, Alerts [...] Pertussis (oldterm)4 03/25/08 Given 1Result Comment: [01/10/2017] [id number] Note: VIS GIVEN 11/19/083Admin Note: vis [id number] Note: vis given Medications betamethasone topical dipropionate 0.05% cream 1 application, Topically, Daily, # 45 Gm, 1 Refills, Maintenance, 03/30/18 16:19:01 EST, Cream, 1 application Topically Daily Start Date: 03/30/18 Status: Orderedcetirizine 10 mg oral tablet 1 tablet = 10 mg, By Mouth, Daily, # 30 tablet, 0 Refills, Maintenance, 03/03/20 18:10:00 EST, Tablet, [facility]/pharmacy #[id number], 150, cm, 02/21/20 9:34:00 EST, Height, 96, kg, 10/14/18 15:53:00 EDT, Dry Weight Start Date: 03/03/20 Status: Orderedchlorthalidone 25 mg oral tablet 25 mg, 1, tablet, By Mouth, Daily, Need labwork drawn before refills able to be given, # 30 tablet, Refills 0, Tot. Refills 0, Maintenance, 06/02/20 13:37:00 EST, Route to Pharmacy Electronically, [facility]/pharmacy #[id number], 150, cm, 02/21/20 9:34:00 [...] 09/21/18 9:49:50 EDT, Route to Pharmacy Electronically, [id number], [facility]/pharmacy #[id number] Start Date: 09/21/18 Status: Orderedergocalciferol 98971 iu oral capsule 50,000 International_Units, 1, capsule, By Mouth, Every week, take with oily food or milk, # 13 capsule, Refills 0, Tot. Refills 0, Maintenance, 01/18/19 15:18:55 EDT, Route to Pharmacy Electronically, [id number], [facility]/pharmac... Start Date: 01/18/19 Stop Date: [...] Gm, 2 Refills, Maintenance, 09/21/18 9:51:40 EDT, [place], 2 sprays Nares, Both Daily in AM,x30 [...] 03/03/20 18:11:00 EST, Route to Pharmacy Electronically, [facility]/pharmacy #[id number], 150, cm, 02/21/20 9:34:00 EST, Height, 96, kg, 10/14/18 15:53:00 EDT, Dry Weight Start Date: 03/03/20 Status: Orderednaproxen 250 mg oral tablet See Instructions, # 60 tablet, TAKE 1 TABLET BY MOUTH TWICE A DAY, [facility]/pharmacy #[id number] Start Date: 01/01/19 Status: OrderedProAir HFA 90 mcg/inh inhalation aerosol with adapter 2, puffs, Inhalation, 4 times a day, PRN, # 2 each, Refills 3, Tot. Refills 3, Maintenance, :03:26 EDT, Route to Pharmacy Electronically, [id number], [facility]/pharmacy #[id number] Start Date: 09/28/18 Stop Date: [...]
--- OUTSIDE RECORDS SUMMARY | 2022-02-01 23:50 | XMS_ITS | Continuity of Care Document ---
:1970 Author Organization [facility] Address [address] [place] [address]- Care Team Providers Name Role Phone Carlos Michelle DO Primary Care Physician Encounter [facility] [id number] Date(s): 04/27/21 - 05/27/21 [facility] [address] [place], [place] [address] Attending Physician: Sanjana Green Admitting Physician: AdmtrSanjana Referring Physician: AdmtrSanjana Allergies, Adverse Reactions, Alerts [...] Pertussis (oldterm)4 03/25/08 Given 1Result Comment: [01/10/2017] [id number] Note: VIS GIVEN 11/19/083Admin Note: vis [id number] Note: vis given Medications betamethasone topical dipropionate 0.05% cream 1 application, Topically, Daily, # 45 Gm, 1 Refills, Maintenance, 03/30/18 16:19:01 EST, Cream, 1 application Topically Daily Start Date: 03/30/18 Status: Orderedcetirizine 10 mg oral tablet 1 tablet = 10 mg, By Mouth, Daily, # 30 tablet, 0 Refills, Maintenance, 03/03/20 18:10:00 EST, Tablet, [facility]/pharmacy #[id number], 150, cm, 02/21/20 9:34:00 EST, Height, 96, kg, 10/14/18 15:53:00 EDT, Dry Weight Start Date: 03/03/20 Status: Orderedchlorthalidone 25 mg oral tablet 25 mg, 1, tablet, By Mouth, Daily, Need labwork drawn before refills able to be given, # 30 tablet, Refills 5, Tot. Refills 5, Maintenance, 04/06/21 15:22:00 EST, [id number], cm, 03/23/21 13:56:00 EST, He... [...] 09/21/18 9:49:50 EDT, Route to Pharmacy Electronically, [id number], [facility]/pharmacy #[id number] Start Date: 09/21/18 Status: Orderedergocalciferol 88766 iu oral capsule 50,000 International_Units, 1, capsule, By Mouth, Every week, take with oily food or milk, # 13 capsule, Refills 0, Tot. Refills 0, Maintenance, 01/18/19 15:18:55 EDT, Route to Pharmacy Electronically, [id number], [facility]/pharmac... Start Date: 01/18/19 Stop Date: 04/18/19 Status: Orderedferrous sulfate 325 mg oral enteric coated tablet 325 mg, 1, tablet, By Mouth, Every other day, # 45 tablet, Refills 3, Tot. Refills 3, Maintenance, 04/22/21 10:25:00 EST, Route to Pharmacy Electronically, [facility]/pharmacy #[id number], Partial fill upon patientrequest [...] Gm, 2 Refills, Maintenance, 09/21/18 9:51:40 EDT, [place], 2 sprays Nares, Both Daily in AM,x30 days Start Date: 09/21/18 Stop Date: 12/20/18 Status: OrderedFLUoxetine 20 mg oral capsule 20 mg, 1, capsule, By Mouth, Daily, # 90 capsule, Refills 0, Tot. Refills 0, Maintenance, 02/26/21 15:21:00 EST, Route to Pharmacy Electronically, [facility]/pharmacy #[id number], Partial fill upon patient [...] 04/06/21 15:22:00 EST, Route to Pharmacy Electronically, [facility]/pharmacy #[id number], 150, cm, 03/23/21 13:56:00 EST, Height Start Date: 04/06/21 Status: Orderednaproxen 250 mg oral tablet See Instructions, # 60 tablet, TAKE 1 TABLET BY MOUTH TWICE A DAY, [facility]/pharmacy #[id number] Start Date: 01/01/19 Status: OrderedProAir HFA 90 mcg/inh inhalation aerosol with adapter 2, puffs, Inhalation, 4 times a day, PRN, # 2 each, Refills 3, Tot. Refills 3, Maintenance, 199:03:26 EDT, Route to Pharmacy Electronically, [id number], [facility]/pharmacy #[id number] Start Date: 09/28/18 Stop [...] 3 Refills, Maintenance, 04/22/21 10:25:00 EST, Tablet, [facility]/pharmacy #[id number], Partial fill upon patient [...]
--- OUTSIDE RECORDS SUMMARY | 2022-02-01 23:50 | XMS_ITS | Continuity of Care Document ---
:1970 Author Organization [facility] Address [address] [place] [address]- Care Team Providers Name Role Phone Carlos Michelle DO Primary Care Physician Encounter [facility] Date(s): 05/12/20 - 06/11/20 [facility] [address] [place], [place] [address] Attending Physician: Sanjana Green Admitting [...] Pertussis (oldterm)4 03/25/08 Given 1Result Comment: [01/10/2017] [id number] Note: VIS GIVEN 11/19/083Admin Note: vis [id number] Note: vis given Medications betamethasone topical dipropionate 0.05% cream 1 application, Topically, Daily, # 45 Gm, 1 Refills, Maintenance, 03/30/18 16:19:01 EST, Cream, 1 application Topically Daily Start Date: 03/30/18 Status: Orderedcetirizine 10 mg oral tablet 1 tablet = 10 mg, By Mouth, Daily, # 30 tablet, 0 Refills, Maintenance, 03/03/20 18:10:00 EST, Tablet, [facility]/pharmacy #[id number], 150, cm, 02/21/20 9:34:00 EST, Height, 96, kg, 10/14/18 15:53:00 EDT, Dry Weight Start Date: 03/03/20 Status: Orderedchlorthalidone 25 mg oral tablet 25 mg, 1, tablet, By Mouth, Daily, Need labwork drawn before refills able to be given, # 30 tablet, Refills 0, Tot. Refills 0, Maintenance, 06/02/20 13:37:00 EST, [id number], cm, 02/21/20 9:34:00 EST, Hei... [...] 09/21/18 9:49:50 EDT, Route to Pharmacy Electronically, [id number], [facility]/pharmacy #[id number] Start Date: 09/21/18 Status: Orderedergocalciferol 44134 iu oral capsule 50,000 International_Units, 1, capsule, By Mouth, Every week, take with oily food or milk, # 13 capsule, Refills 0, Tot. Refills 0, Maintenance, 01/18/19 15:18:55 EDT, Route to Pharmacy Electronically, [id number], [facility]... Start Date: 01/18/19 Stop Date: 04/18/19 [...] Gm, 2 Refills, Maintenance, 09/21/18 9:51:40 EDT, [place], 2 sprays Nares, Both Daily in AM,x30 [...] 03/03/20 18:11:00 EST, Route to Pharmacy Electronically, [facility]/pharmacy #[id number], 150, cm, 02/21/20 9:34:00 EST, Height, 96, kg, 10/14/18 15:53:00 EDT, Dry Weight Start Date: 03/03/20 Status: Orderednaproxen 250 mg oral tablet See Instructions, # 60 tablet, TAKE 1 TABLET BY MOUTH TWICE A DAY, [facility]/pharmacy #[id number] Start Date: 01/01/19 Status: OrderedProAir HFA 90 mcg/inh inhalation aerosol with adapter 2, puffs, Inhalation, 4 times a day, PRN, # 2 each, Refills 3, Tot. Refills 3, Maintenance, 199:03:26 EDT, Route to Pharmacy Electronically, [id number], [facility]/pharmacy #[id number] Start Date: 09/28/18 Stop Date: 09/23/19 [...]
--- OUTSIDE RECORDS SUMMARY | 2022-02-01 23:51 | XMS_ITS | Continuity of Care Document ---
:1970 Author Organization [facility] Address [address] [place] [address]- Care Team Providers Name Role Phone Carlos Michelle DO Primary Care Physician Encounter [facility] Date(s): 04/28/21 - 05/28/21 [facility] [address] [place], [place] [address] Attending Physician: Sanjana Green Admitting Physician: AdmSanjana sevilla Referring Physician: Admtr, ArDedrick Allergies, Adverse Reactions, Alerts No Known Allergies Immunizations Given and Recorded Vaccine Date Status Refusal Reason influenza virus vaccine, inactivated 02/19/19 Given influenza virus vaccine, inactivated1 01/10/17 Given influenza virus vaccine, inactivated 05/02/15 Given pneumococcal 23-valent vaccine 10/03/17 Given tetanus/diphtheria/pertussis, acel(Tdap) 10/03/17 Given Influenza Inactive (IM) (oldterm)2 12/18/08 Given Influenza Inactive (IM) (oldterm)3 03/25/08 Given Tet/Diphth/Acel, Pertussis (oldterm)4 03/25/08 Given 1Result Comment: [01/10/2017] [id number] Note: VIS GIVEN 11/19/083Admin Note: vis [id number] Note: vis given Medications betamethasone topical dipropionate 0.05% cream 1 application, Topically, Daily, # 45 Gm, 1 Refills, Maintenance, 03/30/18 16:19:01 EST, Cream, 1 application Topically Daily Start Date: 03/30/18 Status: Orderedcetirizine 10 mg oral tablet 1 tablet = 10 mg, By Mouth, Daily, # 30 tablet, 0 Refills, Maintenance, 03/03/20 18:10:00 EST, Tablet, [facility]/pharmacy #[id number], 150, cm, 02/21/20 9:34:00 EST, Height, 96, kg, 10/14/18 15:53:00 EDT, Dry Weight Start Date: 03/03/20 Status: Orderedchlorthalidone 25 mg oral tablet 25 mg, 1, tablet, By Mouth, Daily, Need labwork drawn before refills able to be given, # 30 tablet, Refills 5, Tot. Refills 5, Maintenance, 04/06/21 15:22:00 EST, Route to Pharmacy Electronically, [facility]/pharmacy #[id number], 150, cm, 03/23/21 13:56:00 [...] 09/21/18 9:49:50 EDT, Route to Pharmacy Electronically, [id number], [facility]/pharmacy #[id number] Start Date: 09/21/18 Status: Orderedergocalciferol 30795 iu oral capsule 50,000 International_Units, 1, capsule, By Mouth, Every week, take with oily food or milk, # 13 capsule, Refills 0, Tot. Refills 0, Maintenance, 01/18/19 15:18:55 EDT, Route to Pharmacy Electronically, [id number], [facility]/pharmac... Start Date: 01/18/19 Stop Date: 04/18/19 Status: Orderedferrous sulfate 325 mg oral enteric coated tablet 325 mg, 1, tablet, By Mouth, Every other day, # 45 tablet, Refills 3, Tot. Refills 3, Maintenance, 04/22/21 10:25:00 EST, Route to Pharmacy Electronically, [facility]/pharmacy #[id number], Partial fill upon patientrequest [...] Gm, 2 Refills, Maintenance, 09/21/18 9:51:40 EDT, [place], 2 sprays Nares, Both Daily in AM,x30 days Start Date: 09/21/18 Stop Date: 12/20/18 Status: OrderedFLUoxetine 20 mg oral capsule 20 mg, 1, capsule, By Mouth, Daily, # 90 capsule, Refills 0, Tot. Refills 0, Maintenance, 02/26/21 15:21:00 EST, Route to Pharmacy Electronically, [facility]/pharmacy #[id number], Partial fill upon patient [...] 04/06/21 15:22:00 EST, Route to Pharmacy Electronically, [facility]/pharmacy #[id number], 150, cm, 03/23/21 13:56:00 EST, Height Start Date: 04/06/21 Status: Orderednaproxen 250 mg oral tablet See Instructions, # 60 tablet, TAKE 1 TABLET BY MOUTH TWICE A DAY, [facility]/pharmacy #[id number] Start Date: 01/01/19 Status: OrderedProAir HFA 90 mcg/inh inhalation aerosol with adapter 2, puffs, Inhalation, 4 times a day, PRN, # 2 each, Refills 3, Tot. Refills 3, Maintenance, 199:03:26 EDT, Route to Pharmacy Electronically, [id number], [facility]/pharmacy #[id number] Start Date: 09/28/18 Stop [...] 3 Refills, Maintenance, 04/22/21 10:25:00 EST, Tablet, [facility]/pharmacy #[id number], Partial fill upon patient [...]
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
--- OUTSIDE RECORDS SUMMARY | 2022-02-01 23:51 | XMS_ITS | Continuity of Care Document ---
:1970 Author Organization [facility] Address [address] [facility], [facility] [address] [place] [address]- Care Team Providers Name Role Phone Carlos Michelle DO Primary Care Physician Encounter 04/02/21 - 04/09/21 [facility] [address], [facility] [address] [place] [address]- Attending Physician: Cuca Ramírez MD Admitting Physician: Cuca Ramírez MD Referring Physician: Carlos Michelle DO Allergies, [...] Pertussis (oldterm)4 03/25/08 Given 1Result Comment: [01/10/2017] [id number] Note: VIS GIVEN 11/19/083Admin Note: vis [id number] Note: vis given Medications betamethasone topical dipropionate [...] 09/21/18 9:49:50 EDT, Route to Pharmacy Electronically, [id number], [facility]/pharmacy #[id number] Start Date: 09/21/18 Status: Orderedergocalciferol 01465 iu oral capsule 50,000 International_Units, 1, capsule, By Mouth, Every week, take with oily food or milk, # 13 capsule, Refills 0, Tot. Refills 0, Maintenance, 01/18/19 15:18:55 EDT, Route to Pharmacy Electronically, [id number], [facility]/pharmac... Start Date: 01/18/19 [...] Gm, 2 Refills, Maintenance, 09/21/18 9:51:40 EDT, [place], 2 sprays Nares, Both Daily in AM,x30 days Start Date: 09/21/18 Stop Date: 12/20/18 Status: OrderedFLUoxetine 20 mg oral capsule 20 mg, 1, capsule, By Mouth, Daily, # 90 capsule, Refills 0, Tot. Refills 0, Maintenance, 02/26/21 15:21:00 EST, Route to Pharmacy Electronically, [facility]/pharmacy #[id number], Partial fill upon patient request if the prescription is for a schedule II opioid drLiz. Start Date: 02/26/21 Status: Orderedfluticasone CFC free [...] 04/06/21 15:22:00 EST, Route to Pharmacy Electronically, [facility]/pharmacy #[id number], 150, cm, 03/23/21 13:56:00 EST, [...] Maintenance, 199:03:26 EDT, Route to Pharmacy Electronically, [id number], [facility]/pharmacy #[id number] Start Date: [...]
--- OUTSIDE RECORDS SUMMARY | 2022-02-01 23:51 | XMS_ITS | Continuity of Care Document ---
:1970 Author Organization [facility] Address [address] [place] [address]- Care Team Providers Name Role Phone Carlos Michelle DO Primary Care Phys[id number] Date[facility] - [facility] [address] [place], [place] [address] Attending Physician: Luis Antonio Nash MD Referring [...] Pertussis (oldterm)4 03/25/08 Given 1Result Comment: [01/10/2017] [id number] Note: VIS GIVEN 11/19/083Admin Note: vis [id number] Note: vis given Medications betamethasone topical dipropionate [...] 04/06/21 15:22:00 EST, [id number], cm, 03/23/21 13:56:00 [...] 09/21/18 9:49:50 EDT, Route to Pharmacy Electronically, [id number], [facility]/pharmacy #[id number] Start Date: 09/21/18 Status: Orderedergocalciferol 15502 iu oral capsule 50,000 International_Units, 1, capsule, By Mouth, Every week, take with oily food or milk, # 13 capsule, Refills 0, Tot. Refills 0, Maintenance, 01/18/19 15:18:55 EDT, Route to Pharmacy Electronically, [id number], [facility]/pharmac... Start Date: 01/18/19 Stop Date: 04/18/19 Status: Orderedferrous sulfate 325 mg oral enteric coated tablet 325 mg, 1, tablet, By Mouth, Every other day, # 45 tablet, Refills 3, Tot. Refills 3, Maintenance, 04/22/21 10:25:00 EST, Route to Pharmacy Electronically, [facility]/pharmacy #[id number], Partial fill upon patientrequest if [...] Gm, 2 Refills, Maintenance, 09/21/18 9:51:40 EDT, [place], 2 sprays Nares, Both Daily in AM,x30 days Start Date: 09/21/18 Stop Date: 12/20/18 Status: OrderedFLUoxetine 20 mg oral capsule 20 mg, 1, capsule, By Mouth, Daily, # 90 capsule, Refills 0, Tot. Refills 0, Maintenance, 02/26/21 15:21:00 EST, Route to Pharmacy Electronically, [facility]/pharmacy #[id number], Partial fill upon patient request [...] EST, Route to Pharmacy Electronically, [facility]/pharmacy #[id number], 150, cm, 03/23/21 13:56:00 EST, Height Start Date: 04/06/21 Status: Orderednaproxen 250 mg oral tablet See Instructions, # 60 tablet, TAKE 1 TABLET BY MOUTH TWICE A DAY, [facility]/pharmacy #[id number] Start Date: 01/01/19 Status: OrderedProAir HFA 90 mcg/inh inhalation aerosol with adapter 2, puffs, Inhalation, 4 times a day, PRN, # 2 each, Refills 3, Tot. Refills 3, Maintenance, 199:03:26 EDT, Route to Pharmacy Electronically, [id number], [facility]/pharmacy #[id number] Start Date: 09/28/18 Stop Date: [...] Maintenance, 04/22/21 10:25:00 EST, Tablet, [facility]/pharmacy #[id number], Partial fill upon patient request [...]
--- OUTSIDE RECORDS SUMMARY | 2022-02-01 23:51 | XMS_ITS | Continuity of Care Document ---
:1970 Author Organization [facility] Address [address] [place] [address]- Care Team Providers Name Role Phone Carlos Michelle DO Primary Care Physician Encounter [facility] Date(s): 07/20/21 - 08/19/21 [facility] [address] [place] [id number] Allergies, Adverse Reactions, Alerts No Known [...] Pertussis (oldterm)4 03/25/08 Given 1Result Comment: [01/10/2017] [id number] Note: VIS GIVEN 11/19/083Admin Note: vis [id number] Note: vis given Medications acetaminophen 325 mg oral tablet 650 mg, 2, tablet, By Mouth, 4 times a day, PRN, # 16 tablet, Refills 0, Tot. Refills 0, Maintenance, as needed for pain, 06/12/21 21:45:00 EST, Route to Pharmacy Electronically, [facility]/pharmacy #[id number], Partial fill upon patient request if the prescriptio... Start Date: 06/12/21 Status: Orderedacetaminophen 650 mg oral tablet, extended release 1 tablet = 650 mg, By Mouth, Every 8 hours, PRN as needed for pain, # 60 tablet, 0 Refills, Maintenance, 06/06/21 21:01:00 EST, ER Tablet, [facility]/pharmacy #[id number], Partial fill upon patient [...] 0 Refills, Maintenance, 03/03/20 18:10:00 EST, Tablet, [facility]/pharmacy #[id number], 150, cm, 02/21/20 9:34:00 EST, Height, 96, kg, 10/14/18 15:53:00 EDT, Dry Weight Start Date: 03/03/20 Status: Orderedchlorthalidone 25 mg oral tablet 25 mg, 1, tablet, By Mouth, Daily, Need labwork drawn before refills able to be given, # 30 tablet, Refills 5, Tot. Refills 5, Maintenance, 04/06/21 15:22:00 EST, Route to Pharmacy Electronically, [facility]/pharmacy #[id number], 150, cm, 03/23/21 13:56:00 EST, He... [...] 0 Refills, Maintenance, 06/03/21 15:21:00 EST, Gel, [facility]/pharmacy #[id number], 150, cm, 06/03/21 13:32:00 EST, Height Start Date: 06/03/21 Stop Date: 06/17/21 Status: Ordereddocusate sodium 100 mg oral capsule 100 mg, 1, capsule, By Mouth, 2 times a day, PRN, # 50 capsule, Refills 6, Tot. Refills 6, Maintenance, for constipation, 09/21/18 9:49:50 EDT, Route to Pharmacy Electronically, [id number], [facility]/pharmacy #[id number] Start Date: 09/21/18 Status: Orderedergocalciferol 58801 iu oral capsule 50,000 International_Units, 1, capsule, By Mouth, Every week, take with oily food or milk, # 13 capsule, Refills 0, Tot. Refills 0, Maintenance, 01/18/19 15:18:55 EDT, Route to Pharmacy Electronically, [id number], [facility] Start Date: 01/18/19 Stop Date: 04/18/19 [...] Gm, 2 Refills, Maintenance, 09/21/18 9:51:40 EDT, [place], 2 sprays Nares, Both Daily in AM,x30 days Start Date: 09/21/18 Stop Date: 12/20/18 Status: OrderedFLUoxetine 20 mg oral capsule 20 mg, 1, capsule, By Mouth, Daily, # 90 capsule, Refills 0, Tot. Refills 0, Maintenance, 02/26/21 15:21:00 EST, [id number] Partial fill upon patient request [...] 06/06/21 21:01:00 EST, [facility] Pharm[facility]ically, [id number] Partial fill upon patient request if the prescription is for a schedule II op... Start Date: 06/06/21 Status: OrderedLidoderm 5% film 1 patch, Topically, Daily, remove patches after 12 hours and leave off for 12 hours before replacing. You may apply 1-2 patches to the area., # 30 patch, 0 Refills, Maintenance, 06/12/21 21:45:00 EST, [facility]/pharmacy #[id number], Partial fill upon patient req... Start Date: 06/12/21 Status: Orderedlosartan 50 mg oral tablet 50 mg, 1, tablet, By Mouth, Daily, # 30 tablet, Refills 5, Tot. Refills 5, Maintenance, 04/06/21 15:22:00 EST, Route to Pharmacy Electronically, [facility]/pharmacy #[id number], 150, cm, 03/23/21 13:56:00 EST, Height Start Date: 04/06/21 Status: Orderedmelatonin 3 mg oral tablet 2 tablet = 6 mg, By Mouth, Daily at bedtime, PRN for insomnia, # 60 tablet, 1 Refills, Acute 09/23/21 15:07:00 EDT, 07/24/21 15:07:00 EDT, Tablet, [facility], 150, cm, 07/16/21 13:22:00EDT, Height, 96.8, kg, 06/12/21 22:20:00 EST, Dry... Start Date: 07/24/21 Stop Date: 09/23/21 Status: OrderedMiraLax oral powder for reconstitution = 17 Gm, By Mouth, Daily, dissolve in water before taking, # 255 Gm, 0 Refills, Maintenance, 07/02/21 22:10:00 EDT, REC Powder, [facility]/pharmacy #[id number], Partial fill upon patient request if the prescriptionis for a schedule II opioid drug., 17 Gm By Mouth... Start Date: 07/02/21 Status: Orderednaproxen 250 mg oral tablet See Instructions, # 60 tablet, TAKE 1 TABLET BY MOUTH TWICE A DAY, [facility]/pharmacy #[id number] Start Date: 01/01/19 Status: OrderedProAir HFA 90 mcg/inh inhalation aerosol with adapter 2, puffs, Inhalation, 4 times a day, PRN, # 2 each, Refills 3, Tot. Refills 3, Maintenance, :03:26 EDT, Route to Pharmacy Electronically, [id number], [facility]/pharmacy #[id number] Start Date: 09/28/18 Stop Date: 09/23/19 Status: OrderedVitamin C 500 mg oral tablet 1 tablet = 500 mg, By Mouth, Daily, # 90 tablet, 0 Refills, Maintenance, 07/02/21 15:01:00 EDT, Tablet, [facility]/pharmacy #[id number], Partial fill upon patient [...] Refills, Maintenance, 07/02/21 15:09:00 EDT, Capsule, [id number], Partial fill upon patient request if the [...]
--- OUTSIDE RECORDS SUMMARY | 2022-02-01 23:51 | XMS_ITS | Continuity of Care Document ---
:1970 Author Organization [facility] Address [address] [place] [address]- Care Team Providers Name Role Phone Carlos Michelle DO Primary Care Physician Encounter [facility] Date(s): 05/07/21 - 06/10/21 [facility] [address] [place] [id number] Attending Physician: Nain Umaña MD Admitting Physician: [...] Pertussis (oldterm)4 03/25/08 Given 1Result Comment: [01/10/2017] [id number] Note: VIS GIVEN 11/19/083Admin Note: vis [id number] Note: vis given Medications acetaminophen 650 mg oral tablet, extended release 1 tablet = 650 mg, By Mouth, Every 8 hours, PRN as needed for pain, # 60 tablet, 0 Refills, Maintenance, 06/06/21 21:01:00 EST, ER Tablet, [id number], Partial fill upon patient request if the [...] Maintenance, 03/03/20 18:10:00 EST, Tablet, [facility]/pharmacy #[id number], 150, cm, 02/21/20 9:34:00 EST, Height, 96, kg, 10/14/18 15:53:00 EDT, Dry Weight Start Date: 03/03/20 Status: Orderedchlorthalidone 25 mg oral tablet 25 mg, 1, tablet, By Mouth, Daily, Need labwork drawn before refills able to be given, # 30 tablet, Refills 5, Tot. Refills 5, Maintenance, 04/06/21 15:22:00 EST, Route to Pharmacy Electronically, [facility]/pharmacy #[id number], 150, cm, 03/23/21 13:56:00 [...] 0 Refills, Maintenance, 06/03/21 15:21:00 EST, Gel, [facility]/pharmacy #[id number], 150, cm, 06/03/21 13:32:00 EST, Height Start Date: 06/03/21 Stop Date: 06/17/21 Status: Ordereddocusate sodium 100 mg oral capsule 100 mg, 1, capsule, By Mouth, 2 times a day, PRN, # 50 capsule, Refills 6, Tot. Refills 6, Maintenance, for constipation, 09/21/18 9:49:50 EDT, Route to Pharmacy Electronically, [id number], [facility]/pharmacy #[id number] Start Date: 09/21/18 Status: Orderedergocalciferol 00725 iu oral capsule 50,000 International_Units, 1, capsule, By Mouth, Every week, take with oily food or milk, # 13 capsule, Refills 0, Tot. Refills 0, Maintenance, 01/18/19 15:18:55 EDT, Route to Pharmacy Electronically, [id number], [facility] Start Date: 01/18/19 Stop Date: 04/18/19 Status: Orderedferrous sulfate 325 mg oral enteric coated tablet 325 mg, 1, tablet, By Mouth, Every other day, # 45 tablet, Refills 3, Tot. Refills 3, Maintenance, 04/22/21 10:25:00 EST, Route to Pharmacy Electronically, [facility]/pharmacy #[id number], Partial fill upon patientrequest if [...] Gm, 2 Refills, Maintenance, 09/21/18 9:51:40 EDT, [place], 2 sprays Nares, Both Daily in AM,x30 days Start Date: 09/21/18 Stop Date: 12/20/18 Status: OrderedFLUoxetine 20 mg oral capsule 20 mg, 1, capsule, By Mouth, Daily, # 90 capsule, Refills 0, Tot. Refills 0, Maintenance, 02/26/21 15:21:00 EST, Route to Pharmacy Electronically, [facility]/pharmacy #[id number], Partial fill upon patient [...] 04/06/21 15:22:00 EST, [id number], cm, 03/23/21 13:56:00 EST, Height [...] Maintenance, 199:03:26 EDT, Route to Pharmacy Electronically, [id number], [facility]/pharmacy #[id number] Start Date: 09/28/18 Stop Date: 09/23/19 Status: OrderedTylenol 8 Hour 650 mg oral tablet, extended release 1 tablet = 650 mg, By Mouth, Every 8 hours, PRN Pain , Moderate, for 14 days, # 50 tablet, 0 Refills, Acute 06/17/21 15:21:00 EST, 06/03/21 15:21:00 EST, ER Tablet, [facility]/pharmacy #[id number], Partial fill upon patient [...] 3 Refills, Maintenance, 04/22/21 10:25:00 EST, Tablet, [facility]/pharmacy #[id number], Partial fill upon patient [...]
--- OUTSIDE RECORDS SUMMARY | 2022-02-01 23:51 | XMS_ITS | Continuity of Care Document ---
:1970 Author Organization [facility] Address [address] [place] [address]- Care Team Providers Name Role Phone Carlos Michelle DO Primary Care Physician Encounter [facility] Date(s): 03/28/20 - 04/27/20 [facility] [address], [place] [address] Attending Physician: Sanjana Green Admitting Physician: Sanjana [...] Pertussis (oldterm)4 03/25/08 Given 1Result Comment: [01/10/2017] [id number] Note: VIS GIVEN 11/19/083Admin Note: vis [id number] Note: vis given Medications betamethasone topical dipropionate 0.05% cream 1 application, Topically, Daily, # 45 Gm, 1 Refills, Maintenance, 03/30/18 16:19:01 EST, Cream, 1 application Topically Daily Start Date: 03/30/18 Status: Orderedcetirizine 10 mg oral tablet 1 tablet = 10 mg, By Mouth, Daily, # 30 tablet, 0 Refills, Maintenance, 03/03/20 18:10:00 EST, Tablet, [facility]/pharmacy #[id number], 150, cm, 02/21/20 9:34:00 EST, Height, 96, kg, 10/14/18 15:53:00 EDT, Dry Weight Start Date: 03/03/20 Status: Orderedchlorthalidone 25 mg oral tablet 25 mg, 1, tablet, By Mouth, Daily, Need labwork drawn before refills able to be given, # 30 tablet, Refills 0, Tot. Refills 0, Maintenance, 04/16/20 23:31:00 EST, [id number], cm, 02/21/20 9:34:00 EST, [...] 09/21/18 9:49:50 EDT, Route to Pharmacy Electronically, [id number], [facility]/pharmacy #[id number] Start Date: 09/21/18 Status: Orderedergocalciferol 74494 iu oral capsule 50,000 International_Units, 1, capsule, By Mouth, Every week, take with oily food or milk, # 13 capsule, Refills 0, Tot. Refills 0, Maintenance, 01/18/19 15:18:55 EDT, Route to Pharmacy Electronically, [id number], [facility]/pharmac... Start Date: 01/18/19 Stop Date: 04/18/19 [...] Gm, 2 Refills, Maintenance, 09/21/18 9:51:40 EDT, [place], 2 sprays Nares, Both Daily in AM,x30 [...] EST, Route to Pharmacy Electronically, [facility]/pharmacy #[id number], 150, cm, 02/21/20 9:34:00 EST, Height, 96, kg, 10/14/18 15:53:00 EDT, Dry Weight Start Date: 03/03/20 Status: Orderedmelatonin 3 mg oral tablet 2 tablet = 6 mg, By Mouth, Daily at bedtime, PRN for insomnia, # 60 tablet, 1 Refills, Acute 05/15/20 15:55:00 EST, 06/07/19 15:55:00 EST, Tablet, [facility]/pharmacy #[id number], 150, cm, 06/07/19 15:22:00 EST, Height, [...] Maintenance, 199:03:26 EDT, Route to Pharmacy Electronically, [id number], [id number] Start Date: 09/28/18 Stop Date: [...]
--- OUTSIDE RECORDS SUMMARY | 2022-02-01 23:51 | XMS_ITS | Continuity of Care Document ---
:1970 Author Organization [facility] Address [address] [place] [address]- Care Team Providers Name Role Phone Carlos Michelle DO Primary Care Physician [facility]counter [facility] Date(s): 07/17/21 - 08/16/21 [facility] [address] [place] [id number] Allergies, Adverse Reactions, Alerts No Known Allergies Immunizations Given and Recorded Vaccine Date Status Refusal Reason influenza virus vaccine, inactivated 02/19/19 Given influenza virus vaccine, inactivated1 01/10/17 Given influenza virus vaccine, inactivated 05/02/15 Given pneumococcal 23-valent vaccine 10/03/17 Given tetanus/diphtheria/pertussis, acel(Tdap) 10/03/17 Given Influenza Inactive (IM) (oldterm)2 12/18/08 Given Influenza Inactive (IM) (oldterm)3 03/25/08 Given Tet/Diphth/Acel, Pertussis (oldterm)4 03/25/08 Given 1Result Comment: [01/10/2017] [id number] Note: VIS GIVEN 11/19/083Admin Note: vis [id number] Note: vis given Medications acetaminophen 325 mg oral tablet 650 mg, 2, tablet, By Mouth, 4 times a day, PRN, # 16 tablet, Refills 0, Tot. Refills 0, Maintenance, as needed for pain, 06/12/21 21:45:00 EST, Route to Pharmacy Electronically, [facility]/pharmacy #[id number], Partial fill upon patient request if the prescriptio... Start Date: 06/12/21 Status: Orderedacetaminophen 650 mg oral tablet, extended release 1 tablet = 650 mg, By Mouth, Every 8 hours, PRN as needed for pain, # 60 tablet, 0 Refills, Maintenance, 06/06/21 21:01:00 EST, ER Tablet, [facility] [...] [id number], 150, cm, 03/23/21 13:56:00 EST, He... [...] Refills, Maintenance, 06/03/21 15:21:00 EST, Gel, [facility]/pharmacy #[id number], 150, cm, 06/03/21 13:32:00 EST, Height Start Date: 06/03/21 Stop Date: 06/17/21 Status: Ordereddocusate sodium 100 mg oral capsule 100 mg, 1, capsule, By Mouth, 2 times a day, PRN, # 50 capsule, Refills 6, Tot. Refills 6, Maintenance, for constipation, 09/21/18 9:49:50 EDT, Route to Pharmacy Electronically, [id number], [facility]/pharmacy #[id number] Start Date: 09/21/18 Status: Orderedergocalciferol 78118 iu oral capsule 50,000 International_Units, 1, capsule, By Mouth, Every week, take with oily food or milk, # 13 capsule, Refills 0, Tot. Refills 0, Maintenance, 01/18/19 15:18:55 EDT, Route to Pharmacy Electronically, [id number], [facility] Start Date: 01/18/19 Stop Date: 04/18/19 [...] Gm, 2 Refills, Maintenance, 09/21/18 9:51:40 EDT, [place], 2 sprays Nares, Both Daily in AM,x30 days Start Date: 09/21/18 Stop Date: 12/20/18 Status: OrderedFLUoxetine 20 mg oral capsule 20 mg, 1, capsule, By Mouth, Daily, # 90 capsule, Refills 0, Tot. Refills 0, Maintenance, 02/26/21 15:21:00 EST, [id number] Partial fill upon patient request if [...] 21:01:00 EST, [id number], Partial fill upon patient request if the prescription is for a schedule II op... Start Date: 06/06/21 Status: OrderedLidoderm 5% film 1 patch, Topically, Daily, remove patches after 12 hours and leave off for 12 hours before replacing. You may apply 1-2 patches to the area., # 30 patch, 0 Refills, Maintenance, 06/12/21 21:45:00 EST, [facility]/pharmacy #[id number], Partial fill upon patient req... Start Date: 06/12/21 Status: Orderedlosartan 50 mg oral tablet 50 mg, 1, tablet, By Mouth, Daily, # 30 tablet, Refills 5, Tot. Refills 5, Maintenance, 04/06/21 15:22:00 EST, Route to Pharmacy Electronically, [facility]/pharmacy #[id number], 150, cm, 03/23/21 13:56:00 EST, Height Start Date: 04/06/21 Status: Orderedmelatonin 3 mg oral tablet 2 tablet = 6 mg, By Mouth, Daily at bedtime, PRN for insomnia, # 60 tablet, 1 Refills, Acute 09/23/21 15:07:00 EDT, 07/24/21 15:07:00 EDT, Tablet, [facility], 150, cm, 07/16/21 13:22:00EDT, Height, 96.8, kg, 06/12/21 22:20:00 EST, Dry... Start Date: 07/24/21 Stop Date: 09/23/21 Status: OrderedMiraLax oral powder for reconstitution = 17 Gm, By Mouth, Daily, dissolve in water before taking, # 255 Gm, 0 Refills, Maintenance, 07/02/21 22:10:00 EDT, REC Powder, [facility]/pharmacy #[id number], [...] Maintenance, :03:26 EDT, Route to Pharmacy Electronically, [id number], [facility]/pharmacy #[id number] Start Date: 09/28/18 Stop Date: 09/23/19 Status: OrderedVitamin C 500 mg oral tablet 1 tablet = 500 mg, By Mouth, Daily, # 90 tablet, 0 Refills, Maintenance, 07/02/21 15:01:00 EDT, Tablet, [facility]/pharmacy [...] Refills, Maintenance, 07/02/21 15:09:00 EDT, Capsule, [id number], Partial fill upon patient request if the [...]
--- OUTSIDE RECORDS SUMMARY | 2022-02-01 23:51 | XMS_ITS | Continuity of Care Document ---
:1970 Author Organization [facility] Address [address] [place] [id number]- Care Team Providers Name Role Phone Carlos Michelle DO Primary Care Physician Encounter [facility] [place] Date(s): 03/16/21 - 04/15/21 [facility] [address] [place] [id number] Allergies, Adverse Reactions, Alerts Substance Reaction [...] Pertussis (oldterm)4 03/25/08 Given 1Result Comment: [01/10/2017] [id number] Note: VIS GIVEN 11/19/083Admin Note: vis [id number] Note: vis given Medications betamethasone topical dipropionate [...] EST, Route to Pharmacy Electronically, [facility]/pharmacy #[id number], 150, cm, 03/23/21 13:56:00 EST, [...] 09/21/18 9:49:50 EDT, Route to Pharmacy Electronically, [id number], [facility]/pharmacy #[id number] Start Date: 09/21/18 Status: Orderedergocalciferol 96895 iu oral capsule 50,000 International_Units, 1, capsule, By Mouth, Every week, take with oily food or milk, # 13 capsule, Refills 0, Tot. Refills 0, Maintenance, 01/18/19 15:18:55 EDT, Route to Pharmacy Electronically, [id number], [facility]/pharmac... Start Date: 01/18/19 Stop Date: 04/18/19 [...] 2 Refills, Maintenance, 09/21/18 9:51:40 EDT, [place], 2 sprays Nares, Both Daily in AM,x30 days Start Date: 09/21/18 Stop Date: 12/20/18 Status: OrderedFLUoxetine 20 mg oral capsule 20 mg, 1, capsule, By Mouth, Daily, # 90 capsule, Refills 0, Tot. Refills 0, Maintenance, 02/26/21 15:21:00 EST, Route to Pharmacy Electronically, [facility]/pharmacy #[id number], Partial fill upon patient request if the prescription is for a schedule II opioid drConnie.. Start Date: 02/26/21 Status: Orderedfluticasone CFC free [...] EST, Route to Pharmacy Electronically, [facility]/pharmacy #[id number], 150, cm, 03/23/21 13:56:00 EST, Height Start Date: 04/06/21 Status: Orderednaproxen 250 mg oral tablet See Instructions, # 60 tablet, TAKE 1 TABLET BY MOUTH TWICE A DAY, [facility]/pharmacy #[id number] Start Date: 01/01/19 Status: OrderedProAir HFA 90 mcg/inh inhalation aerosol with adapter 2, puffs, Inhalation, 4 times a day, PRN, # 2 each, Refills 3, Tot. Refills 3, Maintenance, 199:03:26 EDT, Route to Pharmacy Electronically, [id number], [facility]/pharmacy #[id number] Start Date: 09/28/18 Stop Date: [...]
--- OUTSIDE RECORDS SUMMARY | 2022-02-01 23:51 | XMS_ITS | Continuity of Care Document ---
:1970 Author Organization [facility] Address [address] [place] [address]- Care Team Providers Name Role Phone Carlos Michelle DO Primary Care Physician [facility]counter [facility] Date(s): 03/28/20 - 04/27/20 [facility] [address] [place] [id number] Allergies, Adverse Reactions, Alerts Substance Reaction [...] Pertussis (oldterm)4 03/25/08 Given 1Result Comment: [01/10/2017] [id number] Note: VIS GIVEN 11/19/083Admin Note: vis [id number] Note: vis given Medications betamethasone topical dipropionate [...] 04/16/20 23:31:00 EST, Route to Pharmacy Electronically, [facility]/pharmacy #[id number], 150, cm, 02/21/20 9:34:00 EST, [...] 09/21/18 9:49:50 EDT, Route to Pharmacy Electronically, [id number], [facility]/pharmacy #[id number] Start Date: 09/21/18 Status: Orderedergocalciferol 15036 iu oral capsule 50,000 International_Units, 1, capsule, By Mouth, Every week, take with oily food or milk, # 13 capsule, Refills 0, Tot. Refills 0, Maintenance, 01/18/19 15:18:55 EDT, Route to Pharmacy Electronically, [id number], [facility]/pharmac... Start Date: 01/18/19 [...] Gm, 2 Refills, Maintenance, 09/21/18 9:51:40 EDT, [place], 2 sprays Nares, Both Daily in AM,x30 [...] 03/03/20 18:11:00 EST, Route to Pharmacy Electronically, [facility]/pharmacy #[id number], 150, cm, 02/21/20 9:34:00 EST, Height, 96, kg, 10/14/18 15:53:00 EDT, Dry Weight Start Date: 03/03/20 Status: Orderedmelatonin 3 mg oral tablet 2 tablet = 6 mg, By Mouth, Daily at bedtime, PRN for insomnia, # 60 tablet, 1 Refills, Acute 05/15/20 15:55:00 EST, 06/07/19 15:55:00 EST, Tablet, [facility]/pharmacy #[id number], 150, cm, 06/07/19 15:22:00 EST, [...] Maintenance, 199:03:26 EDT, Route to Pharmacy Electronically, [id number], [facility]/pharmacy #[id number] Start Date: [...]
--- OUTSIDE RECORDS SUMMARY | 2022-02-01 23:51 | XMS_ITS | Continuity of Care Document ---
:1970 Author Organization [facility] Address [address] [place] [address]- Care Team Providers Name Role Phone Carlos Michelle DO Primary Care Physician [facility]counter [facility] Date(s): 07/10/21 - 08/09/21 [facility] [address] [place] [id number] Allergies, Adverse Reactions, Alerts No Known [...] Pertussis (oldterm)4 03/25/08 Given 1Result Comment: [01/10/2017] [id number] Note: VIS GIVEN 11/19/083Admin Note: vis [id number] Note: vis given Medications acetaminophen 325 mg oral tablet 650 mg, 2, tablet, By Mouth, 4 times a day, PRN, # 16 tablet, Refills 0, Tot. Refills 0, Maintenance, as needed for pain, 06/12/21 21:45:00 EST, Route to Pharmacy Electronically, [facility]/pharmacy #[id number], Partial fill upon patient request if the prescriptio... Start Date: 06/12/21 Status: Orderedacetaminophen 650 mg oral tablet, extended release 1 tablet = 650 mg, By Mouth, Every 8 hours, PRN as needed for pain, # 60 tablet, 0 Refills, Maintenance, 06/06/21 21:01:00 EST, ER Tablet, [facility]/pharmacy #[id number], Partial fill upon patient [...] 18:10:00 EST, Tablet, [facility]/pharmacy #[id number], 150, cm, 02/21/20 9:34:00 EST, Height, 96, kg, 10/14/18 15:53:00 EDT, Dry Weight Start Date: 03/03/20 Status: Orderedchlorthalidone 25 mg oral tablet 25 mg, 1, tablet, By Mouth, Daily, Need labwork drawn before refills able to be given, # 30 tablet, Refills 5, Tot. Refills 5, Maintenance, 04/06/21 15:22:00 EST, Route to Pharmacy Electronically, [facility]/pharmacy #[id number], 150, cm, 03/23/21 13:56:00 [...] 0 Refills, Maintenance, 06/03/21 15:21:00 EST, Gel, [facility]/pharmacy #[id number], 150, cm, 06/03/21 13:32:00 EST, Height Start Date: 06/03/21 Stop Date: 06/17/21 Status: Ordereddocusate sodium 100 mg oral capsule 100 mg, 1, capsule, By Mouth, 2 times a day, PRN, # 50 capsule, Refills 6, Tot. Refills 6, Maintenance, for constipation, 09/21/18 9:49:50 EDT, Route to Pharmacy Electronically, [id number], [facility]/pharmacy #[id number] Start Date: 09/21/18 Status: Orderedergocalciferol 66576 iu oral capsule 50,000 International_Units, 1, capsule, By Mouth, Every week, take with oily food or milk, # 13 capsule, Refills 0, Tot. Refills 0, Maintenance, 01/18/19 15:18:55 EDT, Route to Pharmacy Electronically, [id number], [facility] Start Date: 01/18/19 Stop Date: 04/18/19 [...] Gm, 2 Refills, Maintenance, 09/21/18 9:51:40 EDT, [place], 2 sprays Nares, Both Daily in AM,x30 days Start Date: 09/21/18 Stop Date: 12/20/18 Status: OrderedFLUoxetine 20 mg oral capsule 20 mg, 1, capsule, By Mouth, Daily, # 90 capsule, Refills 0, Tot. Refills 0, Maintenance, 02/26/21 15:21:00 EST, [id number] fill upon patient request [...] 06/06/21 21:01:00 EST, [id number] Partial fill upon patient request if the prescription is for a schedule II op... Start Date: 06/06/21 Status: OrderedLidoderm 5% film 1 patch, Topically, Daily, remove patches after 12 hours and leave off for 12 hours before replacing. You may apply 1-2 patches to the area., # 30 patch, 0 Refills, Maintenance, 06/12/21 21:45:00 EST, [facility]/pharmacy #[id number], Partial fill upon patient req... Start Date: 06/12/21 Status: Orderedlosartan 50 mg oral tablet 50 mg, 1, tablet, By Mouth, Daily, # 30 tablet, Refills 5, Tot. Refills 5, Maintenance, 04/06/21 15:22:00 EST, Route to Pharmacy Electronically, [facility]/pharmacy #[id number], 150, cm, 03/23/21 13:56:00 EST, Height Start Date: 04/06/21 Status: Orderedmelatonin 3 mg oral tablet 2 tablet = 6 mg, By Mouth, Daily at bedtime, PRN for insomnia, # 60 tablet, 1 Refills, Acute 09/23/21 15:07:00 EDT, 07/24/21 15:07:00 EDT, Tablet, [facility], 150, cm, 07/16/21 13:22:00EDT, Height, 96.8, kg, 06/12/21 22:20:00 EST, Dry... Start Date: 07/24/21 Stop Date: 09/23/21 Status: OrderedMiraLax oral powder for reconstitution = 17 Gm, By Mouth, Daily, dissolve in water before taking, # 255 Gm, 0 Refills, Maintenance, 07/02/21 22:10:00 EDT, REC Powder, [facility]/pharmacy #[id number], Partial fill upon patient request if the prescriptionis for a schedule II opioid drug., 17 Gm By Mouth... Start Date: 07/02/21 Status: Orderednaproxen 250 mg oral tablet See Instructions, # 60 tablet, TAKE 1 TABLET BY MOUTH TWICE A DAY, [facility]/pharmacy #[id number] Start Date: 01/01/19 Status: OrderedProAir HFA 90 mcg/inh inhalation aerosol with adapter 2, puffs, Inhalation, 4 times a day, PRN, # 2 each, Refills 3, Tot. Refills 3, Maintenance, :03:26 EDT, Route to Pharmacy Electronically, [id number], [facility]/pharmacy #[id number] Start Date: 09/28/18 Stop Date: 09/23/19 Status: OrderedVitamin C 500 mg oral tablet 1 tablet = 500 mg, By Mouth, Daily, # 90 tablet, 0 Refills, Maintenance, 07/02/21 15:01:00 EDT, Tablet, [facility]/pharmacy #[id number], Partial fill upon patient [...] Refills, Maintenance, 07/02/21 15:09:00 EDT, Capsule, [id number], Partial fill upon patient request if the [...]
--- OUTSIDE RECORDS SUMMARY | 2022-02-01 23:51 | XMS_ITS | Continuity of Care Document ---
:1970 Author Organization [facility] Address [address] [place] [id number]- Care Team Providers Name Role Phone Carlos Michelle DO Primary Care Physician [facility] Date(s): 07/28/20 - 08/27/20 [facility] [address] [place] [id number] Allergies, Adverse Reactions, Alerts [...] Pertussis (oldterm)4 03/25/08 Given 1Result Comment: [01/10/2017] [id number] Note: VIS GIVEN 11/19/083Admin Note: vis [id number] Note: vis given Medications betamethasone topical dipropionate [...] 09/21/18 9:49:50 EDT, Route to Pharmacy Electronically, [id number], [facility]/pharmacy #[id number] Start Date: 09/21/18 Status: Orderedergocalciferol 21476 iu oral capsule 50,000 International_Units, 1, capsule, By Mouth, Every week, take with oily food or milk, # 13 capsule, Refills 0, Tot. Refills 0, Maintenance, 01/18/19 15:18:55 EDT, Route to Pharmacy Electronically, [id number], [facility]/pharmac... Start Date: 01/18/19 Stop [...] Gm, 2 Refills, Maintenance, 09/21/18 9:51:40 EDT, [place], 2 sprays Nares, Both Daily in AM,x30 [...] Maintenance, 199:03:26 EDT, Route to Pharmacy Electronically, [id number], [facility]/pharmacy #[id number] Start Date: 09/28/18 [...]
--- OUTSIDE RECORDS SUMMARY | 2022-02-01 23:51 | XMS_ITS | Continuity of Care Document ---
:1970 Author Organization [facility] Address [address] [place] [id number]- Care Team Providers Name Role Phone Timo Srinivasan MD, Gary Disla Primary Care Physician Encounter [facility]BR [id number] Date(s): 01/20/22 - 01/21/[address] [address]- Discharge Disposition: A-D/C Home Attending Physician: Kevin Lockwood MD Admitting Physician: Kevin Lockwood MD Referring Physician: Not on Staff, Referring [...] Pertussis (oldterm)4 03/25/08 Given 1Result Comment: [01/10/2017] [id number] Note: VIS GIVEN 11/19/083Admin Note: vis [id number] Note: vis given Medications acetaminophen 325 mg oral tablet 650 mg, 2, tablet, By Mouth, 4 times a day, PRN, # 16 tablet, Refills 0, Tot. Refills 0, Maintenance, as needed for pain, 06/12/21 21:45:00 EST, Route to Pharmacy Electronically, [facility]/pharmacy #[id number], Partial fill upon patient request if the prescriptio... Start Date: 06/12/21 Status: Orderedacetaminophen 650 mg oral tablet, extended release 1 tablet = 650 mg, By Mouth, Every 8 hours, PRN as needed for pain, # 60 tablet, 0 Refills, Maintenance, 06/06/21 21:01:00 EST, [facility] Table[id number] Partial fill upon patient request [...] 18:10:00 EST, Tablet, [id number], 150, cm, 02/21/20 9:34:00 EST, Height, 96, kg, 10/14/18 15:53:00 EDT, Dry Weight Start Date: 03/03/20 Status: Orderedchlorthalidone 25 mg oral tablet 25 mg, 1, tablet, By Mouth, Daily, Need labwork drawn before refills able to be given, # 30 tablet, Refills 5, Tot. Refills 5, Maintenance, 04/06/21 15:22:00 EST, [facility], [id number], 150, cm, 03/23/21 13:56:00 EST, [...] 0 Refills, Maintenance, 06/03/21 15:21:00 EST, Gel, [facility]/pharmacy #[id number], 150, cm, 06/03/21 13:32:00 EST, Height Start Date: 06/03/21 Stop Date: 06/17/21 Status: Ordereddocusate sodium 100 mg oral capsule 100 mg, 1, capsule, By Mouth, 2 times a day, PRN, # 50 capsule, Refills 6, Tot. Refills 6, Maintenance, for constipation, 09/21/18 9:49:50 EDT, Route to Pharmacy Electronically, [id number], [facility]/pharmacy #[id number] Start Date: 09/21/18 Status: Orderedergocalciferol 22113 iu oral capsule 50,000 International_Units, 1, capsule, By Mouth, Every week, take with oily food or milk, # 13 capsule, Refills 0, Tot. Refills 0, Maintenance, 01/18/19 15:18:55 EDT, Route to Pharmacy Electronically, [id number], [facility]/pharmac... Start Date: 01/18/19 Stop Date: 04/18/19 Status: Orderedfamotidine 20 mg oral tablet 20 mg, 1, tablet, By Mouth, 2 times a day, # 60 tablet, Refills 2, Tot. Refills 2, Maintenance, 12/07/21 17:27:00 EDT, Route to Pharmacy Electronically, [facility]/pharmacy #[id number], Partial fill upon patient request if the prescription is for a schedule II opi... Start Date: 12/07/21 Status: Orderedferrous sulfate 325 mg oral enteric coated tablet 325 mg, 1, tablet, By Mouth, Daily, # 45 tablet, Refills 3, Tot. Refills 3, Maintenance, 07/02/21 15:01:00 EDT, Route to Pharmacy Electronically, [facility]/pharmacy #[id number], Partial fill upon patient request if the prescription is for a schedule II opioid jarrett... Start Date: 07/02/21 Status: OrderedFlonase 50 mcg/inh nasal spray 2 sprays, Nares, Both, Daily in AM, # 16 Gm, 2 Refills, Maintenance, 09/21/18 9:51:40 EDT, [place], 2 sprays Nares, Both Daily in AM,x30 days Start Date: 09/21/18 Stop Date: 12/20/18 Status: OrderedFLUoxetine 20 mg oral capsule 20 mg, 1, capsule, By Mouth, Daily, # 90 capsule, Refills 0, Tot. Refills 0, Maintenance, 02/26/21 15:21:00 EST, Route to Pharmacy Electronically, [facility]/pharmacy #[id number], Partial fill upon patient request [...] 06/06/21 21:01:00 EST, Route to Pharmacy Electronically, [facility]/pharmacy #[id number], Partial fill upon patient request if the prescription is for a schedule II op... Start Date: 06/06/21 Status: OrderedLidoderm 5% film 1 patch, Topically, Daily, remove patches after 12 hours and leave off for 12 hours before replacing. You may apply 1-2 patches to the area., # 30 patch, 0 Refills, Maintenance, 06/12/21 21:45:00 EST, [facility]/pharmacy #[id number], Partial fill upon patient req... Start Date: 06/12/21 Status: Orderedlosartan 50 mg oral tablet 50 mg, 1, tablet, By Mouth, Daily, # 30 tablet, Refills 5, Tot. Refills 5, Maintenance, 04/06/21 15:22:00 EST, Route to Pharmacy Electronically, [facility]/pharmacy #[id number], 150, cm, 03/23/21 13:56:00 EST, Height Start Date: 04/06/21 Status: OrderedMiraLax oral powder for reconstitution = 17 Gm, By Mouth, Daily, dissolve in water before taking, # 255 Gm, 0 Refills, Maintenance, 07/02/21 22:10:00 EDT, REC Powder, [facility]/pharmacy #[id number], Partial fill upon patient request if the prescriptionis for a schedule II opioid drug., 17 Gm By Mouth... Start Date: 07/02/21 Status: Orderednaproxen 250 mg oral tablet See Instructions, # 60 tablet, TAKE 1 TABLET BY MOUTH TWICE A DAY, [facility]/pharmacy #[id number] Start Date: 01/01/19 Status: OrderedProAir HFA 90 mcg/inh inhalation aerosol with adapter 2, puffs, Inhalation, 4 times a day, PRN, # 2 each, Refills 3, Tot. Refills 3, Maintenance, :03:26 EDT, Route to Pharmacy Electronically, [id number], [facility]/pharmacy #[id number] Start Date: 09/28/18 Stop Date: 09/23/19 Status: OrderedVitamin C 500 mg oral tablet 1 tablet = 500 mg, By Mouth, Daily, # 90 tablet, 0 Refills, Maintenance, 07/02/21 15:01:00 EDT, Tablet, [facility]/pharmacy #[id number], Partial fill upon patient request [...] 0 Refills, Maintenance, 07/02/21 15:09:00 EDT, Capsule, [facility]/pharmacy #[id number], Partial fill upon patient request [...] Active Severe obesity Confirmed Active 1heavy periods Results Radiology Reports Exam Date Time Procedure Performing Provider Status 01/21/22 1:13 AM Chest 2 Views Frontal and Lat Lula Alva; Auth (Verified) Notes:(Chest 2 Views Frontal and Lat) Reason For Exam: Chest Pain;Other:RESULT: Chest 2 Views Frontal and Lat Chest 2 Views Frontal and Lat Hx of Present Illness: c o palpatations and sob x 3 days states from high blood pressure meds; Reason: Other:; Chest Pain; Clinical Question(s): Other: COMPARISON: None. FINDINGS: The examination is somewhat degraded secondary to patient body habitus. LINES AND TUBES: None. LUNGS AND PLEURA: Clear lungs. Normal pulmonary vascularity. No pleural effusion. No pneumothorax. HEART, MEDIASTINUM AND ARUN: Heart is normal in size. Normal mediastinal and hilar contour. BONES AND SOFT TISSUES: No acute abnormality. Minimal multilevel degenerative changes in the spine. IMPRESSION: No acute abnormality. WSN: [id number] Ordering Physician: Vasquez Santos Dictated By: Howie Duarte MD Dictated Date/Time: 01/21/22 7:39 am Reviewed By: Howie Duarte MD Signed By: Howie Duarte MD Signed Date/Time: 01/21/22 7:39 am Transcribed By: NOLAN Transcribed Date/Time: 01/21/22 7:37 am Vital Signs Most recent to oldest [Reference Range]: 1 2 Height 150 cm 150 cm (01/20/22 11:04 PM) (01/20/22 11:03 PM) Weight 97.4 kg 97.4 kg (01/20/22 11:04 PM) (01/20/22 11:03 PM) Oxygen Saturation [94-100 %] 100 % 97 % (01/21/22 1:00 AM) (01/20/22 11:03 PM) Pulse Rate [55-90 bpm] 87 bpm 91 bpm (01/21/22 1:00 AM) *H* (01/20/22:03 PM) Body Mass Index [18.5-24.99 kg/m2] 43.29 kg/m2 *>HHI* (01/20/22 11:03 PM) Blood Pressure [90-138/55-84 mm Hg] 174/79 mm Hg 174/ 83 mm Hg *H* *H* (01/21/22 1:00 AM) (01/20/22 11:03 PM) Respiratory Rate [16-30 br/min] 18 br/min 20 br/mi n (01/21/22 1:00 AM) (01/20/22 11:03 PM) Temperature [96.8-100.4 DegF] 97.9 DegF (01/20/22 11:03 PM) Mode of Delivery (Oxygen) Room air Room air (01/21/22 1:00 AM) (01/20/22 11:03 PM) Temperature Route Oral (01/20/22 11:03 PM) Dry Weight 97.4 kg 97.4 kg (01/20/22 11:04 PM) (01/20/22 11:03 PM) Weight Obtained Via Standing scale (01/20/22 11:03 PM) Dry Weight Obtained Via Standing scale (01/20/22 11:03 PM) Social History Social History Type Response Smoking Status Current some day smoker; Typ e: Cigarettes; Previous treatment: None; Interested in cessation: Yes; Tobacco use times per day: 3; Number of years: 30; Started at age: 16; entered on: 10/03/17 Sex Female Note BHSPowerscribe , CIS S: TRANSCRIHowie Mas MD: VERIFY Event Display: Result: Authored Date: [id number] Chest 2 Views Frontal and Lat Hx of Present Illness: c o palpatations and sob x 3 days states from high blood pressure meds; Reason: Other:; Chest Pain; Clinical Question(s): Other: COMPARISON: None. FINDINGS: The examination is somewhat degraded secondary to patient body habitus. LINES AND TUBES: None. LUNGS AND PLEURA: Clear lungs. Normal pulmonary vascularity. No pleural effusion. No pneumothorax. HEART, MEDIASTINUM AND ARUN: Heart is normal in size. Normal mediastinal and hilar contour. BONES AND SOFT TISSUES: No acute abnormality. Minimal multilevel degenerative changes in the spine. IMPRESSION: No acute abnormality. WSN: [id number] Ordering Physician: Vasquez Santos Dictated By: Howie Duarte MD Dictated Date/Time: 01/21/22 7:39 am Reviewed By: Howie Duarte MD Signed By: Howie Duarte MD Signed Date/Time: 01/21/22 7:39 am Transcribed By: NOLAN Transcribed Date/Time: 01/21/22 7:37 am Patient Care team information PersonnelName: Timo Srinivasan MD, Gary Disla Address: Address: [address] [place] [address]
--- OUTSIDE RECORDS SUMMARY | 2022-02-01 23:51 | XMS_ITS | Continuity of Care Document ---
:1970 Author Organization [facility] Address [address] [place] [address]- Care Team Providers Name Role Phone Carlos Michelle DO Primary Care Physician Encounter [facility] Date(s): 07/28/20 - 09/17/20 [facility] [address] [place] [id number] Attending Physician: Nain Umaña MD Admitting [...] Pertussis (oldterm)4 03/25/08 Given 1Result Comment: [01/10/2017] [id number] Note: VIS GIVEN 11/19/083Admin Note: vis [id number] Note: vis given Medications betamethasone topical dipropionate 0.05% cream 1 application, Topically, Daily, # 45 Gm, 1 Refills, Maintenance, 03/30/18 16:19:01 EST, Cream, 1 application Topically Daily Start Date: 03/30/18 Status: Orderedcetirizine 10 mg oral tablet 1 tablet = 10 mg, By Mouth, Daily, # 30 tablet, 0 Refills, Maintenance, 03/03/20 18:10:00 EST, Tablet, [facility]/pharmacy #[id number], 150, cm, 02/21/20 9:34:00 EST, Height, 96, kg, 10/14/18 15:53:00 EDT, Dry Weight Start Date: 03/03/20 Status: Orderedchlorthalidone 25 mg oral tablet 25 mg, 1, tablet, By Mouth, Daily, Need labwork drawn before refills able to be given, # 30 tablet, Refills 0, Tot. Refills 0, Maintenance, 06/02/20 13:37:00 EST, [id number], cm, 02/21/20 9:34:00 EST, [...] 09/21/18 9:49:50 EDT, Route to Pharmacy Electronically, [id number], [facility]/pharmacy #[id number] Start Date: 09/21/18 Status: Orderedergocalciferol 88752 iu oral capsule 50,000 International_Units, 1, capsule, By Mouth, Every week, take with oily food or milk, # 13 capsule, Refills 0, Tot. Refills 0, Maintenance, 01/18/19 15:18:55 EDT, Route to Pharmacy Electronically, [id number], [facility]/pharmac... Start Date: 01/18/19 Stop Date: 04/18/19 Status: [...] Gm, 2 Refills, Maintenance, 09/21/18 9:51:40 EDT, [place], 2 sprays Nares, Both Daily in AM,x30 [...] 18:11:00 EST, Route to Pharmacy Electronically, [facility]/pharmacy #[id number], 150, cm, 02/21/20 9:34:00 EST, Height, 96, kg, 10/14/18 15:53:00 EDT, Dry Weight Start Date: 03/03/20 Status: Orderednaproxen 250 mg oral tablet See Instructions, # 60 tablet, TAKE 1 TABLET BY MOUTH TWICE A DAY, [facility]/pharmacy #[id number] Start Date: 01/01/19 Status: OrderedProAir HFA 90 mcg/inh inhalation aerosol with adapter 2, puffs, Inhalation, 4 times a day, PRN, # 2 each, Refills 3, Tot. Refills 3, Maintenance, 199:03:26 EDT, Route to Pharmacy Electronically, [id number], [facility]/pharmacy #[id number] Start Date: 09/28/18 Stop Date: [...]
--- OUTSIDE RECORDS SUMMARY | 2022-02-01 23:51 | XMS_ITS | Continuity of Care Document ---
:1970 Author Organization [facility] Address [address] [place] [address]- Care Team Providers Name Role Phone Carlos Michelle DO Primary Care Physician Encounter [facility] Date(s): 04/28/21 - 05/05/21 [facility] [address], [place] [address] Attending Physician: Luis Antonio Nash MD Referring [...] Pertussis (oldterm)4 03/25/08 Given 1Result Comment: [01/10/2017] [id number] Note: VIS GIVEN 11/19/083Admin Note: vis [id number] Note: vis given Medications betamethasone topical dipropionate [...] 04/06/21 15:22:00 EST, [id number], cm, 03/23/21 13:56:00 EST, [...] 09/21/18 9:49:50 EDT, Route to Pharmacy Electronically, [id number], [facility]/pharmacy #[id number] Start Date: 09/21/18 Status: Orderedergocalciferol 91609 iu oral capsule 50,000 International_Units, 1, capsule, By Mouth, Every week, take with oily food or milk, # 13 capsule, Refills 0, Tot. Refills 0, Maintenance, 01/18/19 15:18:55 EDT, Route to Pharmacy Electronically, [id number], [facility]/pharmac... Start Date: 01/18/19 Stop Date: 04/18/19 Status: Orderedferrous sulfate 325 mg oral enteric coated tablet 325 mg, 1, tablet, By Mouth, Every other day, # 45 tablet, Refills 3, Tot. Refills 3, Maintenance, 04/22/21 10:25:00 EST, Route to Pharmacy Electronically, [facility]/pharmacy #[id number], Partial fill upon patientrequest if [...] Gm, 2 Refills, Maintenance, 09/21/18 9:51:40 EDT, [place], 2 sprays Nares, Both Daily in AM,x30 days Start Date: 09/21/18 Stop Date: 12/20/18 Status: OrderedFLUoxetine 20 mg oral capsule 20 mg, 1, capsule, By Mouth, Daily, # 90 capsule, Refills 0, Tot. Refills 0, Maintenance, 02/26/21 15:21:00 EST, Route to Pharmacy Electronically, [facility]/pharmacy #[id number], Partial fill upon patient request [...] 04/06/21 15:22:00 EST, Route to Pharmacy Electronically, [facility]/pharmacy #[id number], 150, cm, 03/23/21 13:56:00 EST, Height Start Date: 04/06/21 Status: Orderednaproxen 250 mg oral tablet See Instructions, # 60 tablet, TAKE 1 TABLET BY MOUTH TWICE A DAY, [facility]/pharmacy #[id number] Start Date: 01/01/19 Status: OrderedProAir HFA 90 mcg/inh inhalation aerosol with adapter 2, puffs, Inhalation, 4 times a day, PRN, # 2 each, Refills 3, Tot. Refills 3, Maintenance, 199:03:26 EDT, Route to Pharmacy Electronically, [id number], [facility]/pharmacy #[id number] Start Date: 09/28/18 Stop Date: [...] 3 Refills, Maintenance, 04/22/21 10:25:00 EST, Tablet, [facility]/pharmacy #[id number], Partial fill upon patient request [...]
--- OUTSIDE RECORDS SUMMARY | 2022-02-01 23:51 | XMS_ITS | Continuity of Care Document ---
:1970 Author Organization [facility] Address [address] [place] [address]- Care Team Providers Name Role Phone Carlos Michelle DO Primary Care Physician Encounter [facility] Date(s): 02/12/20 - 03/17/[address] [address] Attending Physician: Reymundo Dawson MD Admitting Physician: Reymundo Dawson MD Referring Physician: Reymundo Dawson MD Allergies, Adverse Reactions, Alerts Substance Reaction [...] Pertussis (oldterm)4 03/25/08 Given 1Result Comment: [01/10/2017] [id number] Note: VIS GIVEN 11/19/083Admin Note: vis [id number] Note: vis given Medications betamethasone topical dipropionate 0.05% cream 1 application, Topically, Daily, # 45 Gm, 1 Refills, Maintenance, 03/30/18 16:19:01 EST, Cream, 1 application Topically Daily Start Date: 03/30/18 Status: Orderedcetirizine 10 mg oral tablet 1 tablet = 10 mg, By Mouth, Daily, # 30 tablet, 0 Refills, Maintenance, 03/03/20 18:10:00 EST, Tablet, [facility]/pharmacy #[id number], 150, cm, 02/21/20 9:34:00 EST, Height, 96, kg, 10/14/18 15:53:00 EDT, Dry Weight Start Date: 03/03/20 Status: Orderedchlorthalidone 25 mg oral tablet 25 mg, 1, tablet, By Mouth, Daily, STOP HCTZ/Lisinopril and amlodipine, # 30 tablet, Refills 11, Tot. Refills 11, Maintenance, 04/02/19 13:09:00 EST, Route to Pharmacy Electronically, [facility]/pharmacy #[id number], 150, cm, 02/19/19 10:56:00 [...] 09/21/18 9:49:50 EDT, Route to Pharmacy Electronically, [id number], [facility]/pharmacy #[id number] Start Date: 09/21/18 Status: Orderedergocalciferol 52238 iu oral capsule 50,000 International_Units, 1, capsule, By Mouth, Every week, take with oily food or milk, # 13 capsule, Refills 0, Tot. Refills 0, Maintenance, 10/10/19 15:18:55 EDT, Route to Pharmacy Electronically, [id number], [facility]/pharmac... Start Date: 01/18/19 Stop Date: [...] 2 Refills, Maintenance, 09/21/18 9:51:40 EDT, [place], 2 sprays Nares, Both Daily in AM,x30 [...] 03/03/20 18:11:00 EST, Route to Pharmacy Electronically, [facility]/pharmacy #[id number], 150, cm, 02/21/20 9:34:00 EST, Height, 96, kg, 10/14/18 15:53:00 EDT, Dry Weight Start Date: 03/03/20 Status: Orderedmelatonin 3 mg oral tablet 2 tablet = 6 mg, By Mouth, Daily at bedtime, PRN for insomnia, # 60 tablet, 1 Refills, Acute 05/15/20 15:55:00 EST, 06/07/19 15:55:00 EST, Tablet, [facility]/pharmacy #[id number], 150, cm, 06/07/19 15:22:00 EST, Height, 96, kg, 10/14/18 15:53:00 EDT, Dry Weight Start Date: 06/07/19 Stop Date: 05/15/20 Status: Orderednaproxen 250 mg oral tablet See Instructions, # 60 tablet, TAKE 1 TABLET BY MOUTH TWICE A DAY, [facility]/pharmacy #[id number] Start Date: 01/01/19 Status: OrderedProAir HFA 90 mcg/inh inhalation aerosol with adapter 2, puffs, Inhalation, 4 times a day, PRN, # 2 each, Refills 3, Tot. Refills 3, Maintenance, 199:03:26 EDT, Route to Pharmacy Electronically, [id number], [facility]/pharmacy #[id number] Start Date: 09/28/18 Stop [...]
--- OUTSIDE RECORDS SUMMARY | 2022-02-01 23:51 | XMS_ITS | Continuity of Care Document ---
:1970 Author Organization [facility] Address [address] [place] [id number]- Care Team Providers Name Role Phone Carlos Michelle DO Primary Care Physician [place] [facility] [place]/[address] [id number] Attending Physician: Sanjana Green Admitting Physician: AdmSanjana [...] Pertussis (oldterm)4 03/25/08 Given 1Result Comment: [01/10/2017] [id number] Note: VIS GIVEN 11/19/083Admin Note: vis [id number] Note: vis given Medications acetaminophen 325 mg oral tablet 650 mg, 2, tablet, By Mouth, 4 times a day, PRN, # 16 tablet, Refills 0, Tot. Refills 0, Maintenance, as needed for pain, 06/12/21 21:45:00 EST, Route to Pharmacy Electronically, [facility]/pharmacy #[id number], Partial fill upon patient request if the prescriptio... Start Date: 06/12/21 Status: Orderedacetaminophen 650 mg oral tablet, extended release 1 tablet = 650 mg, By Mouth, Every 8 hours, PRN as needed for pain, # 60 tablet, 0 Refills, Maintenance, 06/06/21 21:01:00 EST, ER Tablet, [facility]/pharmacy #[id number], Partial fill upon patient request [...] 0 Refills, Maintenance, 03/03/20 18:10:00 EST, Tablet, [facility]/pharmacy #[id number], 150, cm, 02/21/20 9:34:00 EST, Height, 96, kg, 10/14/18 15:53:00 EDT, Dry Weight Start Date: 03/03/20 Status: Orderedchlorthalidone 25 mg oral tablet 25 mg, 1, tablet, By Mouth, Daily, Need labwork drawn before refills able to be given, # 30 tablet, Refills 5, Tot. Refills 5, Maintenance, 04/06/21 15:22:00 EST, Route to Pharmacy Electronically, [facility]/pharmacy #[id number], 150, cm, 03/23/21 13:56:00 EST, [...] 0 Refills, Maintenance, 06/03/21 15:21:00 EST, Gel, [facility]/pharmacy #[id number], 150, cm, 06/03/21 13:32:00 EST, Height Start Date: 06/03/21 Stop Date: 06/17/21 Status: Ordereddocusate sodium 100 mg oral capsule 100 mg, 1, capsule, By Mouth, 2 times a day, PRN, # 50 capsule, Refills 6, Tot. Refills 6, Maintenance, for constipation, 09/21/18 9:49:50 EDT, Route to Pharmacy Electronically, [id number], [facility]/pharmacy #[id number] Start Date: 09/21/18 Status: Orderedergocalciferol 55864 iu oral capsule 50,000 International_Units, 1, capsule, By Mouth, Every week, take with oily food or milk, # 13 capsule, Refills 0, Tot. Refills 0, Maintenance, 01/18/19 15:18:55 EDT, Route to Pharmacy Electronically, [id number], [facility]/pharmac... Start Date: 01/18/19 Stop Date: 04/18/19 Status: Orderedfamotidine 20 mg oral tablet 20 mg, 1, tablet, By Mouth, 2 times a day, # 60 tablet, Refills 0, Tot. Refills 0, Maintenance, 09/16/21 15:39:00 EDT, Route to Pharmacy Electronically, [facility]/pharmacy #[id number], Partial fill upon patient request if the prescription is for a schedule II opi... Start Date: 09/16/21 Status: Orderedferrous sulfate 325 mg oral enteric coated tablet 325 mg, 1, tablet, By Mouth, Daily, # 45 tablet, Refills 3, Tot. Refills 3, Maintenance, 07/02/21 15:01:00 EDT, Route to Pharmacy Electronically, [facility]/pharmacy #[id number], Partial fill upon patient request if the prescription is for a schedule II opioid jarrett... Start Date: 07/02/21 Status: OrderedFlonase 50 mcg/inh nasal spray 2 sprays, Nares, Both, Daily in AM, # 16 Gm, 2 Refills, Maintenance, 09/21/18 9:51:40 EDT, [place], 2 sprays Nares, Both Daily in AM,x30 days Start Date: 09/21/18 Stop Date: 12/20/18 Status: OrderedFLUoxetine 20 mg oral capsule 20 mg, 1, capsule, By Mouth, Daily, # 90 capsule, Refills 0, Tot. Refills 0, Maintenance, 02/26/21 15:21:00 EST, Route to Pharmacy Electronically, [facility]/pharmacy #[id number], Partial fill upon patient request [...] 06/06/21 21:01:00 EST, Route to Pharmacy Electronically, [facility]/pharmacy #[id number], Partial fill upon patient request if the prescription is for a schedule II op... Start Date: 06/06/21 Status: OrderedLidoderm 5% film 1 patch, Topically, Daily, remove patches after 12 hours and leave off for 12 hours before replacing. You may apply 1-2 patches to the area., # 30 patch, 0 Refills, Maintenance, 06/12/21 21:45:00 EST, [facility]/pharmacy #[id number], Partial fill upon patient req... Start Date: 06/12/21 Status: Orderedlosartan 50 mg oral tablet 50 mg, 1, tablet, By Mouth, Daily, # 30 tablet, Refills 5, Tot. Refills 5, Maintenance, 04/06/21 15:22:00 EST, Route to Pharmacy Electronically, [facility]/pharmacy #[id number], 150, cm, 03/23/21 13:56:00 EST, Height Start Date: 04/06/21 Status: OrderedMiraLax oral powder for reconstitution = 17 Gm, By Mouth, Daily, dissolve in water before taking, # 255 Gm, 0 Refills, Maintenance, 07/02/21 22:10:00 EDT, REC Powder, [facility]/pharmacy #[id number], Partial fill upon patient request if the prescriptionis for a schedule II opioid drug., 17 Gm By Mouth... Start Date: 07/02/21 Status: Orderednaproxen 250 mg oral tablet See Instructions, # 60 tablet, TAKE 1 TABLET BY MOUTH TWICE A DAY, [facility]/pharmacy #[id number] Start Date: 01/01/19 Status: OrderedProAir HFA 90 mcg/inh inhalation aerosol with adapter 2, puffs, Inhalation, 4 times a day, PRN, # 2 each, Refills 3, Tot. Refills 3, Maintenance, 199:03:26 EDT, Route to Pharmacy Electronically, [id number], [facility]/pharmacy #[id number] Start Date: 09/28/18 Stop Date: 09/23/19 Status: OrderedVitamin C 500 mg oral tablet 1 tablet = 500 mg, By Mouth, Daily, # 90 tablet, 0 Refills, Maintenance, 07/02/21 15:01:00 EDT, Tablet, [facility]/pharmacy #[id number], Partial fill upon patient request [...] 0 Refills, Maintenance, 07/02/21 15:09:00 EDT, Capsule, [facility]/pharmacy #[id number], Partial fill upon patient request [...]
--- OUTSIDE RECORDS SUMMARY | 2022-02-01 23:51 | XMS_ITS | Continuity of Care Document ---
:1970 Author Organization [facility] Address [address] [place] [id number]- Care Team Providers Name Role Phone Carlos Michelle DO Primary Care Physician Encounter [facility] Date(s): 04/16/20 - 05/16/20 [facility] [address] [place] [id number] Allergies, Adverse Reactions, Alerts [...] Pertussis (oldterm)4 03/25/08 Given 1Result Comment: [01/10/2017] [id number] Note: VIS GIVEN 11/19/083Admin Note: vis [id number] Note: vis given Medications betamethasone topical dipropionate [...] 04/16/20 23:31:00 EST, Route to Pharmacy Electronically, [facility]/pharmacy #[id number], 150, cm, 02/21/20 9:34:00 EST, Hei... [...] 09/21/18 9:49:50 EDT, Route to Pharmacy Electronically, [id number], [facility]/pharmacy #[id number] Start Date: 09/21/18 Status: Orderedergocalciferol 88679 iu oral capsule 50,000 International_Units, 1, capsule, By Mouth, Every week, take with oily food or milk, # 13 capsule, Refills 0, Tot. Refills 0, Maintenance, 01/18/19 15:18:55 EDT, Route to Pharmacy Electronically, [id number], [facility]/pharmac... Start Date: 01/18/19 Stop Date: 04/18/19 Status: [...] Gm, 2 Refills, Maintenance, 09/21/18 9:51:40 EDT, [place], 2 sprays Nares, Both Daily in AM,x30 [...] 03/03/20 18:11:00 EST, Route to Pharmacy Electronically, [facility]/pharmacy #[id number], 150, cm, 02/21/20 9:34:00 EST, Height, 96, kg, 10/14/18 15:53:00 EDT, Dry Weight Start Date: 03/03/20 Status: Orderednaproxen 250 mg oral tablet See Instructions, # 60 tablet, TAKE 1 TABLET BY MOUTH TWICE A DAY, [facility]/pharmacy #[id number] Start Date: 01/01/19 Status: OrderedProAir HFA 90 mcg/inh inhalation aerosol with adapter 2, puffs, Inhalation, 4 times a day, PRN, # 2 each, Refills 3, Tot. Refills 3, Maintenance, 199:03:26 EDT, Route to Pharmacy Electronically, [id number], [facility]/pharmacy #[id number] Start Date: 09/28/18 Stop Date: 09/23/19 [...]
[2022-02-02 00:04] VITALS: BP 167/72; PULSE 82; RESP 24; TEMP 37.1; O2SAT 97
--- NOTE | 2022-02-02 00:05 | PC.NURSE ---
pt a&o, no increase sob or chest pain. pt does not demonstrate any respiratory distress at this time. no traction. pt able to answer questions and speak in full sentence. Covid education given. Discharge reviewed. Pt verbalized understanding.
== END 2022-02-02 00:33 | disposition home or self-care (01) ==
PROVIDERS: Emergency Provider Student in an Organized Health Care Education/Training Program
DX: U07.1 COVID-19 (principal); J45.909 Unspecified asthma, uncomplicated
CPT/HCPCS: 71045; 87635; 99283; 99284

== ENCOUNTER 2022-02-09 18:39 | Emergency (ER) | payer OTHER, SELFPAY ==
--- NOTE | ~2022-02-09 | XR_ITS ---
EXAMINATION: XR CHEST CLINICAL INFORMATION: Cough COMPARISON: 02/01/2022 TECHNIQUE: Frontal view of the chest was obtained. FINDINGS: No significant abnormality is noted involving the heart, lungs, mediastinum, bony thorax or soft tissues. XR/XR chest 1V IMPRESSION: Unremarkable examination.
[2022-02-09 18:45] VITALS: BP 154/85; PULSE 105; RESP 16; O2SAT 97; BMI 50.5
[2022-02-09 22:49] VITALS: BP 140/86; PULSE 95; RESP 18; TEMP 37.2; O2SAT 97
[2022-02-09 23:23] LABS: COVID-19 Test Negative (Negative); IDNOW Serial# 16C4AD1C; Influenza A Negative (Negative); Influenza B2 Negative (Negative)
--- NOTE | 2022-02-10 01:20 | ED_ITS ---
HPI - SOB/Dyspnea General Chief Complaint: Dyspnea Stated Complaint: Sob Time Seen by Provider: 02/10/22 00:59 Source: patient Mode of arrival: ambulatory Limitations: no limitations History of Present Illness HPI Narrative: 52-year-old female who presents emergency department for evaluation wheezing, shortness of breath and nonproductive cough. The patient was diagnosed with COVID-19 on 02/01/2022 (symptoms started 2 days prior). The patient was not vaccinated for COVID-19. She did receive antibiotic treatment at [facility]. She states that she is continuing to have wheezing and feels short of breath. She also continues to have a nonproductive cough. She denied fever, chills, chest pain, nausea, vomiting or diarrhea. She is concerned that she is not getting better and she is continuing to wheeze so she came to the emergency department for evaluation. MD elicited complaint: shortness of breath and cough Pertinent past history: asthma Onset (ago): day(s) (9) Context: recent illness (COVID-19 diagnosis 02/01/2022) Timing: constant Severity: moderate Exacerbating factors: exertion and coughing Relieving factors: nothing Known history of: asthma Associated symptoms: cough and wheezing Treatment prior to arrival: none Related Data Previous Rx's Medication Instructions Recorded prednisone 20 mg tablet 40 mg PO DAILY #10 tabs 02/02/22 benzonatate 100 mg capsule 100 mg PO TID PRN cough #20 caps 02/10/22 prednisone 20 mg tablet 60 mg PO DAILY 5 days #15 tabs 02/10/22 Allergies Allergy/AdvReac Type Severity Reaction Status Date / Time No Known Allergies Allergy Unverified 12/27/19 15:09 [No Known Allergies*] Review of Systems Review of Systems: Yes all other systems are reviewed and are negative [facility] Past Medical History [facility] Narrative: Past medical history: Asthma, COVID-19 infection 02/01/2022. Social history: She smokes 4 cigarettes per day times 35 years. She denies alcohol use. She denies drug use. Social History Social History Patient Tobacco Use Status: Never used Tobacco Advance Directives: No Advance Directives Information Provided: No Physical Exam Vital Signs: Vital Signs: Last Vital Signs Temp 99.0 F 02/09/22 22:49 Pulse 95 02/09/22 22:49 Resp 18 02/09/22 22:49 BP 140/86 H 02/09/22 22:49 Pulse Ox 97 02/09/22 22:49 O2 Del Method 02/09/22 22:49 BMI result Body Mass Index 50.5 Const: General: cooperative and no acute distress Orientation/consciousness: oriented to person and oriented to place Limitations: no limitations HEENT: Head: Yes normal to inspection, Yes normocephalic and Yes atraumatic Ears: external ears normal General nose exam: Normal external nose present Face and sinus: Yes normal facial exam Mouth: Normal oral and palatal mucosa present Throat: Yes posterior oropharynx normal Eyes: General: appearance normal, both eyes and all related structures Pupils: Equal, round and reactive pupils present Neck: Neck: Yes normal visual inspection, Yes no lymphadenopathy, Yes trachea midline and Yes supple Chest: Chest palpation & inspection: normal inspection of the chest and normal palpation of entire chest wall Resp: Effort & Inspection: normal respiratory effort and able to speak in complete sentences Auscultation: wheezes Cardio: Rate: regular rate Rhythm: regular rhythm Heart sounds: S1 normal heart sound present, S2 normal heart sound present and no murmurs GI: Inspection: Yes normal to inspection Palpation (GI): Soft to palpation, nontender and no guarding Auscultation: normal bowel sounds : General: Yes no CVA tenderness Back/Spine/Pelvis: Back: no CVA tenderness Skin: General skin exam: no rashes or lesions noted Neuro: General: oriented to person and oriented to place Cranial nerves: Yes CN's II-XII intact bilaterally and Yes Equal, round and reactive pupils present Cognition (Neuro): normal cognition Motor exam (neuro): 5/5 motor strength present throughout Extrem: General: Yes normal to inspection Psych: Appearance: grossly normal Speech and movement: Normal speech and movement present Affect: normal affect Attitude: cooperative Thought process: Normal thought process present Thought content: Normal thought content present Course Course Course Narrative: 52-year-old female who presents emergency department for evaluation of cough, shortness of breath and wheezing. Patient was diagnosed with COVID-19 infection 02/01/2022 and did receive IV therapy at [facility] since she was not vaccinated. She is not certain what drug she was given but she states she had 1 IV dose. Patient does have a history of asthma. Patient's O2 saturation was 97% on room air. Her lung exam did reveal diffuse wheezing. Chest x-ray revealed no pneumonia. At this time I suspect that the patient's cough is secondary to her COVID-19 infection and her wheezing is probably related to her asthma therefore she was started on prednisone 60 mg once a day for 5 days. She was also given prescription for Tessalon Perles. She was given printed and verbal instructions and discharged home. MDM - SOB/Dyspnea Lab Data Labs: Lab Results 02/09/22 02/09/22 Range/Units 22:54 22:54 COVID-19 (ELDON) Negative (Negative) COVID-19 Clin Com See Note Influenza Type A (CHAVO) Negative (Negative) Influenza Type B (CHAVO) Negative (Negative) Influenza A & B Note See Note Discharge Plan Discharge Clinical Impression: COVID-19, Asthma with exacerbation Patient Disposition: Home, Self-Care Instructions: Asthma (ED) Additional Instructions: Your chest x-ray was normal with no evidence for pneumonia at this time which is reassuring. Your O2 saturation was 97% on room air, this is reassuring as well, since with COVID pneumonia you do not admit people to the hospital and lost her O2 saturation is 88% or lower. Continue using your albuterol inhaler 2 puffs every 4 hours as needed for wheezing and shortness of breath Take your Spiriva as directed by your doctor, do not stop this medication. Take prednisone 20 mg pills, 3 pills once a day for 5 days. While you are taking prednisone, do not take any NSAIDs (Motrin, Advil, ibuprofen, Aleve, naproxen). Take Tessalon Perles(benzonatate) 100 mg pills, 1 pill 3 times a day as needed for cough. Follow-up with your doctor in 2 days. Please return to the emergency department if your symptoms get worse or if you develop any symptoms that are concerning to you. Prescriptions: New prednisone 20 mg tablet 60 mg PO DAILY 5 Days Qty: 15 0RF benzonatate 100 mg capsule 100 mg PO TID PRN (Reason: cough) Qty: 20 0RF No Action prednisone 20 mg tablet 40 mg PO DAILY Qty: 10 0RF
[2022-02-10] MEDS: predniSONE 20 MG TABLET 60 MG PO (01:32)
--- NOTE | 2022-02-10 01:37 | PC.NURSE ---
pt a&ox3, vss, medicated per provider order.
== END 2022-02-10 01:37 | disposition home or self-care (01) ==
PROVIDERS: Emergency Provider Emergency Medicine Emergency Medical Services
DX: U07.1 COVID-19 (principal); J45.901 Unspecified asthma with (acute) exacerbation; R06.02 Shortness of breath; R05.9 Cough, unspecified; Z79.899 Other long term (current) drug therapy
CPT/HCPCS: 71045; 87502; 87635; 99282; 99283

== ENCOUNTER 2022-02-18 20:36 | Emergency (ER) | payer OTHER, SELFPAY ==
--- NOTE | ~2022-02-18 | XR_ITS ---
EXAMINATION: XR CHEST CLINICAL INFORMATION: Shortness of breath COMPARISON: 02/09/2022 TECHNIQUE: Frontal view of the chest was obtained. FINDINGS: The lung perez are grossly clear. The hilar structures are felt to be comparable. There is no significant effusion. The cardiac silhouette is felt to be comparable. XR/XR chest 1V IMPRESSION: No acute finding.
[2022-02-18 20:54] VITALS: BP 174/67; PULSE 71; RESP 18; TEMP 36.6; O2SAT 98; BMI 44.0
--- NOTE | 2022-02-18 20:57 | ECG_ITS ---
Test Reason : sob Blood Pressure : / mmHG Vent. Rate : 070 BPM Atrial Rate : 070 BPM P-R Int : 168 ms QRS Dur : 094 ms QT Int : 384 ms P-R-T Axes : 034 -02 029 degrees QTc Int : 414 ms Normal sinus rhythm Normal ECG No previous ECGs available Referred By: Eve Marrero Electronically Signed By:DARIEL MO MD
--- NOTE | 2022-02-18 20:58 | ED.SOB ---
HPI - SOB/Dyspnea General Chief Complaint: General Medical <SEVEN Humphreys - Last Filed: 02/18/22 21:01> Stated Complaint: Reaction to Medication/Jitters <SEVEN Humphreys - Last Filed: 02/18/22 21:01> Time Seen by Provider: 02/19/22 03:24 <SEVEN Humphreys - Last Filed: 02/18/22 21:01> Source: patient <Emiliano Ayon MD - Last Filed: 02/19/22 03:35> Mode of arrival: ambulatory <Emiliano Ayon MD - Last Filed: 02/19/22 03:35> Limitations: no limitations <Emiliano Ayon MD - Last Filed: 02/19/22 03:35> History of Present Illness HPI Narrative: Patient history of asthma not vaccinated against COVID symptoms started on 01/30 diagnosed with COVID on 02/01 since then patient has been here 3 times chest x-ray negative seen PCP and Urgent Care with started on prednisone and comes here as still coughing and not getting better patient saturating 99% at room no leg swelling no fever no chills no chest pain <Emiliano Ayon MD - Last Filed: 02/19/22 03:35> Related Data Home Medications: Previous Rx's Medication Instructions Recorded prednisone 20 mg tablet 40 mg PO DAILY #10 tabs 02/02/22 benzonatate 100 mg capsule 100 mg PO TID PRN cough #20 caps 02/10/22 prednisone 20 mg tablet 60 mg PO DAILY 5 days #15 tabs 02/10/22 doxycycline hyclate 100 mg tablet 100 mg PO BID #20 tabs 02/19/22 <SEVEN Humphreys - Last Filed: 02/18/22 21:01> Allergies/Adverse Reactions: Allergies Allergy/AdvReac Type Severity Reaction Status Date / Time No Known Allergies Allergy Verified 02/18/22 20:54 [No Known Allergies*] <SEVEN Humphreys - Last Filed: 02/18/22 21:01> Review of Systems Review of Systems: Yes all other systems are reviewed and are negative <Emiliano Ayon MD - Last Filed: 02/19/22 03:35> [facility] Social History Social History: Social History Patient Tobacco Use Status: Never used Tobacco <SEVEN Humphreys - Last Filed: 02/18/22 21:01> Physical Exam Vital Signs: Vital Signs: Last Vital Signs Temp 97.9 F 02/18/22 20:54 Pulse 71 02/18/22 20:54 Resp 18 02/18/22 20:54 BP 174/67 H 02/18/22 20:54 Pulse Ox 98 02/18/22 20:54 O2 Del Method 02/18/22 20:54 BMI result Body Mass Index 44.0 <SEVEN Humphreys - Last Filed: 02/18/22 21:01> Vital Signs: Last Vital Signs Temp 97.9 F 02/18/22 20:54 Pulse 71 02/18/22 20:54 Resp 18 02/18/22 20:54 BP 174/67 H 02/18/22 20:54 Pulse Ox 98 02/18/22 20:54 O2 Del Method 02/18/22 20:54 BMI result Body Mass Index 44.0 <Emiliano Ayon MD - Last Filed: 02/19/22 03:35> Appearance: Alert. Oriented X3. No acute distress. ENT: Pharynx normal. Oral Mucosa moist Neck: Normal inspection. Neck supple. CVS: Normal heart rate and rhythm. Pulses normal. Respiratory: No respiratory distress. Equal air entry bilateral, prolonged expiration no wheezing/rales/rhonchi Abdomen: Soft and nontender. Bowel sounds are present, no mass palpable, no CVA tenderness Skin: Skin warm and dry. Normal skin color. Normal skin turgor. Extremities: No lower extremity edema. No calf tenderness Neuro: Oriented X 3. No motor deficit. <Emiliano Ayon MD - Last Filed: 02/19/22 03:35> Course Course Course Narrative: RME--52yo F pmhx asthma c/o SOB s/p starting new BP mediation (Carvedilol). Was seen at dx w/bronchitis started on inhalers and tessalon pearls. Denies CP EKG, labs, CXR, covid/flu testing ordered <SEVEN Humphreys - Last Filed: 02/18/22 21:01> MDM - SOB/Dyspnea MDM Narrative Medical decision making narrative: Patient chest x-ray negative lab stable post COVID cough on prednisone inhaler and then tonight will add doxycycline for chronic persistent cough for tracheobronchitis <Emiliano Ayon MD - Last Filed: 02/19/22 03:35> Lab Data Attestation: I reviewed the patient's lab results. <Emiliano Ayon MD - Last Filed: 02/19/22 03:35> Result diagrams: : 02/18/22 21:12 02/18/22 21:12 <SEVEN Humphreys - Last Filed: 02/18/22 21:01> Labs: Lab Results 02/18/22 02/18/22 02/18/22 Range/Units 21:12 21:12 21:12 WBC 11.6 H (4.8-10.8) X10*3/uL RBC 4.49 (4.20-5.50) X10*6/uL Hgb 10.7 L (12.0-16.0) g/dl Hct 34.1 L (37.0-47.0) % MCV 75.9 L (80.0-98.0) fL MCH 23.8 L (27.0-33.0) pg MCHC 31.4 (31.0-35.0) g/dl RDW 19.9 H (11.0-16.0) % Plt Count 360 (160-400) X10*3/uL MPV 8.8 L (9.4-12.3) fL Immature Gran % (Auto) 0.8 H (0.0-0.4) % Neut % (Auto) 66.5 (45-73) % Lymph % (Auto) 21.7 (20-40) % [place] % (Auto) 8.4 (2-11) % Eos % (Auto) 2.2 (0-4) % Baso % (Auto) 0.4 (0-2) % Lymph # (Auto) 2.5 (1.2-4.9) X10*3/uL [place] # (Auto) 1.0 (0.1-1.2) X10*3/uL Eos # (Auto) 0.3 (0.0-0.4) X10*3/uL Baso # (Auto) 0.1 (0.0-0.2) X10*3/uL Abs Immat Gran (auto) 0.09 H (0.00-0.03) X10*3/uL Absolute Neuts (auto) 7.7 (2.0-8.3) x10*3/uL Absolute Nucleated RBC 0.000 (0.0-0.012) X10*3/uL Nucleated RBC % (auto) 0.0 (0.0-0.2) /100WBC Sodium 138 (135-145) mmol/L Potassium 3.7 (3.3-5.1) mmol/L Chloride 99 (96-108) mmol/L Carbon Dioxide 26 (22-29) mmol/L Anion Gap 17 (12-20) BUN 18 H (9-16) mg/dL Creatinine 1.22 (0.5-1.4) mg/dL Estim Creat Clear Calc 55.7 Estimated GFR 46 Random Glucose 107 (60-115) mg/dL Calcium 8.9 (8.4-10.2) mg/dL Troponin I High Sens < 3.5 (<3.5-17.0) ng/L B-Natriuretic Peptide (<100) pg/mL COVID-19 ([facility]) (Negative) COVID-19 Clin Com Influenza Type A ([facility]) (Negative) Influenza Type B ([facility]) (Negative) Influenza A & B Note 02/18/22 02/18/22 02/18/22 Range/Units 21:12 21:12 21:12 WBC (4.8-10.8) X10*3/uL RBC (4.20-5.50) X10*6/uL Hgb (12.0-16.0) g/dl Hct (37.0-47.0) % MCV (80.0-98.0) fL MCH (27.0-33.0) pg MCHC (31.0-35.0) g/dl RDW (11.0-16.0) % Plt Count (160-400) X10*3/uL MPV (9.4-12.3) fL Immature Gran % (Auto) (0.0-0.4) % Neut % (Auto) (45-73) % Lymph % (Auto) (20-40) % [place] % (Auto) (2-11) % Eos % (Auto) (0-4) % Baso % (Auto) (0-2) % Lymph # (Auto) (1.2-4.9) X10*3/uL [place] # (Auto) (0.1-1.2) X10*3/uL Eos # (Auto) (0.0-0.4) X10*3/uL Baso # (Auto) (0.0-0.2) X10*3/uL Abs Immat Gran (auto) (0.00-0.03) X10*3/uL Absolute Neuts (auto) (2.0-8.3) x10*3/uL Absolute Nucleated RBC (0.0-0.012) X10*3/uL Nucleated RBC % (auto) (0.0-0.2) /100WBC Sodium (135-145) mmol/L Potassium (3.3-5.1) mmol/L Chloride (96-108) mmol/L Carbon Dioxide (22-29) mmol/L Anion Gap (12-20) BUN (9-16) mg/dL Creatinine (0.5-1.4) mg/dL Estim Creat Clear Calc Estimated GFR Random Glucose (60-115) mg/dL Calcium (8.4-10.2) mg/dL Troponin I High Sens (<3.5-17.0) ng/L B-Natriuretic Peptide 12 (<100) pg/mL COVID-19 ([facility]) Negative (Negative) COVID-19 Clin Com See Note Influenza Type A ([facility]) Negative (Negative) Influenza Type B ([facility]) Negative (Negative) Influenza A & B Note See Note <SEVEN Humphreys - Last Filed: 02/18/22 21:01> Lab Results 02/18/22 02/18/22 02/18/22 Range/Units 21:12 21:12 21:12 WBC 11.6 H (4.8-10.8) X10*3/uL RBC 4.49 (4.20-5.50) X10*6/uL Hgb 10.7 L (12.0-16.0) g/dl Hct 34.1 L (37.0-47.0) % MCV 75.9 L (80.0-98.0) fL MCH 23.8 L (27.0-33.0) pg MCHC 31.4 (31.0-35.0) g/dl RDW 19.9 H (11.0-16.0) % Plt Count 360 (160-400) X10*3/uL MPV 8.8 L (9.4-12.3) fL Immature Gran % (Auto) 0.8 H (0.0-0.4) % Neut % (Auto) 66.5 (45-73) % Lymph % (Auto) 21.7 (20-40) % [place] % (Auto) 8.4 (2-11) % Eos % (Auto) 2.2 (0-4) % Baso % (Auto) 0.4 (0-2) % Lymph # (Auto) 2.5 (1.2-4.9) X10*3/uL [place] # (Auto) 1.0 (0.1-1.2) X10*3/uL Eos # (Auto) 0.3 (0.0-0.4) X10*3/uL Baso # (Auto) 0.1 (0.0-0.2) X10*3/uL Abs Immat Gran (auto) 0.09 H (0.00-0.03) X10*3/uL Absolute Neuts (auto) 7.7 (2.0-8.3) x10*3/uL Absolute Nucleated RBC 0.000 (0.0-0.012) X10*3/uL Nucleated RBC % (auto) 0.0 (0.0-0.2) /100WBC Sodium 138 (135-145) mmol/L Potassium 3.7 (3.3-5.1) mmol/L Chloride 99 (96-108) mmol/L Carbon Dioxide 26 (22-29) mmol/L Anion Gap 17 (12-20) BUN 18 H (9-16) mg/dL Creatinine 1.22 (0.5-1.4) mg/dL Estim Creat Clear Calc 55.7 Estimated GFR 46 Random Glucose 107 (60-115) mg/dL Calcium 8.9 (8.4-10.2) mg/dL Troponin I High Sens < 3.5 (<3.5-17.0) ng/L B-Natriuretic Peptide (<100) pg/mL COVID-19 ([facility]) (Negative) COVID-19 Clin Com Influenza Type A ([facility]) (Negative) Influenza Type B ([facility]) (Negative) Influenza A & B Note 02/18/22 02/18/22 02/18/22 Range/Units 21:12 21:12 21:12 WBC (4.8-10.8) X10*3/uL RBC (4.20-5.50) X10*6/uL Hgb (12.0-16.0) g/dl Hct (37.0-47.0) % MCV (80.0-98.0) fL MCH (27.0-33.0) pg MCHC (31.0-35.0) g/dl RDW (11.0-16.0) % Plt Count (160-400) X10*3/uL MPV (9.4-12.3) fL Immature Gran % (Auto) (0.0-0.4) % Neut % (Auto) (45-73) % Lymph % (Auto) (20-40) % [place] % (Auto) (2-11) % Eos % (Auto) (0-4) % Baso % (Auto) (0-2) % Lymph # (Auto) (1.2-4.9) X10*3/uL [place] # (Auto) (0.1-1.2) X10*3/uL Eos # (Auto) (0.0-0.4) X10*3/uL Baso # (Auto) (0.0-0.2) X10*3/uL Abs Immat Gran (auto) (0.00-0.03) X10*3/uL Absolute Neuts (auto) (2.0-8.3) x10*3/uL Absolute Nucleated RBC (0.0-0.012) X10*3/uL Nucleated RBC % (auto) (0.0-0.2) /100WBC Sodium (135-145) mmol/L Potassium (3.3-5.1) mmol/L Chloride (96-108) mmol/L Carbon Dioxide (22-29) mmol/L Anion Gap (12-20) BUN (9-16) mg/dL Creatinine (0.5-1.4) mg/dL Estim Creat Clear Calc Estimated GFR Random Glucose (60-115) mg/dL Calcium (8.4-10.2) mg/dL Troponin I High Sens (<3.5-17.0) ng/L B-Natriuretic Peptide 12 (<100) pg/mL COVID-19 ([facility]) Negative (Negative) COVID-19 Clin Com See Note Influenza Type A ([facility]) Negative (Negative) Influenza Type B ([facility]) Negative (Negative) Influenza A & B Note See Note <Emiliano Ayon MD - Last Filed: 02/19/22 03:35> Discharge Plan Discharge Clinical Impression: COVID-19 <SEVEN Humphreys - Last Filed: 02/18/22 21:01> Patient Disposition: Home, Self-Care <SEVEN Humphreys - Last Filed: 02/18/22 21:01> Instructions: COVID-19 (Coronavirus Disease 2019) (ED) <SEVEN Humphreys - Last Filed: 02/18/22 21:01> Additional Instructions: Continue medication as prescribed Antibiotic as prescribed The chest x-ray is negative in your oxygen is normal Continue your inhaler <SEVEN Humphreys - Last Filed: 02/18/22 21:01> Prescriptions: New doxycycline hyclate 100 mg tablet 100 mg PO BID Qty: 20 0RF No Action prednisone 20 mg tablet 60 mg PO DAILY 5 Days Qty: 15 0RF benzonatate 100 mg capsule 100 mg PO TID PRN (Reason: cough) Qty: 20 0RF prednisone 20 mg tablet 40 mg PO DAILY Qty: 10 0RF <SEVEN Humphreys - Last Filed: 02/18/22 21:01>
[2022-02-18 21:18] LABS: MANUAL DIFF FLAG NO
[2022-02-18 21:22] LABS: Basophils Absolute Auto 0.1 X10*3/uL (0.0-0.2); Basophils Percent Auto 0.4 % (0-2); Eosinophils Absolute Auto 0.3 X10*3/uL (0.0-0.4); Eosinophils Percent Auto 2.2 % (0-4); Hematocrit 34.1 % (37.0-47.0); Hemoglobin 10.7 g/dl (12.0-16.0); Imm Gran Abs Auto 0.09 X10*3/uL (0.00-0.03); Imm Gran Pct Auto 0.8 % (0.0-0.4); Lymphocytes Absolute Auto 2.5 X10*3/uL (1.2-4.9); Lymphocytes Percent Auto 21.7 % (20-40); Mean Corpuscular HGB Conc 31.4 g/dl (31.0-35.0); Mean Corpuscular Hemoglobin 23.8 pg (27.0-33.0); Mean Corpuscular Volume 75.9 fL (80.0-98.0); Mean Platelet Volume 8.8 fL (9.4-12.3); Monocytes Percent Auto 8.4 % (2-11); Neutrophils Absolute Auto 7.7 x10*3/uL (2.0-8.3); Neutrophils Percent Auto 66.5 % (45-73); Platelet Count 360 X10*3/uL (160-400); Red Blood Count 4.49 X10*6/uL (4.20-5.50); Red Cell Distribution Width 19.9 % (11.0-16.0); White Blood Count 11.6 X10*3/uL (4.8-10.8)
[2022-02-18 21:33] LABS: Anion Gap 17 (12-20); Blood Urea Nitrogen 18 mg/dL (9-16); Calcium 8.9 mg/dL (8.4-10.2); Carbon Dioxide 26 mmol/L (22-29); Chloride 99 mmol/L (96-108); Creatinine Clr Calc Pharmacy 55.7; Estimated Glomerular Filt Rate 46; Glucose Random 107 mg/dL (60-115); Potassium 3.7 mmol/L (3.3-5.1); Sodium 138 mmol/L (135-145)
[2022-02-18 21:37] LABS: COVID-19 Test Negative (Negative); IDNOW Serial# 16C4AD1C; Influenza A Negative (Negative); Influenza B2 Negative (Negative)
[2022-02-18 21:41] LABS: B Type Natriuretic Peptide 12 pg/mL (<100); Troponin-I High Sensitivity < 3.5 ng/L (<3.5-17.0)
== END 2022-02-19 04:36 | disposition home or self-care (01) ==
LOC: HO.ED 02-19 03:42
PROVIDERS: Physician Assistant; Emergency Provider Internal Medicine; PCP Family Medicine
DX: U07.1 COVID-19 (principal); R05.9 Cough, unspecified; Z79.899 Other long term (current) drug therapy
CPT/HCPCS: 36415; 71045; 80048; 83880; 84484; 85025; 87502; 87635; 93005; 99283